=== PATIENT | male | born 1935 | race Caucasian/White ===

== ENCOUNTER 2020-02-22 22:30 | Observation (INO) ==
--- NOTE | 2020-02-22 23:35 | DR.ABDMALE ---
HPI Time seen Time Seen by Provider: 02/22/20 23:34 PCP Primary Care Physician: LEXI HPI comment HPI Comment: PATIENT IS 84YR OLD MALE IN ER WITH ABDOMINAL PAIN WORSE FOR SEVERAL HOURS. PATIENT IS HAVING NAUSEA WITH PAIN. DENIES FEVER, DIARRHEA OR DYSURIA. DENIES SIMILAR PAIN PREVIOULY. PAIN IS 8/10 AND RADIATES TO THE BACK. Complaint Chief Complaint Doctors Comments: ABDOMINAL PAIN TIMES SEVERAL HOURS. Chief Complaint:: Having abdominal pain. Pt states he thought it was just gas pains, but has gotten worse in the last few hours. Last bowel movement was this morning. Patient states he has not took any medications for the pain. The pain started at 11AM this morning. Self Treatment fo Chief Complaint: NONE COVID-19 Coronavirus risk:travel/contact w/high risk person: No Has patient experienced Coronavirus symptoms: No Reviewed Nurses Notes Review: Yes Mode of arrival Mode of Arrival: Ambulatory Timing Onset of Chief Complaint: 02/22/20 Came on: Suddenly Duration Duration: Constant Duration: Hours Location Location: Diffuse Severity Severity: Moderate Quality Quality: Sharp Context Onset: Suddenly History of: None Modifying factors Worsening Factors: Exertion Improving Factors: Lying Still Associated signs and symptoms Associated Signs and Symptoms: Nausea PMH PMH Past Medical History: Yes Past Medical History: Arthritis Past Surgical History: Yes Surgical History: Ortho Surgery Past Surgical History Comment: Left knee replacement, Sublingual hernia repair Family History History of Family Medical Conditions: No Social History Does patient currently use any type of tobacco product: No Have you used tobacco products in the last 12 months: No Type of Tobacco Use: None Does any household member use tobacco: No Alcohol Use: None Do you use any recreational Drugs:: No Lives With: Alone Lives Where: Home Infectious screening In the last 2 months have you had wt loss of >10#?: NO Have you had fever, night sweats or hemotysis?: No Have you traveled outside the country in the last 6 months?: No Isolation: Standard ROS Review of Systems Constitutional: No Symptoms Reported and See HPI; negative Fever, Weakness and Fatigue Eyes: No Symptoms Reported and See HPI ENTM: No Symptoms Reported and See HPI; negative Nose Discharge and Nose Congestion Respiratoy: No Symptoms Reported and See HPI; negative Moist Cough, Short of Breath and Wheezing Cardiovascular: No Symptoms Reported and See HPI Gastrointestinal/Abdominal: No Symptoms Reported, See HPI, Abdominal Pain and Nausea; negative Diarrhea and Vomiting Genitourinary: No Symptoms Reported and See HPI; negative Dysuria Neurological: No Symptoms Reported and See HPI; negative Headache, Weakness and Dizziness Musculoskeletal: No Symptoms Reported, See HPI and Back Pain; negative Muscle Pain Integumentary: No Symptoms Reported and See HPI; negative Change in Color, Rash and Juandice Hematologic/Lymphatic: See HPI and Easy Bruising; negative Swollen Glands Endocrine: See HPI and Decreased Appetite; negative Increased Thirst and Increased Urine Psychiatric: No Symptoms Reported and See HPI All Other Systems: Reviewed and Negative PE Vital Signs Vital Signs: Temp Pulse Resp BP Pulse Ox 02/23/20 04:51 20 02/23/20 04:21 18 02/22/20 22:37 97.8 F 73 22 197/79 100 General Limitations: No Limitations General Appearance: Alert and In No Apparent Distress Head Head Exam: Normal Inspection Eyes Eye exam: Normal Appearance and PERRL; negative Scleral Icterus and Conjunctival Injection ENT ENT Exam: Normal Exam, Normal Oropharynx, Normal External Ear Exam and TM's Normal Bilaterally Neck Neck Exam: Normal Inspection and Trachea Midline; negative Tenderness and Lymphadenopathy Chest Chest Inspection: Normal Inspection and Symmetric Chest Wall Rise; negative Tenderness Respiratory Respiratory Exam: Normal Lung Sounds Bilat; negative Accessory Muscle Use, Chest Wall Tenderness and Respiratory Distress Respiratory Exam: Bilateral: Rhonchi and Lower: Rhonchi Cardiovascular Cardiovascular Exam: Regular Rate, Normal Rhythm and Normal Heart Sounds; negative Systolic Murmur and Diastolic Murmur Abdominal Exam Abdominal Exam: Normal Inspection, Normal Bowel Sounds and Soft; negative T enderness Rectal Rectal Exam: Deferred Back Back Exam: Normal Inspection; negative (R) CVA Tenderness and (L) CVA Tenderness Extremeties Extremities Exam: Normal Inspection and Normal Capillary Refill; negative Tenderness, Edema and Calf Tenderness Exam: Male: Deferred Neurologic Neurological Exam: Alert and Oriented X3 Psychiatric Psychiatric Exam: Normal Affect and Normal Mood Skin Skin Exam: Warm, Dry, Intact and Normal Color MDM Additional Information Obtained From Additional information provided by: Old Records Differential Diagnosis Differential Diagnosis: Bowel Obstruction, Cholcystitis, Cholelethiasis, Constipation, Diverticular disease, Gastritus/PUD, Gastroenteritis, Inflammatory BD, Pancreatitis, Urinary tract infection and Urolithiasis COURSE Treatment Treatment: SEE ORDERS. Consultation Consultation Comments: PATIENT DISCUSSED WITH DR. LAN AND HE WILL ADMIT PATIENT. Education/Counseling Education/Counseling: Patient Educated On: Diagnosis and Needs for Follow Up ROR Labs Reviewed Laboratory Results Reviewed?: Yes Result Diagrams: 02/25/20 05:43 02/25/20 05:43 Laboratory: WBC 9.8 X10^3/uL (3.6-10.0) 02/22/20 23:51 RBC 4.33 X10^6/uL (4.7-6.0) L 02/22/20 23:51 Hgb 13.4 g/dL (13.5-18.0) L 02/22/20 23:51 Hct 40.4 % (42.0-54.0) L 02/22/20 23:51 MCV 93.5 fL (80.0-100.0) 02/22/20 23:51 MCH 31.0 pg (27.0-34.0) 02/22/20 23:51 MCHC 33.1 g/dL (33.0-35.0) 02/22/20 23:51 RDW 14.0 % (11.6-16.5) 02/22/20 23:51 Plt Count 145 X10^3/uL (150.0-450.0) L 02/22/20 23:51 MPV 9.3 fL (7.4-11.0) 02/22/20 23:51 Neut % (Auto) 84.6 % (42.0-75.0) H 02/22/20 23:51 Lymph % (Auto) 7.0 % (21.0-51.0) L 02/22/20 23:51 [place] % (Auto) 8.2 % (0.0-13.0) 02/22/20 23:51 Eos % (Auto) 0.0 % (0.9-2.9) L 02/22/20 23:51 Baso % (Auto) 0.2 % (0.2-1.0) 02/22/20 23:51 Neut # (Auto) 8.3 x10^3/uL (2.2-4.8) H 02/22/20 23:51 Lymph # (Auto) 0.7 X10^3/uL (1.3-2.9) L 02/22/20 23:51 [place] # (Auto) 0.8 x10^3/uL (0.3-0.8) 02/22/20 23:51 Eos # (Auto) 0.0 x10^3/uL (0.0-0.2) 02/22/20 23:51 Baso # (Auto) 0.0 X10^3/uL (0.0-0.1) 02/22/20 23:51 Absolute Nucleated RBC 0.0 /100WBC 02/22/20 23:51 Sodium 141 mmol/L (136-145) 02/22/20 23:51 Corrected Sodium 142 mmol/L (136-145) 02/22/20 23:51 Potassium 3.9 mmol/L (3.5-5.1) 02/22/20 23:51 Chloride 104 mmol/L (98-107) 02/22/20 23:51 Carbon Dioxide 28.7 mmol/L (21-32) 02/22/20 23:51 BUN 17 mg/dL (7-18) 02/22/20 23:51 Creatinine 0.98 mg/dL (0.70-1.30) 02/22/20 23:51 Est GFR (MDRD) Af Amer > 60 (>60) 02/22/20 23:51 Est GFR (MDRD) Non-Af > 60 (>60) 02/22/20 23:51 Glucose 134 mg/dL (65-99) H 02/22/20 23:51 Calcium 9.7 mg/dL (8.5-10.1) 02/22/20 23:51 Corrected Calcium 10.3 mg/dL (8.5-10.1) H 02/22/20 23:51 Total Bilirubin 1.10 mg/dL (0.2-1.0) H 02/22/20 23:51 AST 20 Units/L (15-37) 02/22/20 23:51 ALT 18 Units/L (12-78) 02/22/20 23:51 Alkaline Phosphatase 72 Units/L (46-116) 02/22/20 23:51 Creatine Kinase 30 Units/L (39-308) L 02/22/20 23:51 CK-MB (CK-2) 1.8 ng/mL (0-4.0) 02/22/20 23:51 CK/CKMB % Calc 6.0 % (<4) 02/22/20 23:51 Troponin I < 0.02 ng/mL (0-1.5) 02/22/20 23:51 Total Protein 6.4 g/dL (6.4-8.2) 02/22/20 23:51 Albumin 3.3 g/dL (3.4-5.0) L 02/22/20 23:51 Globulin 3.1 g/dL (2.5-4.5) 02/22/20 23:51 Albumin/Globulin Ratio 1.1 Ratio (1.1-2.1) 02/22/20 23:51 Amylase 101 Units/L (25-115) 02/22/20 23:51 Lipase 126 Units/L (73-393) 02/22/20 23:51 Specimen Type Clean catch urine 02/23/20 00:20 Urine Color Yellow (YELLOW) 02/23/20 00:20 Urine Appearance Clear (CLEAR) 02/23/20 00:20 Urine pH 6.0 (5.0 - 8.0) 02/23/20 00:20 Ur Specific [place] 1.020 (1.000-1.030) 02/23/20 00:20 Urine Protein 1+ (NEGATIVE) 02/23/20 00:20 Urine Glucose (UA) Negative (NEGATIVE) 02/23/20 00:20 Urine Ketones 3+ (NEGATIVE) 02/23/20 00:20 Urine Occult Blood 2+ (NEGATIVE) 02/23/20 00:20 Urine Nitrite Negative (NEGATIVE) 02/23/20 00:20 Urine Bilirubin Negative (NEGATIVE) 02/23/20 00:20 Urine Urobilinogen Normal (NORMAL) 02/23/20 00:20 Ur Leukocyte Esterase Negative (NEGATIVE) 02/23/20 00:20 Urine RBC 3-5 /HPF (0-3) A 02/23/20 00:20 Urine WBC None seen /HPF (0-5) 02/23/20 00:20 Ur Squamous Epith Cells Rare /HPF (NEGATIVE) 02/23/20 00:20 Urine Bacteria Negative /HPF (NEGATIVE) 02/23/20 00:20 Urine Mucus Moderate /HPF (NEGATIVE) 02/23/20 00:20 Ur Culture Indicated? No/not indicated 02/23/20 00:20 SARS CoV-2 RNA Rapid SOWMYA Negative (NEGATIVE) 02/23/20 04:20 XRAY XRAY Interpreted by: Radiologist (REPORT NOTED AND DISSSED WITH PATIENT.) and Self EKG Rate: 69 [place]: LAD Rhythm: NSR Block: IVCD Hypertrophy: None ST: Nonsp Opioid Opioid Risk Tool Age (Jeronimo box if 16-45): No History of Preadolescent Sexual Abuse: No Total: 0 Total Score Risk Category: Low Risk Copyright: Triston OROZCO predicting aberrant behaviors Diagnosis Discharge Problem: Cholelithiasis Qualifiers: Cholelithiasis location: gallbladder Cholecystitis presence: with cholecystitis Cholecystitis acuity: acute Biliary obstruction: with biliary obstruction Qualified Code(s): K80.01 - Calculus of gallbladder with acute cholecystitis with obstruction Abdominal pain Qualifiers: Abdominal location: generalized Qualified Code(s): R10.84 - Generalized abdominal pain Instructions Instructions: Benign Prostatic Hypertrophy Laparoscopic Cholecystectomy, Care After Dumping Syndrome Diet Indwelling Urinary Catheter Care, Adult, [id number] Cholecystitis, [id number] Dumping Syndrome Preventing Constipation After Surgery Forms: Precautions for COVID19 Patient Portal Social Distancing
[2020-02-22] MEDS ORDERED: PEPCID 20 MG IV PREMIX* 20 MG/50 ML BAG IV ONE (23:40)
[2020-02-23 00:01] LABS: BASOPHILS % (AUTO) 0.2 % (0.2-1.0); HEMATOCRIT 40.4 % (42.0-54.0); HEMOGLOBIN 13.4 g/dL (13.5-18.0); LYMPHOCYTES # (AUTO) 0.7 X10^3/uL (1.3-2.9); MEAN CORPUSCULAR HGB CONC 33.1 g/dL (33.0-35.0); MEAN CORPUSCULAR VOLUME 93.5 fL (80.0-100.0); MEAN PLATELET VOLUME 9.3 fL (7.4-11.0); MONOCYTES # (AUTO) 0.8 x10^3/uL (0.3-0.8); MONOCYTES % (AUTO) 8.2 % (0.0-13.0); NEUTROPHILS # (AUTO) 8.3 x10^3/uL (2.2-4.8); NEUTROPHILS % (AUTO) 84.6 % (42.0-75.0); PLATELET COUNT 145 X10^3/uL (150.0-450.0); RED BLOOD COUNT 4.33 X10^6/uL (4.7-6.0); WHITE BLOOD COUNT 9.8 X10^3/uL (3.6-10.0)
[2020-02-23 00:16] LABS: BLOOD UREA NITROGEN 17 mg/dL (7-18); CALCIUM 9.7 mg/dL (8.5-10.1); CARBON DIOXIDE 28.7 mmol/L (21-32); CHLORIDE 104 mmol/L (98-107); COR NA(FOR HYPERGLY) 142 mmol/L (136-145); CREATININE 0.98 mg/dL (0.70-1.30); SODIUM 141 mmol/L (136-145); TROPONIN I < 0.02 ng/mL (0-1.5); eGFR NON BLACK RACES > 60 (>60)
[2020-02-23 00:20] LABS: ALANINE AMINOTRANSFERASE 18 Units/L (12-78); ALBUMIN 3.3 g/dL (3.4-5.0); ALKALINE PHOSPHATASE 72 Units/L (46-116); AMYLASE 101 Units/L (25-115); ASPARTATE AMINO TRANSFERASE 20 Units/L (15-37); COR CA(FOR HYPOALB) 10.3 mg/dL (8.5-10.1); CREATINE KINASE 30 Units/L (39-308); CREATINE KINASE MB 1.8 ng/mL (0-4.0); LIPASE 126 Units/L (73-393); TOTAL PROTEIN 6.4 g/dL (6.4-8.2)
[2020-02-23] MEDS ORDERED: PEPCID 20 MG IV PREMIX* 20 MG/50 ML BAG IV ONE (00:25)
[2020-02-23] MEDS ORDERED: NS 100 ML IV 100 ML IV ONE (00:47)
[2020-02-23 00:59] LABS: BILIRUBIN,URINE NEGATIVE (NEGATIVE); BLOOD/HEMOGLOBIN,URINE 2+ (NEGATIVE); GLUCOSE, URINE NEGATIVE (NEGATIVE); KETONES,URINE 3+ (NEGATIVE); LEUKOCYTE ESTERASE ,URINE NEGATIVE (NEGATIVE); NITRITES,URINE NEGATIVE (NEGATIVE); PROTEIN,URINE 1+ (NEGATIVE); UROBILINOGEN,URINE NORMAL (NORMAL)
[2020-02-23 01:09] LABS: APPEARANCE,URINE CLEAR (CLEAR); BACTERIA,URINE NEGATIVE /HPF (NEGATIVE); COLOR,URINE YELLOW (YELLOW); MUCUS,URINE MODERATE /HPF (NEGATIVE); SQUAMOUS EPITHELIAL CELL,UR RARE /HPF (NEGATIVE)
--- NOTE | 2020-02-23 02:49 | CT ---
HISTORYPT C/O ABDOMINAL PAINSTUDYABDOMEN/PELVIS WITH CONCOMPARISONNoneTECHNIQUEMultiple axial images of the abdomen and pelvis were obtained from the lung bases to the pubic symphysis after the administration of IV contrast. Dose reduction techniques including Automated Exposure Control (AEC) and adjustment of mA and kV were utilized.FINDINGSThe visualized portions of the lung bases are unremarkable . The, spleen, pancreas, kidneys, and adrenal glands are unremarkable in their CT appearance. The liver is normal in size. There is a well-circumscribed 7.8 cm hepatic cyst. No biliary ductal dilatation. The gallbladder is present contains calcified gallstones and is markedly distended. There is evidence of mild gallbladder wall thickening and/or pericholecystic fluid.. No significant mesenteric lymphadenopathy or stranding can be observed. No free fluid or free air is seen within the abdomen. No bowel wall thickening or bowel dilatation is present. The the colon is normal in caliber. There are numerous diverticula arising from the descending and sigmoid colon without evidence of acute diverticulitis.. There is marked prostate gland hypertrophy which indents the floor of the urinary bladder. The bony structures are grossly intact.IMPRESSIONCholelithiasis with gallbladder distention and mild gallbladder wall thickening and/or pericholecystic fluid. Findings raise the possibility of acute cholecystitis. Correlate clinically.Colonic diverticulosis without evidence of diverticulitis.Marked prostate gland hypertrophy.Electronically signed by: Corby Chen (Feb 23, 2020 02:47:47)
[2020-02-23] MEDS ORDERED: DEMEROL INJ IVP ONE (04:12)
[2020-02-23] MEDS ORDERED: ZOFRAN INJ 4 MG VIAL IVP ONE ×2 (04:12→08:00)
[2020-02-23] MEDS ORDERED: DEMEROL INJ ONE ×2 (04:14→07:21)
[2020-02-23] MEDS ORDERED: ZOFRAN INJ 4 MG VIAL ONE ×3 (04:14→14:15)
--- NOTE | 2020-02-23 07:19 | RAD ---
HISTORYSURGICAL CLEARANCESTUDYCHEST, 1 VIEWCOMPARISONNoneTECHNIQUEAP view of the chestFINDINGSCardiac and mediastinal contours are within normal limits. Lungs are hyperexpanded with lucencies and mild scattered interstitial opacities. No definite pleural effusion or pneumothorax.IMPRESSIONSuspect underlying emphysema.Electronically signed by: Delio Christensen (Feb 23, 2020 07:17:52)
[2020-02-23] MEDS ORDERED: NS 1000 ML 1,000 ML ONE (07:22)
[2020-02-23] MEDS ORDERED: DEMEROL INJ IVP PRN (07:39)
[2020-02-23] MEDS ORDERED: NS 1000 ML 1,000 ML IV SCH ×2 (08:00→08:58)
[2020-02-23] MEDS ORDERED: ZOFRAN INJ 4 MG VIAL IVP PRN ×2 (08:58→15:34)
[2020-02-23] MEDS ORDERED: PEPCID 20 MG IV PREMIX* 20 MG/50 ML BAG IV PRN (08:58)
[2020-02-23] MEDS ORDERED: DILAUDID INJ IVP STA (12:19)
--- NOTE | 2020-02-23 12:51 | DR.H&P ---
H&P - History & Physical for Day of: H&P Date: 02/23/20 - Chief Complaint Chief Complaint: abdominal pain, n/v - History of Present Illness History of Present Illness: PT IS 84 WM ER ADMISSION WITH CO ABDOMINAL PAIN, ONSET SUNDAY AROUND NOON AFTER EATING. PT DENIES ANY CHEST PAIN OR SOB, DENIES FEVER OR FLU LIKE SYMPTOMS. PT DENIES ANY PMH OF CAD OR HTN. PT REPORTS TAKING FLOMAX FOR BPH PRN. PT HAD CT ABD/PELVIS WITH ACUTE CHOLECYSTITIS. PT ADMITTED FOR TREATMENT OF ACUTE ILLNESS. - Past Medical History Past Medical History: Arthritis - Past Surgical History Surgical History: Ortho Surgery Additional Surgical History: HERNIA REPAIR - Social History Does patient currently use any type of tobacco product: No Have you used tobacco products in the last 12 months: No Type of Tobacco Use: None Does any household member use tobacco: No Alcohol Use: None Prescription drug monitoring program results: PDMP reviewed and no concerns identified - Medications Home Medications: No Known Drug Allergies Allergy (Verified 02/22/20 22:47) CONTINUE taking the following medications tamsulosin [Flomax] 0.4 mg PO DAILY 02/23/20 [History] - Review of Systems Constitutional: No Symptoms Reported. denies: Fever, Chills Eyes: No Symptoms Reported ENT: No Symptoms Reported Respiratory: No Symptoms Reported Cardiovascular: No Symptoms Reported Gastrointestinal: Nausea, Vomiting, Abdominal Pain Genitourinary: No Symptoms Reported Musculoskeletal: No Symptoms Reported Skin: No Symptoms Reported Neurological: No Symptoms Reported - Physical Exam Vital Signs: Temperature 98.3 F Pulse Rate [Left Brachial] 68 Pulse Rate 73 Respiratory Rate 18 Blood Pressure [Left Arm] 172/80 Blood Pressure 197/79 O2 Sat by Pulse Oximetry 100 Oriented: Normal Eyes: Normal Ear: Normal Nose: Normal Throat: Normal Respiratory: RLL Diminished, LLL Diminished Cardiovascular: Normal : Normal Auscultation: Bowel Sounds: Normal Palpation: Normal Tenderness: Normal Skin: Decreased [place] Musculoskeletal: Normal Psychiatric: Normal Mood Description: Calm Speech Pattern: Clear, Appropriate - Assessment/Plan (1) Acute cholecystitis Status: Acute Plan: ADMIT, NPO. CXR, EKG ON ADMISSION, AMYLASE LIPASE. SURGICAL CONSULT. PAIN AND NAUSEA CONTROL. CT ABD PELVIS DONE IN ER ON ADMISSION. (2) Cholelithiasis Qualifiers: Cholelithiasis location: gallbladder Cholecystitis presence: with cholecystitis Cholecystitis acuity: acute Biliary obstruction: with biliary obstruction Qualified Code(s): K80.01 - Calculus of gallbladder with acute cholecystitis with obstruction Status: Acute (3) Abdominal pain Qualifiers: Abdominal location: generalized Qualified Code(s): R10.84 - Generalized abdominal pain Status: Acute - Allergies Allergies/Adverse Reactions: Allergies Allergy/AdvReac Type Severity Reaction Status Date / Time No Known Drug Allergies Allergy Verified 02/22/20 22:47
[2020-02-23] MEDS ORDERED: NS IRRIGATION* 3,000 ML ONE (13:35)
[2020-02-23] MEDS ORDERED: LR 1000 ML IV 1,000 ML IV ONE (13:52)
[2020-02-23] MEDS ORDERED: ANCEF 1 GRAM IV PREMIX* 1 G/50 ML BAG IV ONE (13:52)
[2020-02-23] MEDS ORDERED: BACTROBAN TOPICAL OINT ONE ×2 (14:11)
[2020-02-23] MEDS ORDERED: FENTANYL INJ 250 mcg ONE (14:14)
[2020-02-23] MEDS ORDERED: NEOSTIGMINE INJ ONE (14:15)
[2020-02-23] MEDS ORDERED: SUPRANE ONE (14:15)
[2020-02-23] MEDS ORDERED: ROBINUL ONE (14:15)
[2020-02-23] MEDS ORDERED: DIPRIVAN VIAL ONE (14:15)
[2020-02-23] MEDS ORDERED: QUELICIN (OR ANECTINE) ONE (14:15)
[2020-02-23] MEDS ORDERED: NORCURON INJ 10 MG VIAL ONE (14:15)
[2020-02-23] MEDS ORDERED: PHENERGAN INJ 25 MG IM PRN (15:34)
[2020-02-23] MEDS ORDERED: REGLAN INJ 10 MG VIAL IVP PRN (15:34)
[2020-02-23] MEDS ORDERED: DILAUDID INJ IVP PRN (15:34)
[2020-02-23] MEDS ORDERED: BENADRYL INJ 50 MG VIAL IVP PRN (15:34)
[2020-02-23] MEDS ORDERED: DILAUDID INJ ONE (15:40)
[2020-02-23] MEDS: ZOSYN VIAL 3.375 GRAMS 3.375 G in NS 100 ML IV + SPIKE MINIBAG* 100 ML IV SCH ×2 (16:18→22:15)
[2020-02-23] MEDS: D5 1/2 NS 1000 ML 1,000 ML IV SCH (16:18)
[2020-02-23 19:14] VITALS: BMI 12.6
[2020-02-23] MEDS: DILAUDID INJ IVP PRN (19:31)
[2020-02-23] MEDS: FLOMAX PO SCH (20:09)
[2020-02-24] MEDS: D5 1/2 NS 1000 ML 1,000 ML IV SCH ×4 (00:33→16:26)
[2020-02-24] MEDS: DILAUDID INJ IVP PRN (02:46)
[2020-02-24] MEDS: ZOSYN VIAL 3.375 GRAMS 3.375 G in NS 100 ML IV + SPIKE MINIBAG* 100 ML IV SCH ×3 (05:10→21:12)
[2020-02-24 06:32] LABS: ALANINE AMINOTRANSFERASE 22 Units/L (12-78); ALBUMIN 2.7 g/dL (3.4-5.0); ALKALINE PHOSPHATASE 64 Units/L (46-116); AMYLASE 65 Units/L (25-115); ASPARTATE AMINO TRANSFERASE 26 Units/L (15-37); BLOOD UREA NITROGEN 16 mg/dL (7-18); CALCIUM 9.3 mg/dL (8.5-10.1); CARBON DIOXIDE 28.6 mmol/L (21-32); CHLORIDE 104 mmol/L (98-107); COR CA(FOR HYPOALB) 10.3 mg/dL (8.5-10.1); CREATININE 1.19 mg/dL (0.70-1.30); LIPASE 59 Units/L (73-393); SODIUM 138 mmol/L (136-145); TOTAL PROTEIN 5.9 g/dL (6.4-8.2); eGFR NON BLACK RACES > 60 (>60)
[2020-02-24 06:35] LABS: BASOPHILS % (AUTO) 0.4 % (0.2-1.0); EOSINOPHILS # (AUTO) 0.1 x10^3/uL (0.0-0.2); EOSINOPHILS % (AUTO) 0.7 % (0.9-2.9); HEMATOCRIT 38.9 % (42.0-54.0); HEMOGLOBIN 13.4 g/dL (13.5-18.0); LYMPHOCYTES # (AUTO) 1.1 X10^3/uL (1.3-2.9); LYMPHOCYTES % (AUTO) 10.2 % (21.0-51.0); MEAN CORPUSCULAR HEMOGLOBIN 31.8 pg (27.0-34.0); MEAN CORPUSCULAR HGB CONC 34.4 g/dL (33.0-35.0); MEAN CORPUSCULAR VOLUME 92.5 fL (80.0-100.0); MEAN PLATELET VOLUME 9.6 fL (7.4-11.0); MONOCYTES # (AUTO) 1.4 x10^3/uL (0.3-0.8); MONOCYTES % (AUTO) 13.3 % (0.0-13.0); NEUTROPHILS # (AUTO) 7.8 x10^3/uL (2.2-4.8); NEUTROPHILS % (AUTO) 75.4 % (42.0-75.0); PLATELET COUNT 142 X10^3/uL (150.0-450.0); RED BLOOD COUNT 4.21 X10^6/uL (4.7-6.0); WHITE BLOOD COUNT 10.3 X10^3/uL (3.6-10.0)
--- NOTE | 2020-02-24 08:12 | DR.PROGNOT ---
Hospital Progress Notes - Progress Note for Day of: Progress Note Date: 02/24/20 - Chief Complaint Chief Complaint: post op lap bobby . having difficulty voiding . normal CBC and CMp . afebrile . ARIANA was removed . - Past Medical Family Social History Past Med/Fam/Surg Hx: No changes since H&P Allergies: Allergies No Known Drug Allergies Allergy (Verified 02/22/20 22:47) - Review Of Systems ROS: No change since H&P - Vital Signs Vital Signs: Temperature 97.6 F Pulse Rate [Left Brachial] 67 Pulse Rate 66 Respiratory Rate 18 Blood Pressure [Left Arm] 153/72 Blood Pressure 168/81 O2 Sat by Pulse Oximetry 100 - Physical Exam Oriented: Normal Eyes: Normal Ear: Normal Nose: Normal Throat: Normal Cardiovascular: Normal : Normal GI:Auscultation: Normal GI:Palpation: Normal GI: Tenderness: Normal, RUQ (soft abdomen . BS+.. mild diffuse tenderness .) Skin: Decreased Turgur Musculoskeletal: Normal Psychiatric: Normal Mood Description: Calm Speech Pattern: Clear, Delayed - Laboratory and Diagnostics Result Diagrams: 02/24/20 05:15 02/24/20 05:15 Labs: Laboratory WBC 10.3 X10^3/uL (3.6-10.0) H 02/24/20 05:15 RBC 4.21 X10^6/uL (4.7-6.0) L 02/24/20 05:15 Hgb 13.4 g/dL (13.5-18.0) L 02/24/20 05:15 Hct 38.9 % (42.0-54.0) L 02/24/20 05:15 MCV 92.5 fL (80.0-100.0) 02/24/20 05:15 MCH 31.8 pg (27.0-34.0) 02/24/20 05:15 MCHC 34.4 g/dL (33.0-35.0) 02/24/20 05:15 RDW 14.0 % (11.6-16.5) 02/24/20 05:15 Plt Count 142 X10^3/uL (150.0-450.0) L 02/24/20 05:15 MPV 9.6 fL (7.4-11.0) 02/24/20 05:15 Neut % (Auto) 75.4 % (42.0-75.0) H 02/24/20 05:15 Lymph % (Auto) 10.2 % (21.0-51.0) L 02/24/20 05:15 [place] % (Auto) 13.3 % (0.0-13.0) H 02/24/20 05:15 Eos % (Auto) 0.7 % (0.9-2.9) L 02/24/20 05:15 Baso % (Auto) 0.4 % (0.2-1.0) 02/24/20 05:15 Neut # (Auto) 7.8 x10^3/uL (2.2-4.8) H 02/24/20 05:15 Lymph # (Auto) 1.1 X10^3/uL (1.3-2.9) L 02/24/20 05:15 [place] # (Auto) 1.4 x10^3/uL (0.3-0.8) H 02/24/20 05:15 Eos # (Auto) 0.1 x10^3/uL (0.0-0.2) 02/24/20 05:15 Baso # (Auto) 0.0 X10^3/uL (0.0-0.1) 02/24/20 05:15 Absolute Nucleated RBC 0.2 /100WBC 02/24/20 05:15 Sodium 138 mmol/L (136-145) 02/24/20 05:15 Corrected Sodium TNP 02/24/20 05:15 Potassium 4.5 mmol/L (3.5-5.1) 02/24/20 05:15 Chloride 104 mmol/L (98-107) 02/24/20 05:15 Carbon Dioxide 28.6 mmol/L (21-32) 02/24/20 05:15 BUN 16 mg/dL (7-18) 02/24/20 05:15 Creatinine 1.19 mg/dL (0.70-1.30) 02/24/20 05:15 Est GFR (MDRD) Af Amer > 60 (>60) 02/24/20 05:15 Est GFR (MDRD) Non-Af > 60 (>60) 02/24/20 05:15 Glucose 110 mg/dL (65-99) H 02/24/20 05:15 Calcium 9.3 mg/dL (8.5-10.1) 02/24/20 05:15 Corrected Calcium 10.3 mg/dL (8.5-10.1) H 02/24/20 05:15 Total Bilirubin 1.30 mg/dL (0.2-1.0) H 02/24/20 05:15 AST 26 Units/L (15-37) 02/24/20 05:15 ALT 22 Units/L (12-78) 02/24/20 05:15 Alkaline Phosphatase 64 Units/L (46-116) 02/24/20 05:15 Creatine Kinase 30 Units/L (39-308) L 02/22/20 23:51 CK-MB (CK-2) 1.8 ng/mL (0-4.0) 02/22/20 23:51 CK/CKMB % Calc 6.0 % (<4) 02/22/20 23:51 Troponin I < 0.02 ng/mL (0-1.5) 02/22/20 23:51 Total Protein 5.9 g/dL (6.4-8.2) L 02/24/20 05:15 Albumin 2.7 g/dL (3.4-5.0) L 02/24/20 05:15 Globulin 3.2 g/dL (2.5-4.5) 02/24/20 05:15 Albumin/Globulin Ratio 0.8 Ratio (1.1-2.1) L 02/24/20 05:15 Amylase 65 Units/L (25-115) 02/24/20 05:15 Lipase 59 Units/L (73-393) L 02/24/20 05:15 Specimen Type Clean catch urine 02/23/20 00:20 Urine Color Yellow (YELLOW) 02/23/20 00:20 Urine Appearance Clear (CLEAR) 02/23/20 00:20 Urine pH 6.0 (5.0 - 8.0) 02/23/20 00:20 Ur Specific [place] 1.020 (1.000-1.030) 02/23/20 00:20 Urine Protein 1+ (NEGATIVE) 02/23/20 00:20 Urine Glucose (UA) Negative (NEGATIVE) 02/23/20 00:20 Urine Ketones 3+ (NEGATIVE) 02/23/20 00:20 Urine Occult Blood 2+ (NEGATIVE) 02/23/20 00:20 Urine Nitrite Negative (NEGATIVE) 02/23/20 00:20 Urine Bilirubin Negative (NEGATIVE) 02/23/20 00:20 Urine Urobilinogen Normal (NORMAL) 02/23/20 00:20 Ur Leukocyte Esterase Negative (NEGATIVE) 02/23/20 00:20 Urine RBC 3-5 /HPF (0-3) A 02/23/20 00:20 Urine WBC None seen /HPF (0-5) 02/23/20 00:20 Ur Squamous Epith Cells Rare /HPF (NEGATIVE) 02/23/20 00:20 Urine Bacteria Negative /HPF (NEGATIVE) 02/23/20 00:20 Urine Mucus Moderate /HPF (NEGATIVE) 02/23/20 00:20 Ur Culture Indicated? No/not indicated 02/23/20 00:20 SARS CoV-2 RNA Rapid SOWMYA Negative (NEGATIVE) 02/23/20 04:20 Tissue Pathology To follow 02/23/20 15:05 - Assessment and Plan 1: acute calculous cholecystitis with gangrenous changes . urinary retention . to ambulate . advance diet and maybe d/c if voiding . to follow in 10 days . - Problem Patient Problems: Patient Problems Cholelithiasis (Acute) K80.20 Abdominal pain (Acute) R10.9 Acute cholecystitis (Acute) K81.0
[2020-02-24] MEDS: PROTONIX INJ 40 MG VIAL IVP SCH (08:43)
[2020-02-24] MEDS: FLOMAX PO SCH (08:44)
[2020-02-24] MEDS: LOVENOX INJ 40 MG SYR SC SCH (08:48)
[2020-02-24] MEDS ORDERED: PATIENT'S HOME MEDICATION IV NR (11:00)
[2020-02-24] MEDS ORDERED: DILAUDID INJ IVP PRN (13:00)
[2020-02-24] MEDS ORDERED: ZOSYN VIAL 3.375 GRAMS IV ONE (20:05)
[2020-02-24] MEDS ORDERED: NS 100 ML IV + SPIKE MINIBAG* 100 ML IV ONE (20:05)
[2020-02-25] MEDS: D5 1/2 NS 1000 ML 1,000 ML IV SCH ×3 (01:36→08:23)
[2020-02-25] MEDS ORDERED: ZOSYN VIAL 3.375 GRAMS IV ONE (03:53)
[2020-02-25] MEDS ORDERED: NS 100 ML IV + SPIKE MINIBAG* 100 ML IV ONE (03:54)
[2020-02-25] MEDS: ZOSYN VIAL 3.375 GRAMS 3.375 G in NS 100 ML IV + SPIKE MINIBAG* 100 ML IV SCH ×2 (05:05→15:14)
[2020-02-25 06:44] LABS: BASOPHILS % (AUTO) 0.3 % (0.2-1.0); EOSINOPHILS # (AUTO) 0.2 x10^3/uL (0.0-0.2); EOSINOPHILS % (AUTO) 2.9 % (0.9-2.9); HEMATOCRIT 34.9 % (42.0-54.0); HEMOGLOBIN 11.9 g/dL (13.5-18.0); LYMPHOCYTES # (AUTO) 1.2 X10^3/uL (1.3-2.9); LYMPHOCYTES % (AUTO) 15.3 % (21.0-51.0); MEAN CORPUSCULAR HEMOGLOBIN 31.9 pg (27.0-34.0); MEAN CORPUSCULAR HGB CONC 34.3 g/dL (33.0-35.0); MEAN CORPUSCULAR VOLUME 93.1 fL (80.0-100.0); MEAN PLATELET VOLUME 9.7 fL (7.4-11.0); MONOCYTES # (AUTO) 1.1 x10^3/uL (0.3-0.8); MONOCYTES % (AUTO) 13.8 % (0.0-13.0); NEUTROPHILS # (AUTO) 5.3 x10^3/uL (2.2-4.8); NEUTROPHILS % (AUTO) 67.7 % (42.0-75.0); PLATELET COUNT 129 X10^3/uL (150.0-450.0); RED BLOOD COUNT 3.74 X10^6/uL (4.7-6.0); WHITE BLOOD COUNT 7.8 X10^3/uL (3.6-10.0)
[2020-02-25 06:57] LABS: ALANINE AMINOTRANSFERASE 15 Units/L (12-78); ALBUMIN 2.2 g/dL (3.4-5.0); ALKALINE PHOSPHATASE 49 Units/L (46-116); ASPARTATE AMINO TRANSFERASE 16 Units/L (15-37); BLOOD UREA NITROGEN 16 mg/dL (7-18); CALCIUM 8.5 mg/dL (8.5-10.1); CARBON DIOXIDE 26.9 mmol/L (21-32); CHLORIDE 106 mmol/L (98-107); COR CA(FOR HYPOALB) 9.9 mg/dL (8.5-10.1); CREATININE 1.04 mg/dL (0.70-1.30); SODIUM 141 mmol/L (136-145); TOTAL PROTEIN 5.1 g/dL (6.4-8.2); eGFR NON BLACK RACES > 60 (>60)
[2020-02-25] MEDS: LOVENOX INJ 40 MG SYR SC SCH (08:23)
[2020-02-25] MEDS: PROTONIX INJ 40 MG VIAL IVP SCH (08:23)
[2020-02-25] MEDS: FLOMAX PO SCH (08:23)
[2020-02-25 12:20] VITALS: BP 147/67
== END 2020-02-25 15:55 | disposition home health service (06) ==
LOC: ER 22:32 → MED/SURG 22:32 → OBS 02-24 16:35
PROVIDERS: ADMIT Internal Medicine; ATTEND Internal Medicine
DX: K80.00 Calculus of gallbladder with acute cholecystitis without obstruction; N40.1 Benign prostatic hyperplasia with lower urinary tract symptoms; R13.12 Dysphagia, oropharyngeal phase; K82.A1 Gangrene of gallbladder in cholecystitis; R94.31 Abnormal electrocardiogram [ECG] [EKG]; Z20.828 Contact with and (suspected) exposure to other viral communicable diseases; R10.84 Generalized abdominal pain; R26.89 Other abnormalities of gait and mobility

== ENCOUNTER 2024-03-27 11:18 | Inpatient (IN) ==
[2024-03-27 12:01] VITALS: BMI 23.3
[2024-03-27] MEDS: ZOFRAN INJ 4 MG VIAL IVP ONE ×2 (12:09→15:00)
[2024-03-27] MEDS: MORPHINE SULFATE INJ 2 MG INJ IVP ONE ×3 (12:10→14:55)
[2024-03-27 12:13] LABS: BASOPHILS % (AUTO) 0.6 % (0.2-1.0); EOSINOPHILS % (AUTO) 0.3 % (0.9-2.9); HEMATOCRIT 43.6 % (42.0-54.0); HEMOGLOBIN 14.8 g/dL (13.5-18.0); LYMPHOCYTES % (AUTO) 11.6 % (21.0-51.0); MEAN CORPUSCULAR HEMOGLOBIN 31.2 pg (27.0-34.0); MEAN CORPUSCULAR HGB CONC 33.9 g/dL (33.0-35.0); MEAN CORPUSCULAR VOLUME 91.9 fL (80.0-100.0); MEAN PLATELET VOLUME 9.5 fL (7.4-11.0); MONOCYTES # (AUTO) 0.5 x10^3/uL (0.3-0.8); MONOCYTES % (AUTO) 6.4 % (0.0-13.0); NEUTROPHILS # (AUTO) 6.8 x10^3/uL (2.2-4.8); NEUTROPHILS % (AUTO) 81.1 % (42.0-75.0); PLATELET COUNT 151 X10^3/uL (150.0-450.0); RED BLOOD COUNT 4.74 X10^6/uL (4.7-6.0); RED CELL DISTRIBUTION WIDTH 15.6 % (11.6-16.5); WHITE BLOOD COUNT 8.4 X10^3/uL (3.6-10.0)
[2024-03-27 12:18] LABS: ALANINE AMINOTRANSFERASE 16 Units/L (12-78); ALBUMIN 3.9 g/dL (3.4-5.0); ALKALINE PHOSPHATASE 86 Units/L (46-116); ASPARTATE AMINO TRANSFERASE 17 Units/L (15-37); BLOOD UREA NITROGEN 17 mg/dL (7-18); CALCIUM 9.3 mg/dL (8.5-10.1); CARBON DIOXIDE 27.1 mmol/L (21-32); CHLORIDE 103 mmol/L (98-107); COR NA(FOR HYPERGLY) 140 mmol/L (136-145); CREATININE 0.92 mg/dL (0.70-1.30); GLUCOSE 131 mg/dL (65-99); POTASSIUM 3.6 mmol/L (3.5-5.1); SODIUM 139 mmol/L (136-145); TOTAL PROTEIN 7.5 g/dL (6.4-8.2); eGFR NON BLACK RACES > 60 (>60)
[2024-03-27 12:32] LABS: BILIRUBIN,URINE NEGATIVE (NEGATIVE); BLOOD/HEMOGLOBIN,URINE 2+ (NEGATIVE); GLUCOSE, URINE NEGATIVE (NEGATIVE); KETONES,URINE 1+ (NEGATIVE); LEUKOCYTE ESTERASE ,URINE 1+ (NEGATIVE); NITRITES,URINE NEGATIVE (NEGATIVE); PROTEIN,URINE 2+ (NEGATIVE); UROBILINOGEN,URINE NORMAL (NORMAL)
[2024-03-27 12:36] LABS: APPEARANCE,URINE SLIGHTLY HAZY (CLEAR); COLOR,URINE YELLOW (YELLOW)
[2024-03-27 12:47] LABS: BACTERIA,URINE TRACE /HPF (NEGATIVE); SQUAMOUS EPITHELIAL CELL,UR RARE /HPF (NEGATIVE)
--- NOTE | 2024-03-27 13:45 | CT ---
EXAM:CT ABDOMEN AND PELVIS WITHOUT CONTRASTHISTORY:ABD PAIN, UMB HERNIA;COMPARISON:None.TECHNIQUE:Axial CT images were obtained through the abdomen and pelvis without contrast. Coronal reformatted images were included.All CT scans at this facility use dose modulation, iterative reconstruction, and/or weight based dosing when appropriate to reduce radiation dose to as low as reasonably achievable.FINDINGS:Please note that without the use of intravenous contrast, evaluation of organ parenchyma is limited.LOWER THORAX: Mild dependent atelectasis. Heart size appears normal.ABDOMEN:LIVER: Low-attenuation hepatic lesion may represent a cyst but is incompletely characterized without intravenous contrast. No biliary ductal dilatation.GALLBLADDER: Cholecystectomy clips.SPLEEN: Calcified granulomatous disease.PANCREAS: NormalKIDNEYS: NormalADRENAL GLANDS: NormalGI TRACT: There is a segment of small bowel which extends into a ventral hernia. Tapering of the mesenteric origin of the herniated bowel loops is noted, suggesting possible incarceration. Adjacent fat stranding suggests a degree of inflammation and possible ischemia involving the herniated bowel loops. No associated obstruction. Colonic diverticulosis without evidence of diverticulitis. Small hiatal hernia.LYMPH NODES: No enlarged nodesVESSELS: Mild atherosclerosis.PERITONEUM / RETROPERITONEUM: Ventral hernia as described above containing herniated small bowel loops with demonstrates features of possible inflammation and/or ischemia. Correlation recommended.PELVIS:BLADDER: NormalGENITALS: Prostate is enlarged.BONES: Degenerative changes noted within the lumbar spine and pelvis. No suspicious lytic or blastic lesions.IMPRESSION:Ventral hernia noted, containing a segment of small bowel which demonstrates features of possible inflammation and/or ischemia. Correlation is recommended. No associated bowel obstruction.THIS IS AN ELECTRONICALLY VERIFIED FINAL REPORT03/27/2024 1:42 PM - Electronically signed by Haile Aguirre MD
--- NOTE | 2024-03-27 13:52 | DR.ABDMALE ---
HPI Time seen Time Seen by Provider: 03/27/24 12:56 PCP Primary Care Physician: marni silvestre HPI comment HPI Comment: Patient states that this morning at 9 AM he felt the hernia popping out that is large about 5 inches diameter. Patient states it is tender. He does not appear in significant distress but on palpation he does report pain. Patient denies any fevers or chills. Patient states he was normal yesterday and his family agrees Complaint Chief Complaint:: hernia has popped out. large 5''x4'' hard palpable mass appreciated at the top of the umbilicus. pt staes that this usually reduces but has not today. increased pain and asking for med for relief. COVID-19 Coronavirus risk:travel/contact w/high risk person: No Has patient experienced Coronavirus symptoms: No Mode of arrival Mode of Arrival: EMS Timing Onset of Chief Complaint: 03/27/24 PMH PMH Past Medical History: Yes Past Medical History: Arthritis Past Surgical History: Yes Surgical History: Appendectomy, Cholecystectomy and Joint Replacement Past Surgical History Comment: hernia Family History History of Family Medical Conditions: No Social History Alcohol Use: None Do you use any recreational Drugs:: No Lives With: Alone Lives Where: Home Travel Risk Coronavirus risk:travel/contact w/high risk person: No Has patient experienced Coronavirus symptoms: No Infectious screening In the last 2 months have you had wt loss of >10#?: NO Have you had fever, night sweats or hemotysis?: No Have you traveled outside the country in the last 6 months?: No Isolation: Standard ROS Review of Systems Constitutional: No Symptoms Reported; negative Fever Eyes: No Symptoms Reported ENTM: No Symptoms Reported Respiratoy: No Symptoms Reported Cardiovascular: No Symptoms Reported Gastrointestinal/Abdominal: See HPI and Abdominal Pain; negative Constipation, Diarrhea, Nausea or Vomiting Genitourinary: No Symptoms Reported Neurological: No Symptoms Reported Musculoskeletal: No Symptoms Reported Integumentary: No Symptoms Reported Hematologic/Lymphatic: No Symptoms Reported Endocrine: No Symptoms Reported Psychiatric: No Symptoms Reported All Other Systems: Reviewed and Negative PE Vital Signs Vital Signs: Temp Pulse Resp BP Pulse Ox O2 Del Method 03/27/24 14:30 65 98 03/27/24 14:15 64 99 03/27/24 14:00 64 97 03/27/24 14:00 210/91 03/27/24 12:40 18 03/27/24 13:23 18 03/27/24 13:49 62 99 03/27/24 13:31 199/91 03/27/24 13:31 65 99 03/27/24 13:30 66 99 03/27/24 13:15 73 99 03/27/24 13:00 03/27/24 13:00 03/27/24 13:00 69 99 03/27/24 12:45 70 97 03/27/24 12:32 184/03/27/24 12:32 72 98 03/27/24 12:30 71 97 03/27/24 12:30 200/94 03/27/24 12:20 67 96 03/27/24 12:01 207/03/27/24 12:01 67 98 03/27/24 12:00 65 98 03/27/24 12:53 18 03/27/24 12:10 20 03/27/24 11:54 98.5 F 66 18 224/105 98 Room Air 03/27/24 11:45 66 100 03/27/24 11:38 65 97 03/27/24 11:38 224/105 03/27/24 11:38 224/105 03/27/24 11:38 224/105 03/27/24 11:34 211/117 03/27/24 11:34 211/117 03/27/24 11:34 211/117 03/27/24 11:32 216/100 03/27/24 11:32 216/100 03/27/24 11:32 216/100 03/27/24 11:32 63 98 General Limitations: No Limitations General Appearance: Alert and In No Apparent Distress Head Head Exam: Normal Inspection Eyes Eye exam: Normal Appearance ENT ENT Exam: Normal Exam Neck Neck Exam: Normal Inspection Chest Chest Inspection: Normal Inspection Respiratory Respiratory Exam: Normal Lung Sounds Bilat Cardiovascular Cardiovascular Exam: Regular Rate and Normal Rhythm Abdominal Exam Abdominal Exam: Normal Bowel Sounds, Soft and Hernia (Tender abdominal hernia of about 5 or 6 inch diameter. Not reducible.); negative Guarding, Rebound or Rigidity Rectal Rectal Exam: Deferred Back Back Exam: Normal Inspection Extremeties Extremities Exam: Normal Inspection Exam: Male: Deferred Neurologic Neurological Exam: Alert and Oriented X3 Psychiatric Psychiatric Exam: Normal Affect and Normal Mood Skin Skin Exam: Warm, Dry, Intact and Normal Color COURSE Consultation Called: 13:58 Consultation Comments: Discussed case with surgeon, Dr. Belle, reviewed labs and imaging and he is agreeable with admission and consultation for surgical care. Discussed case with Dr. Maldonado. He is agreeable with admission and consultation for Dr. Belle. ROR Labs Reviewed 03/27/24 11:48 03/27/24 11:48 Laboratory: WBC 8.4 X10^3/uL (3.6-10.0) 03/27/24 11:48 RBC 4.74 X10^6/uL (4.7-6.0) 03/27/24 11:48 Hgb 14.8 g/dL (13.5-18.0) 03/27/24 11:48 Hct 43.6 % (42.0-54.0) 03/27/24 11:48 MCV 91.9 fL (80.0-100.0) 03/27/24 11:48 MCH 31.2 pg (27.0-34.0) 03/27/24 11:48 MCHC 33.9 g/dL (33.0-35.0) 03/27/24 11:48 RDW 15.6 % (11.6-16.5) 03/27/24 11:48 Plt Count 151 X10^3/uL (150.0-450.0) 03/27/24 11:48 MPV 9.5 fL (7.4-11.0) 03/27/24 11:48 Neut % (Auto) 81.1 % (42.0-75.0) H 03/27/24 11:48 Lymph % (Auto) 11.6 % (21.0-51.0) L 03/27/24 11:48 [place] % (Auto) 6.4 % (0.0-13.0) 03/27/24 11:48 Eos % (Auto) 0.3 % (0.9-2.9) L 03/27/24 11:48 Baso % (Auto) 0.6 % (0.2-1.0) 03/27/24 11:48 Neut # (Auto) 6.8 x10^3/uL (2.2-4.8) H 03/27/24 11:48 Lymph # (Auto) 1.0 X10^3/uL (1.3-2.9) L 03/27/24 11:48 [place] # (Auto) 0.5 x10^3/uL (0.3-0.8) 03/27/24 11:48 Eos # (Auto) 0.0 x10^3/uL (0.0-0.2) 03/27/24 11:48 Baso # (Auto) 0.0 X10^3/uL (0.0-0.1) 03/27/24 11:48 Absolute Nucleated RBC 0.0 /100WBC 03/27/24 11:48 Sodium 139 mmol/L (136-145) 03/27/24 11:48 Corrected Sodium 140 mmol/L (136-145) 03/27/24 11:48 Potassium 3.6 mmol/L (3.5-5.1) 03/27/24 11:48 Chloride 103 mmol/L (98-107) 03/27/24 11:48 Carbon Dioxide 27.1 mmol/L (21-32) 03/27/24 11:48 BUN 17 mg/dL (7-18) 03/27/24 11:48 Creatinine 0.92 mg/dL (0.70-1.30) 03/27/24 11:48 Est GFR (MDRD) Af Amer > 60 (>60) 03/27/24 11:48 Est GFR (MDRD) Non-Af > 60 (>60) 03/27/24 11:48 Glucose 131 mg/dL (65-99) H 03/27/24 11:48 Calcium 9.3 mg/dL (8.5-10.1) 03/27/24 11:48 Corrected Calcium TNP 03/27/24 11:48 Total Bilirubin 1.20 mg/dL (0.2-1.0) H 03/27/24 11:48 AST 17 Units/L (15-37) 03/27/24 11:48 ALT 16 Units/L (12-78) 03/27/24 11:48 Alkaline Phosphatase 86 Units/L (46-116) 03/27/24 11:48 Total Protein 7.5 g/dL (6.4-8.2) 03/27/24 11:48 Albumin 3.9 g/dL (3.4-5.0) 03/27/24 11:48 Globulin 3.6 g/dL (2.5-4.5) 03/27/24 11:48 Albumin/Globulin Ratio 1.1 Ratio (1.1-2.1) 03/27/24 11:48 Specimen Type Clean catch urine 03/27/24 12:08 Urine Color Yellow (YELLOW) 03/27/24 12:08 Urine Appearance Slightly hazy (CLEAR) 03/27/24 12:08 Urine pH 6.0 (5.0 - 8.0) 03/27/24 12:08 Ur Specific [place] 1.020 (1.000-1.030) 03/27/24 12:08 Urine Protein 2+ (NEGATIVE) 03/27/24 12:08 Urine Glucose (UA) Negative (NEGATIVE) 03/27/24 12:08 Urine Ketones 1+ (NEGATIVE) 03/27/24 12:08 Urine Blood 2+ (NEGATIVE) 03/27/24 12:08 Urine Nitrite Negative (NEGATIVE) 03/27/24 12:08 Urine Bilirubin Negative (NEGATIVE) 03/27/24 12:08 Urine Urobilinogen Normal (NORMAL) 03/27/24 12:08 Ur Leukocyte Esterase 1+ (NEGATIVE) 03/27/24 12:08 Urine RBC 5-10 /HPF (0-3) A 03/27/24 12:08 Urine WBC Tntc /HPF (0-5) A 03/27/24 12:08 Ur Squamous Epith Cells Rare /HPF (NEGATIVE) 03/27/24 12:08 Urine Bacteria Trace /HPF (NEGATIVE) 03/27/24 12:08 Ur Culture Indicated? Yes/culture set up 03/27/24 12:08 Opioid Opioid Risk Tool Age (Jeronimo box if 16-45): No History of Preadolescent Sexual Abuse: No Total: 0 Total Score Risk Category: Low Risk Copyright: Triston OROZCO predicting aberrant behaviors Discharge Plan Diagnosis Discharge Problem: Abdominal hernia Discharge Plan Patient Disposition: 09 ADMITTED INPATIENT Condition: Stable Prescriptions: No Action tamsulosin [Flomax] 0.4 mg Capsule 0.4 mg PO DAILY finasteride 5 mg Tablet 5 mg PO DAILY Health Concerns: Post Hospitalization: new medications and changes needed to prevent readmission or further decline. Pt educated and given instructions on all concerns. Plan of Treatment: Continue with present treatment and follow up plan. Pt is to keep follow up appointment as instructed and take medications as ordered. Orders to Discharge Patient Discharge Orders: Transfer (Routine); Ordered 03/27/24 Ordered By: Roberto Gray Follow ups/Referrals Follow ups/Referrals: ,Misc [Primary Care Provider] - 3 days Instructions Stand Alone Forms: Find Help Web Site, Post Hospital Follow Up Care
[2024-03-27] MEDS: ZOSYN VIAL 3.375 GRAMS 3.375 G in NS 100 ML IV 100 ML IV SCH (14:28)
[2024-03-27] MEDS: APRESOLINE INJ 20 MG VIAL IVP ONE (14:55)
--- NOTE | 2024-03-27 14:57 | EKG ---
Test Reason : Hernia with suspected ischemic bowel Blood Pressure : */* mmHG Vent. Rate : 67 BPM Atrial Rate : * BPM P-R Int : * ms QRS Dur : 88 ms QT Int : 442 ms P-R-T Axes : * -50 10 degrees QTc Int : 467 ms Atrial fibrillation Left axis deviation Abnormal ECG No previous ECGs available Confirmed by Luis A Slater MD ([id number]) on 03/28/2024 6:31:58 AM Referred By: Confirmed By: Luis A Slater MD
--- NOTE | 2024-03-27 15:18 | RAD ---
EXAM: Portable chest HISTORY: Preop hernia repair COMPARISON: None FINDINGS: Heart is enlarged. No congestive heart failure is noted. No acute alveolar infiltrates or pleural effusions are identified. Bony thorax is unremarkable with exception of bilateral glenohumeral join t degenerative joint disease. A small rounded density in the right cardiophrenic angle was demonstra rg to be mediastinal fat on recent CT abdomen pelvis IMPRESSION: Mild cardiomegaly without congestive heart failure No acute infiltrates THIS IS AN ELECTRONICALLY VERIFIED FINAL REPORT 03/27/2024 2:57 PM - Electronically signed by Kevin Edouard MD
[2024-03-27] MEDS: MORPHINE SULFATE INJ 2 MG INJ ONE (15:25)
[2024-03-27] MEDS: ZOFRAN INJ 4 MG VIAL ONE ×2 (15:25)
[2024-03-27] MEDS: NS 1,000 ML IV 1,000 ML IV SCH (15:37)
[2024-03-27] MEDS: ZOFRAN INJ 4 MG VIAL IVP PRN ×2 (15:46→17:52)
[2024-03-27] MEDS: MORPHINE SULFATE INJ 2 MG INJ IVP PRN (15:47)
[2024-03-27] MEDS: NS 1,000 ML IV 900 ML IV PRN (17:30)
[2024-03-27] MEDS: NS 1,000 ML IV 1,000 ML ONE (17:40)
[2024-03-27] MEDS ORDERED: ULTANE GAS IN ONE (17:51)
[2024-03-27] MEDS ORDERED: KETAMINE HCL ONE (17:51)
[2024-03-27] MEDS: PEPCID 20 MG VIAL IVP PRN (17:53)
[2024-03-27] MEDS: REGLAN INJ 10 MG VIAL IVP PRN (17:55)
[2024-03-27] MEDS: VERSED IVP PRN (17:56)
[2024-03-27] MEDS: FENTANYL VIAL INJ 100 mcg IVP PRN (18:00)
[2024-03-27] MEDS ORDERED: XYLOCAINE 2 % (PLAIN) PRN (18:01)
[2024-03-27] MEDS: DECADRON INJ IVP PRN (18:04)
[2024-03-27] MEDS: NEO-SYNEPHRINE INJ IVP PRN (18:18)
[2024-03-27] MEDS: ROBINUL IVP PRN (18:21)
[2024-03-27] MEDS: POLYMYXIN B SULFATE ONE (18:28)
[2024-03-27] MEDS: KETAMINE HCL IV PRN (18:36)
[2024-03-27] MEDS: AMIDATE INJ 40 MG VIAL IVP PRN (18:47)
[2024-03-27] MEDS: DIPRIVAN VIAL 200 ML IVP PRN (19:00)
[2024-03-27] MEDS: OFIRMEV IV 1000 MG VIAL 1,000 MG/100 ML VIAL IV PRN (19:20)
[2024-03-27] MEDS: EPHEDRINE SULFATE INJ IVP PRN (19:36)
[2024-03-27] MEDS: ZEMURON 100 MG VIAL IVP PRN (19:49)
[2024-03-27] MEDS ORDERED: ZOFRAN INJ 4 MG VIAL IVP PRN (19:58)
[2024-03-27] MEDS ORDERED: BENADRYL INJ 50 MG VIAL IVP PRN (19:58)
[2024-03-27] MEDS ORDERED: DILAUDID INJ IVP PRN (19:58)
[2024-03-27] MEDS ORDERED: BARHEMSYS INJ IVP PRN (19:58)
[2024-03-27] MEDS ORDERED: NORVASC TAB 10 MG PRN (20:07)
[2024-03-27] MEDS: BRIDION IVP PRN (20:11)
[2024-03-27] MEDS: PRECEDEX INJ VIAL IVP PRN (20:18)
[2024-03-27] MEDS: D5 1/2 NS 1,000 ML 1,000 ML IV SCH (21:21)
[2024-03-27] MEDS: PROTONIX INJ 40 MG VIAL IVP SCH (21:26)
[2024-03-27] MEDS: DILAUDID INJ IVP PRN (21:27)
[2024-03-27] MEDS: NS 250 ML IV 25 ML IV PRN (21:28)
[2024-03-28 05:46] LABS: BASOPHILS # (AUTO) 0.2 X10^3/uL (0.0-0.1); HEMATOCRIT 40.4 % (42.0-54.0); HEMOGLOBIN 13.8 g/dL (13.5-18.0); LYMPHOCYTES # (AUTO) 0.6 X10^3/uL (1.3-2.9); LYMPHOCYTES % (AUTO) 2.9 % (21.0-51.0); MEAN CORPUSCULAR HGB CONC 34.1 g/dL (33.0-35.0); MEAN CORPUSCULAR VOLUME 90.8 fL (80.0-100.0); MEAN PLATELET VOLUME 9.2 fL (7.4-11.0); MONOCYTES # (AUTO) 2.2 x10^3/uL (0.3-0.8); MONOCYTES % (AUTO) 10.4 % (0.0-13.0); NEUTROPHILS # (AUTO) 17.9 x10^3/uL (2.2-4.8); NEUTROPHILS % (AUTO) 85.7 % (42.0-75.0); PLATELET COUNT 166 X10^3/uL (150.0-450.0); RED BLOOD COUNT 4.45 X10^6/uL (4.7-6.0); RED CELL DISTRIBUTION WIDTH 15.4 % (11.6-16.5); WHITE BLOOD COUNT 20.9 X10^3/uL (3.6-10.0)
[2024-03-28 06:05] LABS: ALANINE AMINOTRANSFERASE 17 Units/L (12-78); ALBUMIN 2.5 g/dL (3.4-5.0); ALKALINE PHOSPHATASE 62 Units/L (46-116); ASPARTATE AMINO TRANSFERASE 22 Units/L (15-37); BLOOD UREA NITROGEN 28 mg/dL (7-18); CALCIUM 8.3 mg/dL (8.5-10.1); CARBON DIOXIDE 26.4 mmol/L (21-32); CHLORIDE 104 mmol/L (98-107); COR CA(FOR HYPOALB) 9.5 mg/dL (8.5-10.1); COR NA(FOR HYPERGLY) 138 mmol/L (136-145); CREATININE 1.02 mg/dL (0.70-1.30); GLUCOSE 168 mg/dL (65-99); POTASSIUM 4.4 mmol/L (3.5-5.1); SODIUM 136 mmol/L (136-145); TOTAL PROTEIN 5.4 g/dL (6.4-8.2); eGFR NON BLACK RACES > 60 (>60)
[2024-03-28] MEDS: FENTANYL VIAL INJ 100 mcg ONE (07:28)
[2024-03-28] MEDS: EPHEDRINE SULFATE INJ ONE (07:29)
[2024-03-28] MEDS: BRIDION ONE (07:29)
[2024-03-28] MEDS: VERSED ONE (07:29)
[2024-03-28] MEDS: XYLOCAINE 2 % (PLAIN) ONE (07:29)
[2024-03-28] MEDS: PEPCID 20 MG VIAL ONE (07:29)
[2024-03-28] MEDS: DECADRON INJ ONE (07:29)
[2024-03-28] MEDS: OFIRMEV IV 1000 MG VIAL 1,000 MG/100 ML VIAL IV ONE (07:30)
[2024-03-28] MEDS: AMIDATE INJ 40 MG VIAL ONE (07:30)
[2024-03-28] MEDS: ROBINUL ONE (07:30)
[2024-03-28] MEDS: REGLAN INJ 10 MG VIAL ONE (07:30)
[2024-03-28] MEDS: PRECEDEX INJ VIAL ONE (07:30)
[2024-03-28] MEDS: DIPRIVAN VIAL 20 ML ONE (07:30)
[2024-03-28] MEDS: VASOSTRICT INJ 20 UNITS VIAL ONE (07:31)
[2024-03-28] MEDS: HESPAN IV IN NS 500 ML IV ONE (07:31)
[2024-03-28] MEDS: ZOFRAN INJ 4 MG VIAL ONE (07:31)
[2024-03-28] MEDS: NEO-SYNEPHRINE INJ ONE (07:31)
[2024-03-28] MEDS: MARCAINE 0.5% ONE (07:32)
[2024-03-28] MEDS: ZEMURON 100 MG VIAL ONE (07:32)
[2024-03-28] MEDS: LOVENOX INJ 40 MG SYR SC SCH (08:19)
--- NOTE | 2024-03-28 10:48 | DR.H&P ---
H&P History & Physical for Day of: H&P Date: 03/28/24 Chief Complaint Chief Complaint: hernia History of Present Illness History of Present Illness: Patient presented to the ER yesterday after feeling a pop in his abdomen that continued to hurt. He noticed a protrusion in the abdominal wall. ER workup consistent with incarcerated hernia due to small bowel. Underwent surgical release yesterday. Did have partial small bowel resection. Slept well overnight. Just reports a sore belly this morning. Son stayed with him overnight. White count did jump up overnight to 20,000. Also noted A-fib on EKG but sinus rhythm during surgery. Sinus rhythm on telemetry today. PMH: BPH. ROS: 12 point ROS negative except as noted in HPI. PE: Well-developed, well-nourished, elderly male in no acute distress. Head NCAT. Hearing intact conversation. EOMI. Heart regular rate and rhythm with no murmur appreciated. Lungs are clear today with shallow respirations. Belly is soft with bowel sounds present, clean and dry dressing from midline surgical incision. Mood and affect are appropriate for current situation. He is alert. Past Medical History Past Medical History: Arthritis Past Surgical History Surgical History: Appendectomy, Cholecystectomy and Joint Replacement Additional Surgical History: HERNIA REPAIR Social History Does patient currently use any type of tobacco product: No Type of Tobacco Use: None Does any household member use tobacco: No Alcohol Use: None Drug Use: None Medications Home Medications: Home Medications Medication Instructions Recorded Confirmed Type tamsulosin 0.4 mg capsule (Flomax) 0.4 mg PO DAILY 02/23/20 03/27/24 History finasteride 5 mg tablet 5 mg PO DAILY 03/27/24 03/27/24 History Allergies Allergies Allergy/AdvReac Type Severity Reaction Status Date / Time No Known Drug Allergies Allergy Verified 08/18/20 08:17 Labs 03/28/24 05:29 03/28/24 05:29 Labs: 03/27/24 18:36 Peritoneal Fluid Wound Gram Stain - Final Laboratory WBC 20.9 X10^3/uL (3.6-10.0) H D 03/28/24 05:29 RBC 4.45 X10^6/uL (4.7-6.0) L 03/28/24 05:29 Hgb 13.8 g/dL (13.5-18.0) 03/28/24 05:29 Hct 40.4 % (42.0-54.0) L 03/28/24 05:29 MCV 90.8 fL (80.0-100.0) 03/28/24 05: MCH 31.0 pg (27.0-34.0) 03/28/24 05: MCHC 34.1 g/dL (33.0-35.0) 03/28/24 05: RDW 15.4 % (11.6-16.5) 03/28/24 05:29 Plt Count 166 X10^3/uL (150.0-450.0) 03/28/24 05: MPV 9.2 fL (7.4-11.0) 03/28/24 05: Neut % (Auto) 85.7 % (42.0-75.0) H 03/28/24 05: Lymph % (Auto) 2.9 % (21.0-51.0) L 03/28/24 05:29 [place] % (Auto) 10.4 % (0.0-13.0) 03/28/24 05: Eos % (Auto) 0.0 % (0.9-2.9) L 03/28/24 05: Baso % (Auto) 1.0 % (0.2-1.0) 03/28/24 05: Neut # (Auto) 17.9 x10^3/uL (2.2-4.8) H 03/28/24 05:29 Lymph # (Auto) 0.6 X10^3/uL (1.3-2.9) L 03/28/24 05:29 [place] # (Auto) 2.2 x10^3/uL (0.3-0.8) H 03/28/24 05:29 Eos # (Auto) 0.0 x10^3/uL (0.0-0.2) 03/28/24 05:29 Baso # (Auto) 0.2 X10^3/uL (0.0-0.1) H 03/28/24 05:29 Absolute Nucleated RBC 0.0 /100WBC 03/28/24 05:29 Sodium 136 mmol/L (136-145) 03/28/24 05:29 Corrected Sodium 138 mmol/L (136-145) 03/28/24 05:29 Potassium 4.4 mmol/L (3.5-5.1) 03/28/24 05:29 Chloride 104 mmol/L (98-107) 03/28/24 05:29 Carbon Dioxide 26.4 mmol/L (21-32) 03/28/24 05:29 BUN 28 mg/dL (7-18) H 03/28/24 05:29 Creatinine 1.02 mg/dL (0.70-1.30) 03/28/24 05:29 Est GFR (MDRD) Af Amer > 60 (>60) 03/28/24 05:29 Est GFR (MDRD) Non-Af > 60 (>60) 03/28/24 05:29 Glucose 168 mg/dL (65-99) H 03/28/24 05:29 Calcium 8.3 mg/dL (8.5-10.1) L 03/28/24 05:29 Corrected Calcium 9.5 mg/dL (8.5-10.1) 03/28/24 05:29 Total Bilirubin 1.10 mg/dL (0.2-1.0) H 03/28/24 05:29 AST 22 Units/L (15-37) 03/28/24 05:29 ALT 17 Units/L (12-78) 03/28/24 05:29 Alkaline Phosphatase 62 Units/L (46-116) 03/28/24 05:29 Total Protein 5.4 g/dL (6.4-8.2) L 03/28/24 05:29 Albumin 2.5 g/dL (3.4-5.0) L 03/28/24 05:29 Globulin 2.9 g/dL (2.5-4.5) 03/28/24 05:29 Albumin/Globulin Ratio 0.9 Ratio (1.1-2.1) L 03/28/24 05:29 Specimen Type Clean catch urine 03/27/24 12:08 Urine Color Yellow (YELLOW) 03/27/24 12:08 Urine Appearance Slightly hazy (CLEAR) 03/27/24 12:08 Urine pH 6.0 (5.0 - 8.0) 03/27/24 12:08 Ur Specific [place] 1.020 (1.000-1.030) 03/27/24 12:08 Urine Protein 2+ (NEGATIVE) 03/27/24 12:08 Urine Glucose (UA) Negative (NEGATIVE) 03/27/24 12:08 Urine Ketones 1+ (NEGATIVE) 03/27/24 12:08 Urine Blood 2+ (NEGATIVE) 03/27/24 12:08 Urine Nitrite Negative (NEGATIVE) 03/27/24 12:08 Urine Bilirubin Negative (NEGATIVE) 03/27/24 12:08 Urine Urobilinogen Normal (NORMAL) 03/27/24 12:08 Ur Leukocyte Esterase 1+ (NEGATIVE) 03/27/24 12:08 Urine RBC 5-10 /HPF (0-3) A 03/27/24 12:08 Urine WBC Tntc /HPF (0-5) A 03/27/24 12:08 Ur Squamous Epith Cells Rare /HPF (NEGATIVE) 03/27/24 12:08 Urine Bacteria Trace /HPF (NEGATIVE) 03/27/24 12:08 Ur Culture Indicated? Yes/culture set up 03/27/24 12:08 Physical Exam Vital Signs: Vital Signs Temperature 97.9 F Temperature 98 F Temperature 98.2 F Pulse Rate [Right Brachial] 86 Pulse Rate [Right Brachial] 78 Pulse Rate [Right Brachial] 86 Respiratory Rate 20 Respiratory Rate 18 Respiratory Rate 18 Respiratory Rate 22 Respiratory Rate 19 Blood Pressure [Left Arm] 118/62 Blood Pressure [Left Arm] 99/57 Blood Pressure [Left Arm] 107/63 O2 Sat by Pulse Oximetry 99 O2 Sat by Pulse Oximetry 98 O2 Sat by Pulse Oximetry 99 Assessment/Plan (1) Incarcerated hernia: Narrative Support Text: Per surgery. POD 1 from hernia repair and small bowel resection. Status: Acute (2) Paroxysmal atrial fibrillation: Narrative Support Text: Monitor for now. Will will continue Lovenox for now. Status: Acute (3) BPH (benign prostatic hyperplasia): Qualifiers: Lower urinary tract symptom presence: symptoms present Lower urinary tract symptom detail: post-void dribbling Qualified Code(s): N40.1 - Benign prostatic hyperplasia with lower urinary tract symptoms; N39.43 - Post-void dribbling Narrative Support Text: Hold home meds. Status: Acute
[2024-03-28] MEDS ORDERED: TYLENOL 325 MG TAB PO PRN (13:51)
[2024-03-28] MEDS ORDERED: ULTRAM PO PRN (13:51)
[2024-03-28] MEDS ORDERED: MYLICON TAB 80 MG CHEW PO PRN (13:51)
[2024-03-28] MEDS: TORADOL 30 MG VIAL IVP PRN (15:11)
[2024-03-29 05:28] LABS: BASOPHILS % (AUTO) 0.2 % (0.2-1.0); HEMATOCRIT 39.6 % (42.0-54.0); HEMOGLOBIN 13.4 g/dL (13.5-18.0); LYMPHOCYTES % (AUTO) 3.7 % (21.0-51.0); MEAN CORPUSCULAR HEMOGLOBIN 30.7 pg (27.0-34.0); MEAN CORPUSCULAR HGB CONC 33.7 g/dL (33.0-35.0); MEAN PLATELET VOLUME 9.7 fL (7.4-11.0); MONOCYTES # (AUTO) 3.1 x10^3/uL (0.3-0.8); NEUTROPHILS # (AUTO) 21.8 x10^3/uL (2.2-4.8); NEUTROPHILS % (AUTO) 84.1 % (42.0-75.0); PLATELET COUNT 171 X10^3/uL (150.0-450.0); RED BLOOD COUNT 4.36 X10^6/uL (4.7-6.0); RED CELL DISTRIBUTION WIDTH 15.7 % (11.6-16.5); WHITE BLOOD COUNT 25.9 X10^3/uL (3.6-10.0)
[2024-03-29 05:46] LABS: ALBUMIN 2.1 g/dL (3.4-5.0); CALCIUM 8.6 mg/dL (8.5-10.1); CARBON DIOXIDE 24.7 mmol/L (21-32); COR CA(FOR HYPOALB) 10.1 mg/dL (8.5-10.1); CREATININE 1.96 mg/dL (0.70-1.30); POTASSIUM 4.2 mmol/L (3.5-5.1); TOTAL PROTEIN 5.1 g/dL (6.4-8.2)
[2024-03-29 07:41] LABS: PLATELET MORPHOLOGY COMMENT NORMAL (NORMAL)
[2024-03-29] MEDS: NORCO 5/325 MG TAB PO PRN (09:11)
--- NOTE | 2024-03-29 09:43 | DR.PROGNOT ---
HOSPITAL PROGRESS NOTE Progress Note for Day of: Progress Note Date: 03/29/24 Chief Complaint Chief Complaint: moderate abdominal pain.. no nausea or vomiting . WBC 25,9 .. BUN 49 ,Creat 1.9 urine culture Staph heamolitic sensitive t Cipro . soft abdomen , BS+ Past Medical Family Social History Allergies: Allergies No Known Drug Allergies Allergy (Verified 08/18/20 08:17) Vital Signs Vital Signs: Vital Signs Temperature 98.8 F Temperature 97.5 F Pulse Rate [Right Brachial] 95 Pulse Rate [Right Brachial] 92 Respiratory Rate 18 Respiratory Rate 18 Respiratory Rate 16 Respiratory Rate 17 Respiratory Rate 16 Blood Pressure [Left Arm] 121/70 Blood Pressure [Left Arm] 107/69 O2 Sat by Pulse Oximetry 94 O2 Sat by Pulse Oximetry 94 Physical Exam Oriented: Normal Eyes: Normal Ear: Normal Nose: Normal Throat: Normal Respiratory: Normal Cardiovascular: Normal : Normal GI:Auscultation: Normal GI: Tenderness: Diffuse and Moderate Mood Description: Calm Speech Pattern: Clear and Appropriate Laboratory and Diagnostics 03/29/24 05:03 03/29/24 05:03 Labs: 03/27/24 18:36 Peritoneal Fluid Wound Gram Stain - Final 03/27/24 18:36 Peritoneal Fluid Wound Culture - Preliminary 03/27/24 12:08 Urine,Clean Catch Urine Culture - Final Staphylococcus Haemolyticus Laboratory WBC 25.9 X10^3/uL (3.6-10.0) H 03/29/24 05:03 RBC 4.36 X10^6/uL (4.7-6.0) L 03/29/24 05:03 Hgb 13.4 g/dL (13.5-18.0) L 03/29/24 05:03 Hct 39.6 % (42.0-54.0) L 03/29/24 05:03 MCV 91.0 fL (80.0-100.0) 03/29/24 05:03 MCH 30.7 pg (27.0-34.0) 03/29/24 05:03 MCHC 33.7 g/dL (33.0-35.0) 03/29/24 05:03 RDW 15.7 % (11.6-16.5) 03/29/24 05:03 Plt Count 171 X10^3/uL (150.0-450.0) 03/29/24 05:03 Plt Count Comment Adequate (ADEQUATE) 03/29/24 05:03 MPV 9.7 fL (7.4-11.0) 03/29/24 05:03 Neut % (Auto) 84.1 % (42.0-75.0) H 03/29/24 05:03 Lymph % (Auto) 3.7 % (21.0-51.0) L 03/29/24 05:03 [place] % (Auto) 12.0 % (0.0-13.0) 03/29/24 05:03 Eos % (Auto) 0.0 % (0.9-2.9) L 03/29/24 05:03 Baso % (Auto) 0.2 % (0.2-1.0) 03/29/24 05:03 Neut # (Auto) 21.8 x10^3/uL (2.2-4.8) H 03/29/24 05:03 Lymph # (Auto) 1.0 X10^3/uL (1.3-2.9) L 03/29/24 05:03 [place] # (Auto) 3.1 x10^3/uL (0.3-0.8) H 03/29/24 05:03 Eos # (Auto) 0.0 x10^3/uL (0.0-0.2) 03/29/24 05:03 Baso # (Auto) 0.0 X10^3/uL (0.0-0.1) 03/29/24 05:03 Absolute Nucleated RBC 0.0 /100WBC 03/29/24 05:03 Total Counted 100 03/29/24 05:03 Neutrophils % (Manual) 84 % (39-76) H 03/29/24 05:03 Lymphocytes % (Manual) 4 % (13-43) L 03/29/24 05:03 Monocytes % (Manual) 12 % (4-9) H 03/29/24 05:03 Plt Morphology Comment Normal (NORMAL) 03/29/24 05:03 RBC Morphology Normal (NORMAL) 03/29/24 05:03 Sodium 139 mmol/L (136-145) 03/29/24 05:03 Corrected Sodium 140 mmol/L (136-145) 03/29/24 05:03 Potassium 4.2 mmol/L (3.5-5.1) 03/29/24 05:03 Chloride 107 mmol/L (98-107) 03/29/24 05:03 Carbon Dioxide 24.7 mmol/L (21-32) 03/29/24 05:03 BUN 49 mg/dL (7-18) H 03/29/24 05:03 Creatinine 1.96 mg/dL (0.70-1.30) H 03/29/24 05:03 Est GFR (MDRD) Af Amer 42 (>60) L 03/29/24 05:03 Est GFR (MDRD) Non-Af 35 (>60) L 03/29/24 05:03 Glucose 132 mg/dL (65-99) H 03/29/24 05:03 Lactic Acid 0.7 mmol/L (0.4-2.0) 03/28/24 08:50 Calcium 8.6 mg/dL (8.5-10.1) 03/29/24 05:03 Corrected Calcium 10.1 mg/dL (8.5-10.1) 03/29/24 05:03 Total Bilirubin 1.20 mg/dL (0.2-1.0) H 03/29/24 05:03 AST 18 Units/L (15-37) 03/29/24 05:03 ALT 14 Units/L (12-78) 03/29/24 05:03 Alkaline Phosphatase 55 Units/L (46-116) 03/29/24 05:03 Total Protein 5.1 g/dL (6.4-8.2) L 03/29/24 05:03 Albumin 2.1 g/dL (3.4-5.0) L 03/29/24 05:03 Globulin 3.0 g/dL (2.5-4.5) 03/29/24 05:03 Albumin/Globulin Ratio 0.7 Ratio (1.1-2.1) L 03/29/24 05:03 Specimen Type Clean catch urine 03/27/24 12:08 Urine Color Yellow (YELLOW) 03/27/24 12:08 Urine Appearance Slightly hazy (CLEAR) 03/27/24 12:08 Urine pH 6.0 (5.0 - 8.0) 03/27/24 12:08 Ur Specific [place] 1.020 (1.000-1.030) 03/27/24 12:08 Urine Protein 2+ (NEGATIVE) 03/27/24 12:08 Urine Glucose (UA) Negative (NEGATIVE) 03/27/24 12:08 Urine Ketones 1+ (NEGATIVE) 03/27/24 12:08 Urine Blood 2+ (NEGATIVE) 03/27/24 12:08 Urine Nitrite Negative (NEGATIVE) 03/27/24 12:08 Urine Bilirubin Negative (NEGATIVE) 03/27/24 12:08 Urine Urobilinogen Normal (NORMAL) 03/27/24 12:08 Ur Leukocyte Esterase 1+ (NEGATIVE) 03/27/24 12:08 Urine RBC 5-10 /HPF (0-3) A 03/27/24 12:08 Urine WBC Tntc /HPF (0-5) A 03/27/24 12:08 Ur Squamous Epith Cells Rare /HPF (NEGATIVE) 03/27/24 12:08 Urine Bacteria Trace /HPF (NEGATIVE) 03/27/24 12:08 Ur Culture Indicated? Yes/culture set up 03/27/24 12:08 Assessment and Plan 1: PO small bowel resection . repair incarcerated umbilical hernia day 2 . dehydration . same IV ABT , OOB . clear liquid . bladder training . Problem Patient Problems: Patient Problems Abdominal hernia (Acute) K46.9
[2024-03-29] MEDS: CIPRO IV 400 MG PREMIX* 400 MG/200 ML IV.SOLN. IV SCH (11:06)
[2024-03-29] MEDS: NS 1,000 ML IV 1,000 ML IV ONE (12:35)
[2024-03-29] MEDS: FLAGYL IV PREMIX 500 MG BAG 500 MG/100 ML BAG IV SCH (12:36)
[2024-03-30 05:52] LABS: BASOPHILS % (AUTO) 0.1 % (0.2-1.0); HEMOGLOBIN 11.2 g/dL (13.5-18.0); LYMPHOCYTES # (AUTO) 1.1 X10^3/uL (1.3-2.9); MEAN CORPUSCULAR VOLUME 91.1 fL (80.0-100.0); MEAN PLATELET VOLUME 9.5 fL (7.4-11.0); MONOCYTES # (AUTO) 2.4 x10^3/uL (0.3-0.8); MONOCYTES % (AUTO) 11.3 % (0.0-13.0); NEUTROPHILS # (AUTO) 17.8 x10^3/uL (2.2-4.8); NEUTROPHILS % (AUTO) 83.6 % (42.0-75.0); PLATELET COUNT 134 X10^3/uL (150.0-450.0); RED BLOOD COUNT 3.62 X10^6/uL (4.7-6.0); RED CELL DISTRIBUTION WIDTH 15.6 % (11.6-16.5); WHITE BLOOD COUNT 21.3 X10^3/uL (3.6-10.0)
[2024-03-30 06:04] LABS: ALBUMIN 1.8 g/dL (3.4-5.0); CALCIUM 8.9 mg/dL (8.5-10.1); CARBON DIOXIDE 24.6 mmol/L (21-32); COR CA(FOR HYPOALB) 10.7 mg/dL (8.5-10.1); CREATININE 1.85 mg/dL (0.70-1.30); POTASSIUM 3.7 mmol/L (3.5-5.1); TOTAL PROTEIN 4.7 g/dL (6.4-8.2)
[2024-03-30 06:47] LABS: PLATELET MORPHOLOGY COMMENT NORMAL (NORMAL)
[2024-03-30] MEDS: MAG-OX TAB PO SCH (08:37)
[2024-03-30] MEDS: K-DUR TAB 20 MEQ PO SCH (08:37)
[2024-03-30] MEDS: PROSCAR PO SCH (08:53)
[2024-03-30] MEDS: FLOMAX PO SCH (08:53)
[2024-03-30] MEDS: FLOMAX ONE (09:57)
[2024-03-30] MEDS: PROSCAR ONE (09:58)
[2024-03-30] MEDS: CONSULT PHARMACY - POTASSIUM & MAGNESIUM XX SCH (09:58)
[2024-03-30] MEDS: NS 1,000 ML IV 1,000 ML IV SCH (10:35)
[2024-03-30] MEDS: NS 1,000 ML IV 1,000 ML IV ONE (10:35)
--- NOTE | 2024-03-30 10:44 | DR.PROGNOT ---
HOSPITAL PROGRESS NOTE Progress Note for Day of: Progress Note Date: 03/30/24 Chief Complaint Chief Complaint: moderate abdominal pain.. no nausea or vomiting . WBC 21.3 .. BUN 58,Creat 1.8 urine culture Staph heamolitic sensitive to Cipro . soft abdomen , BS+ Past Medical Family Social History Allergies: Allergies No Known Drug Allergies Allergy (Verified 08/18/20 08:17) Vital Signs Vital Signs: Vital Signs Temperature 98.3 F Temperature 97.6 F Pulse Rate [Right Brachial] 94 Pulse Rate [Right Brachial] 88 Respiratory Rate 18 Respiratory Rate 16 Blood Pressure [Left Arm] 164/72 Blood Pressure [Left Arm] 131/61 O2 Sat by Pulse Oximetry 94 O2 Sat by Pulse Oximetry 96 Physical Exam Oriented: Normal Eyes: Normal Ear: Normal Nose: Normal Throat: Normal Respiratory: Normal Cardiovascular: Normal : Normal GI:Auscultation: Normal GI: Tenderness: Diffuse and Moderate Mood Description: Calm Speech Pattern: Clear and Appropriate Laboratory and Diagnostics 03/30/24 05:08 03/30/24 05:08 Labs: 03/27/24 18:36 Peritoneal Fluid Wound Gram Stain - Final 03/27/24 18:36 Peritoneal Fluid Wound Culture - Preliminary 03/27/24 12:08 Urine,Clean Catch Urine Culture - Final Staphylococcus Haemolyticus Laboratory WBC 21.3 X10^3/uL (3.6-10.0) H 03/30/24 05:08 RBC 3.62 X10^6/uL (4.7-6.0) L 03/30/24 05:08 Hgb 11.2 g/dL (13.5-18.0) L D 03/30/24 05:08 Hct 33.0 % (42.0-54.0) L 03/30/24 05:08 MCV 91.1 fL (80.0-100.0) 03/30/24 05:08 MCH 31.0 pg (27.0-34.0) 03/30/24 05:08 MCHC 34.0 g/dL (33.0-35.0) 03/30/24 05:08 RDW 15.6 % (11.6-16.5) 03/30/24 05:08 Plt Count 134 X10^3/uL (150.0-450.0) L 03/30/24 05:08 Plt Count Comment Decreased (ADEQUATE) 03/30/24 05:08 MPV 9.5 fL (7.4-11.0) 03/30/24 05:08 Neut % (Auto) 83.6 % (42.0-75.0) H 03/30/24 05:08 Lymph % (Auto) 5.0 % (21.0-51.0) L 03/30/24 05:08 [place] % (Auto) 11.3 % (0.0-13.0) 03/30/24 05:08 Eos % (Auto) 0.0 % (0.9-2.9) L 03/30/24 05:08 Baso % (Auto) 0.1 % (0.2-1.0) L 03/30/24 05:08 Neut # (Auto) 17.8 x10^3/uL (2.2-4.8) H 03/30/24 05:08 Lymph # (Auto) 1.1 X10^3/uL (1.3-2.9) L 03/30/24 05:08 [place] # (Auto) 2.4 x10^3/uL (0.3-0.8) H 03/30/24 05:08 Eos # (Auto) 0.0 x10^3/uL (0.0-0.2) 03/30/24 05:08 Baso # (Auto) 0.0 X10^3/uL (0.0-0.1) 03/30/24 05:08 Absolute Nucleated RBC 0.0 /100WBC 03/30/24 05:08 Total Counted 100 03/30/24 05:08 Neutrophils % (Manual) 84 % (39-76) H 03/30/24 05:08 Lymphocytes % (Manual) 6 % (13-43) L 03/30/24 05:08 Monocytes % (Manual) 10 % (4-9) H 03/30/24 05:08 Plt Morphology Comment Normal (NORMAL) 03/30/24 05:08 RBC Morphology Normal (NORMAL) 03/30/24 05:08 Sodium 136 mmol/L (136-145) 03/30/24 05:08 Corrected Sodium 136 mmol/L (136-145) 03/30/24 05:08 Potassium 3.7 mmol/L (3.5-5.1) 03/30/24 05:08 Chloride 105 mmol/L (98-107) 03/30/24 05:08 Carbon Dioxide 24.6 mmol/L (21-32) 03/30/24 05:08 BUN 58 mg/dL (7-18) H 03/30/24 05:08 Creatinine 1.85 mg/dL (0.70-1.30) H 03/30/24 05:08 Est GFR (MDRD) Af Amer 45 (>60) L 03/30/24 05:08 Est GFR (MDRD) Non-Af 37 (>60) L 03/30/24 05:08 Glucose 119 mg/dL (65-99) H 03/30/24 05:08 Lactic Acid 0.7 mmol/L (0.4-2.0) 03/28/24 08:50 Calcium 8.9 mg/dL (8.5-10.1) 03/30/24 05:08 Corrected Calcium 10.7 mg/dL (8.5-10.1) H 03/30/24 05:08 Magnesium 1.8 mg/dL (2.0-2.9) L 03/30/24 05:08 Total Bilirubin 0.90 mg/dL (0.2-1.0) 03/30/24 05:08 AST 12 Units/L (15-37) L 03/30/24 05:08 ALT 11 Units/L (12-78) L 03/30/24 05:08 Alkaline Phosphatase 79 Units/L (46-116) 03/30/24 05:08 Total Protein 4.7 g/dL (6.4-8.2) L 03/30/24 05:08 Albumin 1.8 g/dL (3.4-5.0) L 03/30/24 05:08 Globulin 2.9 g/dL (2.5-4.5) 03/30/24 05:08 Albumin/Globulin Ratio 0.6 Ratio (1.1-2.1) L 03/30/24 05:08 Specimen Type Clean catch urine 03/27/24 12:08 Urine Color Yellow (YELLOW) 03/27/24 12:08 Urine Appearance Slightly hazy (CLEAR) 03/27/24 12:08 Urine pH 6.0 (5.0 - 8.0) 03/27/24 12:08 Ur Specific [place] 1.020 (1.000-1.030) 03/27/24 12:08 Urine Protein 2+ (NEGATIVE) 03/27/24 12:08 Urine Glucose (UA) Negative (NEGATIVE) 03/27/24 12:08 Urine Ketones 1+ (NEGATIVE) 03/27/24 12:08 Urine Blood 2+ (NEGATIVE) 03/27/24 12:08 Urine Nitrite Negative (NEGATIVE) 03/27/24 12:08 Urine Bilirubin Negative (NEGATIVE) 03/27/24 12:08 Urine Urobilinogen Normal (NORMAL) 03/27/24 12:08 Ur Leukocyte Esterase 1+ (NEGATIVE) 03/27/24 12:08 Urine RBC 5-10 /HPF (0-3) A 03/27/24 12:08 Urine WBC Tntc /HPF (0-5) A 03/27/24 12:08 Ur Squamous Epith Cells Rare /HPF (NEGATIVE) 03/27/24 12:08 Urine Bacteria Trace /HPF (NEGATIVE) 03/27/24 12:08 Ur Culture Indicated? Yes/culture set up 03/27/24 12:08 Assessment and Plan 1: PO small bowel resection . repair incarcerated umbilical hernia day 3 . dehydration . same IV ABT , OOB . soft diet .. Problem Patient Problems: Patient Problems Abdominal hernia (Acute) K46.9
[2024-03-30] MEDS ORDERED: LOPRESSOR INJ 5 MG AMP ONE (16:25)
[2024-03-30] MEDS: LOPRESSOR INJ 5 MG AMP IVP ONE ×3 (16:34→17:42)
--- NOTE | 2024-03-30 16:40 | EKG ---
Test Reason : > hr Blood Pressure : */* mmHG Vent. Rate : 112 BPM Atrial Rate : * BPM P-R Int : * ms QRS Dur : 98 ms QT Int : 322 ms P-R-T Axes : * -39 48 degrees QTc Int : 439 ms Atrial fibrillation with rapid ventricular response Left axis deviation Minimal voltage criteria for LVH, may be normal variant ( R in aVL ) Abnormal ECG When compared with ECG of 27-MAR-2024 14:38, Vent. rate has increased BY 45 BPM Non-specific change in ST segment in Lateral leads Confirmed by Luis A Slater MD ([id number]) on 03/31/2024 7:43:24 AM Referred By: Confirmed By: Luis A Slater MD
[2024-03-30] MEDS: TOPROL XL PO SCH (18:01)
[2024-03-30] MEDS: TOPROL XL PO ONE (18:09)
[2024-03-30] MEDS: COLACE CAP 100 MG PO SCH (20:15)
[2024-03-30] MEDS: MIRALAX POWDER (1 DOSE 17 G) PO SCH (20:16)
[2024-03-30] MEDS: LOVENOX INJ 40 MG SYR SC SCH (20:16)
[2024-03-31] MEDS ORDERED: TOPROL XL PO ONE ×2 (05:13→21:06)
[2024-03-31 05:17] LABS: BASOPHILS % (AUTO) 0.1 % (0.2-1.0); EOSINOPHILS % (AUTO) 0.3 % (0.9-2.9); HEMATOCRIT 36.6 % (42.0-54.0); HEMOGLOBIN 12.4 g/dL (13.5-18.0); LYMPHOCYTES # (AUTO) 1.4 X10^3/uL (1.3-2.9); LYMPHOCYTES % (AUTO) 9.8 % (21.0-51.0); MEAN CORPUSCULAR HEMOGLOBIN 30.9 pg (27.0-34.0); MEAN CORPUSCULAR HGB CONC 33.8 g/dL (33.0-35.0); MEAN CORPUSCULAR VOLUME 91.4 fL (80.0-100.0); MEAN PLATELET VOLUME 9.9 fL (7.4-11.0); MONOCYTES # (AUTO) 1.7 x10^3/uL (0.3-0.8); MONOCYTES % (AUTO) 11.7 % (0.0-13.0); NEUTROPHILS # (AUTO) 11.5 x10^3/uL (2.2-4.8); NEUTROPHILS % (AUTO) 78.1 % (42.0-75.0); PLATELET COUNT 201 X10^3/uL (150.0-450.0); RED CELL DISTRIBUTION WIDTH 16.1 % (11.6-16.5); WHITE BLOOD COUNT 14.7 X10^3/uL (3.6-10.0)
[2024-03-31 05:25] LABS: ALANINE AMINOTRANSFERASE 12 Units/L (12-78); ALBUMIN 1.9 g/dL (3.4-5.0); ALKALINE PHOSPHATASE 61 Units/L (46-116); ASPARTATE AMINO TRANSFERASE 9 Units/L (15-37); BLOOD UREA NITROGEN 37 mg/dL (7-18); CALCIUM 8.7 mg/dL (8.5-10.1); CARBON DIOXIDE 25.8 mmol/L (21-32); CHLORIDE 107 mmol/L (98-107); COR CA(FOR HYPOALB) 10.4 mg/dL (8.5-10.1); COR NA(FOR HYPERGLY) 139 mmol/L (136-145); CREATININE 1.19 mg/dL (0.70-1.30); GLUCOSE 115 mg/dL (65-99); MAGNESIUM 1.9 mg/dL (2.0-2.9); POTASSIUM 3.3 mmol/L (3.5-5.1); SODIUM 139 mmol/L (136-145); TOTAL PROTEIN 5.3 g/dL (6.4-8.2); eGFR NON BLACK RACES > 60 (>60)
--- NOTE | 2024-03-31 05:27 | EKG ---
Test Reason : tachycardia Blood Pressure : */* mmHG Vent. Rate : 130 BPM Atrial Rate : 130 BPM P-R Int : 224 ms QRS Dur : 96 ms QT Int : 312 ms P-R-T Axes : * -48 80 degrees QTc Int : 459 ms Atrial fibrillation Left anterior fascicular block Nonspecific ST abnormality Abnormal ECG When compared with ECG of 30-MAR-2024 16:18, (Unconfirmed) High HR Confirmed by Luis A Slater MD ([id number]) on 03/31/2024 7:41:05 AM Referred By: Confirmed By: Luis A Slater MD
[2024-03-31] MEDS ORDERED: CONSULT PHARMACY - POTASSIUM & MAGNESIUM XX SCH (07:00)
--- NOTE | 2024-03-31 07:48 | DR.PROGNOT ---
HOSPITAL PROGRESS NOTE Progress Note for Day of: Progress Note Date: 03/31/24 Chief Complaint Chief Complaint: mild abdominal pain.. no nausea or vomiting . had normal . had episodes of tachycardia and A Fib WBC 14.7 .. BUN 37,Creat 1.1 urine culture Staph heamolitic sensitive to Cipro . soft abdomen , BS+ no wound infection . Past Medical Family Social History Allergies: Allergies No Known Drug Allergies Allergy (Verified 08/18/20 08:17) Vital Signs Vital Signs: Vital Signs Temperature 97.6 F Temperature 97.6 F Pulse Rate [Right Brachial] 111 Pulse Rate [Right Brachial] 111 Respiratory Rate 18 Respiratory Rate 18 Blood Pressure [Left Arm] 154/80 Blood Pressure [Left Arm] 129/70 O2 Sat by Pulse Oximetry 97 O2 Sat by Pulse Oximetry 98 Physical Exam Oriented: Normal Eyes: Normal Ear: Normal Nose: Normal Throat: Normal Respiratory: Normal Cardiovascular: Normal : Normal GI:Auscultation: Normal GI: Tenderness: Diffuse and Moderate Mood Description: Calm Speech Pattern: Clear and Appropriate Laboratory and Diagnostics 03/31/24 04:30 03/31/24 04:30 Labs: 03/28/24 08:50 Blood Blood Culture - Preliminary 03/27/24 18:36 Peritoneal Fluid Wound Gram Stain - Final 03/27/24 18:36 Peritoneal Fluid Wound Culture - Preliminary 03/27/24 12:08 Urine,Clean Catch Urine Culture - Final Staphylococcus Haemolyticus Laboratory WBC 14.7 X10^3/uL (3.6-10.0) H 03/31/24 04:30 RBC 4.00 X10^6/uL (4.7-6.0) L 03/31/24 04:30 Hgb 12.4 g/dL (13.5-18.0) L 03/31/24 04:30 Hct 36.6 % (42.0-54.0) L 03/31/24 04:30 MCV 91.4 fL (80.0-100.0) 03/31/24 04:30 MCH 30.9 pg (27.0-34.0) 03/31/24 04:30 MCHC 33.8 g/dL (33.0-35.0) 03/31/24 04:30 RDW 16.1 % (11.6-16.5) 03/31/24 04:30 Plt Count 201 X10^3/uL (150.0-450.0) 03/31/24 04:30 Plt Count Comment Decreased (ADEQUATE) 03/30/24 05:08 MPV 9.9 fL (7.4-11.0) 03/31/24 04:30 Neut % (Auto) 78.1 % (42.0-75.0) H 03/31/24 04:30 Lymph % (Auto) 9.8 % (21.0-51.0) L 03/31/24 04:30 [place] % (Auto) 11.7 % (0.0-13.0) 03/31/24 04:30 Eos % (Auto) 0.3 % (0.9-2.9) L 03/31/24 04:30 Baso % (Auto) 0.1 % (0.2-1.0) L 03/31/24 04:30 Neut # (Auto) 11.5 x10^3/uL (2.2-4.8) H 03/31/24 04:30 Lymph # (Auto) 1.4 X10^3/uL (1.3-2.9) 03/31/24 04:30 [place] # (Auto) 1.7 x10^3/uL (0.3-0.8) H 03/31/24 04:30 Eos # (Auto) 0.0 x10^3/uL (0.0-0.2) 03/31/24 04:30 Baso # (Auto) 0.0 X10^3/uL (0.0-0.1) 03/31/24 04:30 Absolute Nucleated RBC 0.1 /100WBC 03/31/24 04:30 Total Counted 100 03/30/24 05:08 Neutrophils % (Manual) 84 % (39-76) H 03/30/24 05:08 Lymphocytes % (Manual) 6 % (13-43) L 03/30/24 05:08 Monocytes % (Manual) 10 % (4-9) H 03/30/24 05:08 Plt Morphology Comment Normal (NORMAL) 03/30/24 05:08 RBC Morphology Normal (NORMAL) 03/30/24 05:08 Sodium 139 mmol/L (136-145) 03/31/24 04:30 Corrected Sodium 139 mmol/L (136-145) 03/31/24 04:30 Potassium 3.3 mmol/L (3.5-5.1) L 03/31/24 04:30 Chloride 107 mmol/L (98-107) 03/31/24 04:30 Carbon Dioxide 25.8 mmol/L (21-32) 03/31/24 04:30 BUN 37 mg/dL (7-18) H 03/31/24 04:30 Creatinine 1.19 mg/dL (0.70-1.30) 03/31/24 04:30 Est GFR (MDRD) Af Amer > 60 (>60) 03/31/24 04:30 Est GFR (MDRD) Non-Af > 60 (>60) 03/31/24 04:30 Glucose 115 mg/dL (65-99) H 03/31/24 04:30 Lactic Acid 0.7 mmol/L (0.4-2.0) 03/28/24 08:50 Calcium 8.7 mg/dL (8.5-10.1) 03/31/24 04:30 Corrected Calcium 10.4 mg/dL (8.5-10.1) H 03/31/24 04:30 Magnesium 1.9 mg/dL (2.0-2.9) L 03/31/24 04:30 Total Bilirubin 0.80 mg/dL (0.2-1.0) 03/31/24 04:30 AST 9 Units/L (15-37) L 03/31/24 04:30 ALT 12 Units/L (12-78) 03/31/24 04:30 Alkaline Phosphatase 61 Units/L (46-116) 03/31/24 04:30 Total Protein 5.3 g/dL (6.4-8.2) L 03/31/24 04:30 Albumin 1.9 g/dL (3.4-5.0) L 03/31/24 04:30 Globulin 3.4 g/dL (2.5-4.5) 03/31/24 04:30 Albumin/Globulin Ratio 0.6 Ratio (1.1-2.1) L 03/31/24 04:30 Specimen Type Clean catch urine 03/27/24 12:08 Urine Color Yellow (YELLOW) 03/27/24 12:08 Urine Appearance Slightly hazy (CLEAR) 03/27/24 12:08 Urine pH 6.0 (5.0 - 8.0) 03/27/24 12:08 Ur Specific [place] 1.020 (1.000-1.030) 03/27/24 12:08 Urine Protein 2+ (NEGATIVE) 03/27/24 12:08 Urine Glucose (UA) Negative (NEGATIVE) 03/27/24 12:08 Urine Ketones 1+ (NEGATIVE) 03/27/24 12:08 Urine Blood 2+ (NEGATIVE) 03/27/24 12:08 Urine Nitrite Negative (NEGATIVE) 03/27/24 12:08 Urine Bilirubin Negative (NEGATIVE) 03/27/24 12:08 Urine Urobilinogen Normal (NORMAL) 03/27/24 12:08 Ur Leukocyte Esterase 1+ (NEGATIVE) 03/27/24 12:08 Urine RBC 5-10 /HPF (0-3) A 03/27/24 12:08 Urine WBC Tntc /HPF (0-5) A 03/27/24 12:08 Ur Squamous Epith Cells Rare /HPF (NEGATIVE) 03/27/24 12:08 Urine Bacteria Trace /HPF (NEGATIVE) 03/27/24 12:08 Ur Culture Indicated? Yes/culture set up 03/27/24 12:08 Assessment and Plan 1: PO small bowel resection . repair incarcerated umbilical hernia day 4 . tachycardia and A Fib dehydration is corrected same IV ABT , OOB . soft diet .. to obtain EKG ,chest X Ray, U/A from surgical point of view Pt is cleared .. Problem Patient Problems: Patient Problems Abdominal hernia (Acute) K46.9
[2024-03-31] MEDS: MAG-OX TAB PO SCH (08:22)
[2024-03-31] MEDS: K-DUR TAB 20 MEQ PO SCH (08:23)
[2024-03-31 08:37] LABS: BILIRUBIN,URINE NEGATIVE (NEGATIVE); BLOOD/HEMOGLOBIN,URINE 4+ (NEGATIVE); GLUCOSE, URINE NEGATIVE (NEGATIVE); KETONES,URINE NEGATIVE (NEGATIVE); LEUKOCYTE ESTERASE ,URINE 2+ (NEGATIVE); NITRITES,URINE NEGATIVE (NEGATIVE); PROTEIN,URINE 2+ (NEGATIVE); UROBILINOGEN,URINE NORMAL (NORMAL)
[2024-03-31 08:43] LABS: APPEARANCE,URINE FLOCCULENT (CLEAR); COLOR,URINE DARK YELLOW (YELLOW)
[2024-03-31 08:59] LABS: BACTERIA,URINE NEGATIVE /HPF (NEGATIVE); GRANULAR CASTS,URINE RARE /LPF (NEGATIVE); SQUAMOUS EPITHELIAL CELL,UR FEW /HPF (NEGATIVE)
--- NOTE | 2024-03-31 09:12 | EKG ---
Test Reason : arrythmia Blood Pressure : */* mmHG Vent. Rate : 116 BPM Atrial Rate : * BPM P-R Int : * ms QRS Dur : 106 ms QT Int : 332 ms P-R-T Axes : * -42 62 degrees QTc Int : 461 ms Atrial fibrillation with rapid ventricular response Left axis deviation Abnormal ECG When compared with ECG of 31-MAR-2024 05:04, No significant change was found Confirmed by Luis A Slater MD ([id number]) on 03/31/2024 10:37:31 AM Referred By: Confirmed By: Luis A Slater MD
--- NOTE | 2024-03-31 10:08 | RAD ---
EXAM:Portable chestHISTORY:Shortness of breathCOMPARISON:03/27/2024FINDINGS:Hear t is this examination minimally enlarged. No congestive heart failure is noted. Aorta is calcified. Right lung and left upper lung ayers remain clear. New on this examination is marked increased density in the retrocardiac area of the left lower lobe obscuring the left hemidiaphragm. This could be on the basis of atelectasis, infiltrate, effusion or combination. Upright PA and lateral chest examination may be of further diagnostic value. No pneumothorax identified. Bony thorax is unremarkable.IMPRESSION:New marked increased attenuation retrocardiac area of the left lower lobe obscuring the left hemidiaphragm. Differential diagnosis and recommendations as aboveTHIS IS AN ELECTRONICALLY VERIFIED FINAL REPORT03/31/2024 10:05 AM - Electronically signed by Kevin Edouard MD
[2024-03-31] MEDS: ALBUMIN HUMAN 25%- 100 ML 100 ML IV SCH (11:29)
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
--- NOTE | 2024-03-31 17:35 | NOTE.SOAP ---
Soap Note Note for Day of Date of Exam: 03/31/24 Subjective Data Subjective Data: Up and about with four-legged walker. Eating a regular breakfast this morning. Belly pain improving. Released by surgery. Objective Data Objective Data: Well-developed, well-nourished, elderly male in no acute distress. Bowel sounds are present and belly is minimally tender and soft. Heart regular rate and rhythm. Lungs are clear. Speech is clear. Mood and affect appropriate. Assessment Assessment: 1. Postop day 4 from small bowel resection due to incarcerated ventral hernia. Doing well. 2. Paroxysmal atrial fibrillation. [id number] score is 2 only from age. Would need to be discharged on anticoagulation. Also had a bout of A-fib with RVR yesterday evening, would need to go home on diltiazem or metoprolol. Given overall appropriate blood pressures, would recommend diltiazem. 3. BPH with lower urinary tract symptoms. Well-controlled on home meds.
[2024-03-31] MEDS: TOPROL XL PO SCH (21:29)
[2024-03-31] MEDS: ELIQUIS PO SCH (21:37)
[2024-04-01 05:55] LABS: BASOPHILS % (AUTO) 0.3 % (0.2-1.0); EOSINOPHILS # (AUTO) 0.1 x10^3/uL (0.0-0.2); LYMPHOCYTES # (AUTO) 1.3 X10^3/uL (1.3-2.9); LYMPHOCYTES % (AUTO) 12.1 % (21.0-51.0); MEAN CORPUSCULAR HEMOGLOBIN 31.5 pg (27.0-34.0); MEAN CORPUSCULAR HGB CONC 34.4 g/dL (33.0-35.0); MEAN CORPUSCULAR VOLUME 91.4 fL (80.0-100.0); MEAN PLATELET VOLUME 9.1 fL (7.4-11.0); MONOCYTES # (AUTO) 1.9 x10^3/uL (0.3-0.8); MONOCYTES % (AUTO) 18.1 % (0.0-13.0); NEUTROPHILS # (AUTO) 7.4 x10^3/uL (2.2-4.8); NEUTROPHILS % (AUTO) 68.5 % (42.0-75.0); PLATELET COUNT 194 X10^3/uL (150.0-450.0); RED CELL DISTRIBUTION WIDTH 15.4 % (11.6-16.5); WHITE BLOOD COUNT 10.8 X10^3/uL (3.6-10.0)
[2024-04-01 06:13] LABS: ALANINE AMINOTRANSFERASE 9 Units/L (12-78); ALKALINE PHOSPHATASE 54 Units/L (46-116); ASPARTATE AMINO TRANSFERASE 9 Units/L (15-37); BLOOD UREA NITROGEN 30 mg/dL (7-18); CALCIUM 8.6 mg/dL (8.5-10.1); CHLORIDE 110 mmol/L (98-107); COR CA(FOR HYPOALB) 10.2 mg/dL (8.5-10.1); CREATININE 0.78 mg/dL (0.70-1.30); GLUCOSE 106 mg/dL (65-99); POTASSIUM 4.1 mmol/L (3.5-5.1); SODIUM 138 mmol/L (136-145); TOTAL PROTEIN 4.7 g/dL (6.4-8.2); eGFR NON BLACK RACES > 60 (>60)
[2024-04-01] MEDS ORDERED: TOPROL XL PO ONE (07:55)
--- NOTE | 2024-04-01 08:32 | NOTE.SOAP ---
Soap Note Note for Day of Date of Exam: 04/01/24 Subjective Data Subjective Data: no palp/sob- staying 4-5 more days Objective Data Objective Data: echo: good lv tsh : ok clear lungs tele: afib Assessment Assessment: afib/so so rate control Plan Plan: add ccb. follow- cont doac- went low dose due to recent surg/age/some instablity
[2024-04-01] MEDS: CARDIZEM TAB 30 MG PLAIN PO SCH (09:09)
[2024-04-01 10:56] VITALS: BP 112/65; PULSE 103; RESP 24; TEMP 97.8; O2SAT 94
--- NOTE | 2024-04-02 09:41 | PCM.DCPLAN ---
DISCHARGE SUMMARY Admission Date Date of Admission: 03/27/24 Discharge Date Discharge Date: 04/01/24 Admission Diagnoses (1) Incarcerated hernia: Status: Acute (2) Atrial fibrillation: Status: Acute Discharge Medications Discharge Medications: Home Medication List finasteride 5 mg tablet 5 mg PO DAILY 03/27/24 [History] apixaban 5 mg tablet (Eliquis) 5 mg PO BID 30 days #60 tabs 03/31/24 [Rx] diltiazem HCl 30 mg tablet 30 mg PO TID #90 tabs 03/31/24 [Rx] Prescriptions: apixaban [Eliquis] Andres Maldonado diltiazem HCl Andres Maldonado Hospital Course Vital Signs: Vital Signs Temperature 98.2 F Pulse Rate [Left Brachial] 93 Respiratory Rate 18 Blood Pressure [Left Arm] 103/60 O2 Sat by Pulse Oximetry 95 Latest Lab Results: Laboratory Last Values WBC 10.8 X10^3/uL (3.6-10.0) H 04/01/24 05:34 RBC 3.50 X10^6/uL (4.7-6.0) L 04/01/24 05:34 Hgb 11.0 g/dL (13.5-18.0) L 04/01/24 05:34 Hct 32.0 % (42.0-54.0) L 04/01/24 05:34 MCV 91.4 fL (80.0-100.0) 04/01/24 05:34 MCH 31.5 pg (27.0-34.0) 04/01/24 05:34 MCHC 34.4 g/dL (33.0-35.0) 04/01/24 05:34 RDW 15.4 % (11.6-16.5) 04/01/24 05:34 Plt Count 194 X10^3/uL (150.0-450.0) 04/01/24 05:34 Plt Count Comment Decreased (ADEQUATE) 03/30/24 05:08 MPV 9.1 fL (7.4-11.0) 04/01/24 05:34 Neut % (Auto) 68.5 % (42.0-75.0) 04/01/24 05:34 Lymph % (Auto) 12.1 % (21.0-51.0) L 04/01/24 05:34 [place] % (Auto) 18.1 % (0.0-13.0) H 04/01/24 05:34 Eos % (Auto) 1.0 % (0.9-2.9) 04/01/24 05:34 Baso % (Auto) 0.3 % (0.2-1.0) 04/01/24 05:34 Neut # (Auto) 7.4 x10^3/uL (2.2-4.8) H 04/01/24 05:34 Lymph # (Auto) 1.3 X10^3/uL (1.3-2.9) 04/01/24 05:34 [place] # (Auto) 1.9 x10^3/uL (0.3-0.8) H 04/01/24 05:34 Eos # (Auto) 0.1 x10^3/uL (0.0-0.2) 04/01/24 05:34 Baso # (Auto) 0.0 X10^3/uL (0.0-0.1) 04/01/24 05:34 Absolute Nucleated RBC 0.0 /100WBC 04/01/24 05:34 Total Counted 100 03/30/24 05:08 Neutrophils % (Manual) 84 % (39-76) H 03/30/24 05:08 Lymphocytes % (Manual) 6 % (13-43) L 03/30/24 05:08 Monocytes % (Manual) 10 % (4-9) H 03/30/24 05:08 Plt Morphology Comment Normal (NORMAL) 03/30/24 05:08 RBC Morphology Normal (NORMAL) 03/30/24 05:08 Sodium 138 mmol/L (136-145) 04/01/24 05:34 Corrected Sodium TNP 04/01/24 05:34 Potassium 4.1 mmol/L (3.5-5.1) 04/01/24 05:34 Chloride 110 mmol/L (98-107) H 04/01/24 05:34 Carbon Dioxide 24.0 mmol/L (21-32) 04/01/24 05:34 BUN 30 mg/dL (7-18) H 04/01/24 05:34 Creatinine 0.78 mg/dL (0.70-1.30) 04/01/24 05:34 Est GFR (MDRD) Af Amer > 60 (>60) 04/01/24 05:34 Est GFR (MDRD) Non-Af > 60 (>60) 04/01/24 05:34 Glucose 106 mg/dL (65-99) H 04/01/24 05:34 Lactic Acid 0.7 mmol/L (0.4-2.0) 03/28/24 08:50 Calcium 8.6 mg/dL (8.5-10.1) 04/01/24 05:34 Corrected Calcium 10.2 mg/dL (8.5-10.1) H 04/01/24 05:34 Magnesium 2.0 mg/dL (2.0-2.9) 04/01/24 05:34 Total Bilirubin 0.70 mg/dL (0.2-1.0) 04/01/24 05:34 AST 9 Units/L (15-37) L 04/01/24 05:34 ALT 9 Units/L (12-78) L 04/01/24 05:34 Alkaline Phosphatase 54 Units/L (46-116) 04/01/24 05:34 Total Protein 4.7 g/dL (6.4-8.2) L 04/01/24 05:34 Albumin 2.0 g/dL (3.4-5.0) L 04/01/24 05:34 Globulin 2.7 g/dL (2.5-4.5) 04/01/24 05:34 Albumin/Globulin Ratio 0.7 Ratio (1.1-2.1) L 04/01/24 05:34 TSH 3rd Generation 1.319 uIU/mL (0.358-3.74) 03/31/24 04:30 Specimen Type Clean catch urine 03/31/24 08:27 Urine Color Dark yellow (YELLOW) 03/31/24 08:27 Urine Appearance Flocculent (CLEAR) 03/31/24 08:27 Urine pH 6.0 (5.0 - 8.0) 03/31/24 08:27 Ur Specific [place] 1.025 (1.000-1.030) 03/31/24 08:27 Urine Protein 2+ (NEGATIVE) 03/31/24 08:27 Urine Glucose (UA) Negative (NEGATIVE) 03/31/24 08:27 Urine Ketones Negative (NEGATIVE) 03/31/24 08:27 Urine Blood 4+ (NEGATIVE) 03/31/24 08:27 Urine Nitrite Negative (NEGATIVE) 03/31/24 08: Urine Bilirubin Negative (NEGATIVE) 03/31/24 08: Urine Urobilinogen Normal (NORMAL) 03/31/24 08:27 Ur Leukocyte Esterase 2+ (NEGATIVE) 03/31/24 08: Urine RBC 5-10 /HPF (0-3) A 03/31/24 08: Urine WBC 3-5 /HPF (0-5) 03/31/24 08:27 Ur Squamous Epith Cells Few /HPF (NEGATIVE) 03/31/24 08: Amorphous Sediment 1+ /HPF (NEGATIVE) 03/31/24 08: Urine Bacteria Negative /HPF (NEGATIVE) 03/31/24 08: Granular Casts Rare /LPF (NEGATIVE) 03/31/24 08:27 Urine Mucus Few /HPF (NEGATIVE) 03/31/24 08:27 Ur Culture Indicated? No/not indicated 03/31/24 08:27 Hospital Course: Patient admitted and went to the OR that night. Underwent small bowel resection and hernia repair. Was Over the weekend for close monitoring. He pulled his G- tube the night of the surgery. Was slowly able to advance diet, surgery continue to follow, and patient steadily improved. It was decided at discharge that he would move to a swing bed capacity and get 1 week of further rehab. Preop EKG showed atrial fibrillation and multiple EKGs throughout admission continued this. Cardiology was consulted by surgery and advised beta-susy over diltiazem with use of a DOAC. He was started on Eliquis and metoprolol. Diltiazem was go to be the next add on based on blood pressure response. Patient discharged to swing bed status and improving condition.
== END 2024-04-01 10:59 | disposition swing bed (61) | DRG 394 ==
LOC: ER 11:18 → MED/SURG 14:38
PROVIDERS: ADMIT Family Medicine; ATTEND Family Medicine
DX: R10.84 Generalized abdominal pain; N39.43 Post-void dribbling; Z16.19 Resistance to other specified beta lactam antibiotics; B95.7 Other staphylococcus as the cause of diseases classified elsewhere; R26.89 Other abnormalities of gait and mobility; R73.09 Other abnormal glucose; Z16.12 Extended spectrum beta lactamase (ESBL) resistance; K42.0 Umbilical hernia with obstruction, without gangrene; I48.0 Paroxysmal atrial fibrillation; I49.8 Other specified cardiac arrhythmias; Z16.29 Resistance to other single specified antibiotic; N40.1 Benign prostatic hyperplasia with lower urinary tract symptoms; R00.0 Tachycardia, unspecified; Z16.11 Resistance to penicillins

== ENCOUNTER 2024-04-01 11:00 | Inpatient (IN) ==
[2024-04-01] MEDS ORDERED: DILAUDID INJ IVP PRN (11:39)
[2024-04-01] MEDS ORDERED: TYLENOL 325 MG TAB PO PRN (11:39)
[2024-04-01] MEDS ORDERED: NS 250 ML IV 25 ML IV PRN (11:39)
[2024-04-01] MEDS ORDERED: TORADOL 30 MG VIAL IVP PRN (11:39)
[2024-04-01] MEDS ORDERED: ULTRAM PO PRN (11:39)
[2024-04-01] MEDS ORDERED: ZOFRAN INJ 4 MG VIAL IVP PRN (11:39)
[2024-04-01] MEDS ORDERED: MYLICON TAB 80 MG CHEW PO PRN (11:39)
[2024-04-01] MEDS: FLAGYL IV PREMIX 500 MG BAG 500 MG/100 ML BAG IV SCH (14:47)
--- NOTE | 2024-04-01 16:09 | PT/OTEVAL ---
PT/OT OBJECTIVES - HISTORY Prescription: OT Consult Diagnosis: ABD hernia surgery, weakness Precautions: ABD binder, fall risk PMH: Arthritis, Hernia, Appendectomy, Cholecystectomy, Joint Replacement Prior Level of Function: Independent Other: Per patient report (and confirmed by family present in room)- Pt resides alone in single story home with 1 step to enter from outside but has 3 steps in his house to get to his bedroom. PLOF: Independent within home and community without a device but will use SPC as needed if feeling unsteady. DME: SPC. History of Present Illness: Patient presented to the ER after feeling a pop in his abdomen that continued to hurt. He noticed a protrusion in the abdominal wall. ER workup consistent with incarcerated hernia due to small bowel. Underwent surgical release 03/27. Pt did have partial small bowel resection. Also noted A-fib on EKG but sinus rhythm during surgery. - COGNITION Mental Status: Alert, Oriented, Name, Place Communication Status: Verbal Ability to Follow Directions: 2 Step Affect: Calm - PAIN Abdomen Pain Scale: Moderate Comments: "It's sore, but I am okay" - TRANSFERS Supine to Sit: Minimal Sit to Stand: Minimal Toileting: Minimal Safety (requires cues for:): Hand Placement Precaution - ADL'S Upper Body ADL: Minimum Lower Body ADL: Moderate Lower Body ADL: Needs a bleach range operator due to ABD incision Toileting: Minimum Bathing: Minimum Hygeine: Supervision - BALANCE Static Sitting: Good Standing: Fair Dynamic Sitting: Good Standing: Fair - NEUROMOTOR/SENSATION Tj. Lower Ext Sensation: WFL Coordination: WFL Tj. Upper Ext Sensation: WFL Coordination: WFL - HAND DOMINANCE Extremity Function: Hand Dominance: Right - ROM Bilateral UE ROM: WFL - STRENGTH Bilateral LE Strength Number: 4 Other comment: 3- Bilateral UE Strength Number: 3 - GAIT Type of Assistive Device: Rolling Walker - TREATMENT Date: 04/01/24 Time: 14:15 Treatment Type: Evaluation Treatment Provided: Other - TOTAL TREATMENT TIME Total Time: 90 - POST ASSESSMENT Post Assessment Comment: Pt was seen for skilled OT to assess CLOF. Pt alert and able to provide PLOF and hx and agreeable to participate with skilled OT. Pt completed bathing and dressing this date. Pt completed UB bathing with touch A, LB bathing with min A. UB/LB dressing with min A. Pt given time for task. Pt has a binder on. Pt stood and completed hand hygiene with touch A for balance. Pt functionally AMB with RW and touch A for safety. Given standing RBs. Pt fatigued after bathing. Pt agreeable to sit up in recliner with all needs met and call light within reach. Pt demonstrate deficits with ADLs and ADL functional mobility. Pt would benefit from skilled OT services to address ADL deficits to facilitate highest level of ADL function needed for safe d/c planning. - EXIT DISPOSITION Exit Position: CHAIR Call light in reach: Yes PT/OT ASSESSMENT - OT Problem List: Decreased Mobility ADL's, Decreased Safety Aware, Decreased Dressing, Decreased Bathing, Decreased Grooming, Decreased UE Strength - OT GOALS Die Maker Trim Goals Days: 20 Mobility for ADL's: Pt to functionally transfer with LRAD and set up A Safety Awareness: Pt to improve safety awareness to G+ Dressing: Pt to improve LB dressing with AE PRN to set up A Bathing: Pt to improve overall bathing with AE PRN with set up A Grooming: Pt to improve grooming and oral care to (I) Upper Ext. Strength/Use: Pt to improve MMT in BUE by 2 grades Other: Pt to improve FAT to G Short Term Goals Days: 10 Mobility for ADL's: Pt to functionally transfer with LRAD and supv A Safety Awareness: Pt to improve safety awareness to G Dressing: Pt to improve LB dressing with AE PRN to supv A Bathing: Pt to improve overall bathing with AE PRN with supv A Grooming: Pt to improve grooming and oral care to set up A Upper Ext. Strength/Use: Pt to improve MMT in BUE by 1 grade Other: Pt to improve FAT to F+ - PATIENT GOALS Patient/Family Goals: To feel better and go home Rehabilitation Potential: Good to meet stated goals Justification for Potential: To facilitate highest level of ADL function needed for safe d/c planning. - PLAN Suggested Treatment Plan: Therapeutic Activity, Self Care Training, Neuro Re- education, Therapeutic Ex with HEP, Patient Education, Family Education - FREQUENCY AND DURATION OT: 5x a week x 20 days Expected Continuation of Care at Discharge: Home, Home Health
--- NOTE | 2024-04-01 16:44 | PT/OTEVAL ---
PT/OT OBJECTIVES - HISTORY Prescription: PT Consult Diagnosis: Abdominal Hernia Surgery, Weakness Precautions: Fall Risk, Abdominal Bunder when OOB PMH: Arthritis, Hernia, Appendectomy, Cholecystectomy, Joint Replacement Prior Level of Function: Independent Other: Per patient report- Pt resides alone in single story home with 1 step to enter from outside but has 3 steps in his house to get to his bedroom. PLOF: Independent within home and community without a device but will use SPC as needed if feeling unsteady. DME: SPC. History of Present Illness: Pt is an 88 year old male who presented to [facility] ER on 03/27/2024 with abdominal pain and following further assessment was deemed surgical canditate and underwent ex-lap with small bowel resection and repair of strangulated umbilical hernia on 03/28/2024. Pt was noted with increased weakness and unable to safely return home alone and was transitioned for swing bed rehab program on 04/01/2024. - COGNITION Mental Status: Alert, Oriented, Name, Date, Place, Purpose Communication Status: Verbal, Hard of Hearing Ability to Follow Directions: 2 Step - PAIN Abdomen Pain Scale: Moderate Comments: "It's sore, but I am okay and it's getting better" - BED MOBILITY Rolling: Minimal - TRANSFERS Supine to Sit: Minimal Sit to Stand: Minimal Sit or Stand Pivot: Minimal - BALANCE Static Sitting: Good Standing: Fair Balance Comment: Fair- Dynamic Sitting: Good Standing: Poor - NEUROMOTOR/SENSATION Tj. Lower Ext Sensation: WFL Coordination: WFL Proprioception: WFL - HAND DOMINANCE Extremity Function: Hand Dominance: Right - ROM Bilateral LE ROM: WFL Muscle Tone: WFL - STRENGTH Bilateral LE Strength Number: 3 Other comment: 3+/5 - GAIT Pt. ambulates how many feet?: 100 Amount of Assistance Required: Minimal Type of Assistive Device: Rolling Walker - TREATMENT Date: 04/01/24 Time: 15:30 Treatment Type: Evaluation Treatment Provided: Gait, Therapeutic Activities - TOTAL TREATMENT TIME Total Time: 60 - POST ASSESSMENT Post Assessment Comment: Pt was found supine in bed in room and agreeable to participation in PT services. Pt reports abdominal pain/discomfort but reports gradual improvements since surgery. Pt assisted to don abdominal binder. Pt required min assist for bed mobility tasks and for functional transfers requiring cues for proper hand placement and facilitation of COM over STEVE. Pt performed gait training with FWW with min assist- 100ft bouts before requiring seated therapeutic rest breaks. Pt cued for proper foot placement and upright posture throughout. Pt with excellent motivation for participation to address deficits and facilitate highest level of function and safe dsicharge planning. - EXIT DISPOSITION Exit Position: CHAIR Call light in reach: Yes Comments: All needs met. PT/OT ASSESSMENT - PT Problem List: Decreased Bed Mobility, Decreased Transfers, Decreased Gait, Decreased Balance, Decreased LE Strength - PT GOALS Short Term Goals Days: 10 Mobility: Pt will perform bed mobility tasks with supervision Transfers: Pt will perform functional transfers with supervision Gait: Pt will ambulate 250ft with FWW with supervision Balance: Pt will increase static standing balance to good Cardiology Nurse Goals Days: 20 Mobility: Pt will perform bed mobility tasks with mod I Transfers: Pt will perform functional transfers with mod I Gait: Pt will ambulate 300ft with SPC and mod I Balance: Pt will increase dynamic standing balance to good ROM/Strength: Pt will increase BLE strength to 5/5 Others: Pt will ascend/descend 3 steps with mod I - OT GOALS Cardiology Nurse Goals Days: 20 Mobility for ADL's: Pt to functionally transfer with LRAD and set up A Safety Awareness: Pt to improve safety awareness to G+ Dressing: Pt to improve LB dressing with AE PRN to set up A Bathing: Pt to improve overall bathing with AE PRN with set up A Grooming: Pt to improve grooming and oral care to (I) Upper Ext. Strength/Use: Pt to improve MMT in BUE by 2 grades Other: Pt to improve FAT to G Short Term Goals Days: 10 Mobility for ADL's: Pt to functionally transfer with LRAD and supv A Safety Awareness: Pt to improve safety awareness to G Dressing: Pt to improve LB dressing with AE PRN to supv A Bathing: Pt to improve overall bathing with AE PRN with supv A Grooming: Pt to improve grooming and oral care to set up A Upper Ext. Strength/Use: Pt to improve MMT in BUE by 1 grade Other: Pt to improve FAT to F+ - PATIENT GOALS Patient/Family Goals: "I want to get my strength back so I can go back home" Goals Discussed with Patient/Family: Yes Rehabilitation Potential: Good to meet stated goals Justification for Potential: Facilitate highest level of function and safe discharge planning. - PLAN Suggested Treatment Plan: Bed Mobility Training, Therapeutic Activity, Gait Training, Neuro Re-education, Therapeutic Ex with HEP, Patient Education, Family Education, Other Other comment: Manual Therapy - FREQUENCY AND DURATION PT: 5-6x per week x 20 days Expected Continuation of Care at Discharge: Home Health Anticipated Equipment Needs: TBD pending progress with therapy services.
[2024-04-01] MEDS: CARDIZEM TAB 30 MG PLAIN PO SCH (17:35)
[2024-04-01 19:35] VITALS: BMI 23.7
[2024-04-01] MEDS: NS 1,000 ML IV 1,000 ML IV SCH (19:42)
[2024-04-01] MEDS: PROTONIX INJ 40 MG VIAL IVP SCH (20:59)
[2024-04-01] MEDS: ELIQUIS PO SCH (20:59)
[2024-04-01] MEDS: CIPRO IV 400 MG PREMIX* 400 MG/200 ML IV.SOLN. IV SCH (20:59)
[2024-04-01] MEDS: TOPROL XL PO SCH (21:00)
[2024-04-01] MEDS: TOPROL XL PO ONE (21:13)
[2024-04-01] MEDS: COLACE CAP 100 MG PO SCH (21:13)
[2024-04-01] MEDS: MIRALAX POWDER (1 DOSE 17 G) PO SCH (21:13)
[2024-04-02] MEDS ORDERED: TOPROL XL PO ONE (08:16)
[2024-04-02] MEDS: PROSCAR PO SCH (08:49)
[2024-04-02] MEDS: FLOMAX PO SCH (08:49)
[2024-04-02] MEDS: ALBUMIN HUMAN 25%- 100 ML 100 ML IV SCH (08:51)
--- NOTE | 2024-04-02 10:00 | DR.PROGNOT ---
HOSPITAL PROGRESS NOTE Progress Note for Day of: Progress Note Date: 04/02/24 Chief Complaint Chief Complaint: doing very well , tolerating diet well and having normal BM . pathology showed ischemic necrosis of the resected SB . c/o being weak and tired .Pt has A Fib and on medications , anticoagulants. WBC 10.8 . BUN 30 . normal. abdomen is soft, flat , BS+ clean incision , no infection . Past Medical Family Social History Allergies: Allergies No Known Drug Allergies Allergy (Verified 08/18/20 08:17) Physical Exam Oriented: Normal Eyes: Normal Ear: Normal Nose: Normal Throat: Normal Respiratory: Normal Cardiovascular: Tachycardia and Other (A Fib) GI:Auscultation: Normal GI: Tenderness: Normal and Other (soft, flat , good BS) Speech Pattern: Clear and Appropriate Assessment and Plan 1: s/p abdominal surgery . SB resection for ischemic bowel within umbilical hernia . to D/C all ABT . 2: A Fib . same plan as per Dr Palacios.
[2024-04-02] MEDS: NORCO 5/325 MG TAB PO PRN (15:16)
--- NOTE | 2024-04-02 15:46 | DR.H&P ---
H&P History & Physical for Day of: H&P Date: 04/02/24 Chief Complaint Chief Complaint: rehab after hernia repair History of Present Illness History of Present Illness: Patient mated to swing bed for rehab for the next 7 days due to recent incarcerated ventral hernia with ex lap repair and partial small bowel resection. Cardiology was consulted during his recent admission due to A-fib on multiple EKGs and telemetry. It was decided to start him on metoprolol and Eliquis. He is continued on those. He has never been told he had A-fib in the past. He is ambulating well with therapy. Back to eating a regular diet. Plans are to go home after discharge. PMH: Atrial fibrillation, BPH, mixed urinary incontinence following prostate surgery. PSH: Prostate resection, small bowel resection due to incarcerated hernia, he rnia repair. Social: Retired dentist, local resident, no tobacco use or illicit drug use. ROS: 12 point ROS negative except for abdominal pain and lower extremity weakness. Vitals, imaging, labs reviewed. PE: Well-developed, well-nourished, elderly male in no acute distress. Head NCAT. Neck full range of motion with trachea midline. Heart rate is irregularly, irregular. Lungs are clear bilaterally. Bowel sounds are present with belly tender around incision. Mood and affect are appropriate. Able to move all extremities equally well with appropriate strength for age. Past Medical History Past Medical History: Arthritis Past Surgical History Surgical History: Abdominal Surgery, Appendectomy, Cholecystectomy, Joint Replacement and Other Additional Surgical History: HERNIA REPAIR Medications Home Medications: Home Medications Medication Instructions Recorded Confirmed Type tamsulosin 0.4 mg capsule (Flomax) 0.4 mg PO DAILY 02/23/20 04/01/24 History finasteride 5 mg tablet 5 mg PO DAILY 03/27/24 04/01/24 History Allergies Allergies Allergy/AdvReac Type Severity Reaction Status Date / Time No Known Drug Allergies Allergy Verified 08/18/20 08:17 Oriented: Normal Assessment/Plan (1) Bilateral leg weakness: Narrative Support Text: Due to surgery and deconditioning. Continue PT and OT. Status: Acute (2) History of hernia repair: Narrative Support Text: Follow-up with surgery. Status: Acute (3) Atrial fibrillation: Qualifiers: Atrial fibrillation type: unspecified chronic Qualified Code(s): I48.20 - Chronic atrial fibrillation, unspecified Narrative Support Text: Follow-up with cardiology while continuing beta-susy, diltiazem, and Eliquis Status: Acute (4) BPH (benign prostatic hyperplasia): Qualifiers: Lower urinary tract symptom detail: post-void dribbling Lower urinary tract symptom presence: symptoms present Qualified Code(s): N40.1 - Benign prostatic hyperplasia with lower urinary tract symptoms; N39.43 - Post-void dribbling Narrative Support Text: Continue home meds. Status: Acute
[2024-04-02] MEDS: TOPROL XL PO ONE (21:26)
[2024-04-03 06:24] LABS: BASOPHILS % (AUTO) 0.4 % (0.2-1.0); EOSINOPHILS # (AUTO) 0.1 x10^3/uL (0.0-0.2); EOSINOPHILS % (AUTO) 0.7 % (0.9-2.9); HEMATOCRIT 29.5 % (42.0-54.0); HEMOGLOBIN 10.2 g/dL (13.5-18.0); LYMPHOCYTES # (AUTO) 1.5 X10^3/uL (1.3-2.9); LYMPHOCYTES % (AUTO) 12.5 % (21.0-51.0); MEAN CORPUSCULAR HEMOGLOBIN 31.4 pg (27.0-34.0); MEAN CORPUSCULAR HGB CONC 34.6 g/dL (33.0-35.0); MEAN CORPUSCULAR VOLUME 90.9 fL (80.0-100.0); MEAN PLATELET VOLUME 9.1 fL (7.4-11.0); MONOCYTES # (AUTO) 2.9 x10^3/uL (0.3-0.8); MONOCYTES % (AUTO) 23.8 % (0.0-13.0); NEUTROPHILS # (AUTO) 7.7 x10^3/uL (2.2-4.8); NEUTROPHILS % (AUTO) 62.6 % (42.0-75.0); PLATELET COUNT 203 X10^3/uL (150.0-450.0); RED BLOOD COUNT 3.25 X10^6/uL (4.7-6.0); RED CELL DISTRIBUTION WIDTH 15.8 % (11.6-16.5); WHITE BLOOD COUNT 12.4 X10^3/uL (3.6-10.0)
[2024-04-03 06:48] LABS: ALANINE AMINOTRANSFERASE 16 Units/L (12-78); ALBUMIN 2.1 g/dL (3.4-5.0); ALKALINE PHOSPHATASE 45 Units/L (46-116); ASPARTATE AMINO TRANSFERASE 12 Units/L (15-37); BLOOD UREA NITROGEN 25 mg/dL (7-18); CALCIUM 8.5 mg/dL (8.5-10.1); CARBON DIOXIDE 26.1 mmol/L (21-32); CHLORIDE 112 mmol/L (98-107); COR NA(FOR HYPERGLY) 144 mmol/L (136-145); CREATININE 0.72 mg/dL (0.70-1.30); GLUCOSE 116 mg/dL (65-99); POTASSIUM 3.7 mmol/L (3.5-5.1); SODIUM 144 mmol/L (136-145); TOTAL PROTEIN 4.5 g/dL (6.4-8.2); eGFR NON BLACK RACES > 60 (>60)
[2024-04-03 07:02] LABS: BAND NEUTROPHILS % 11 % (0-10); PLATELET MORPHOLOGY COMMENT NORMAL (NORMAL)
[2024-04-03] MEDS ORDERED: CONSULT PHARMACY - POTASSIUM & MAGNESIUM XX SCH (08:00)
[2024-04-03] MEDS ORDERED: TOPROL XL PO ONE (08:15)
[2024-04-03] MEDS: MAG-OX TAB PO SCH (09:10)
[2024-04-03] MEDS: K-DUR TAB 20 MEQ PO SCH (09:11)
[2024-04-03] MEDS: TOPROL XL PO ONE (22:11)
[2024-04-04] MEDS ORDERED: TOPROL XL PO ONE (08:26)
[2024-04-04] MEDS: CARDIZEM TAB 30 MG PLAIN PO SCH (09:07)
--- NOTE | 2024-04-04 10:37 | NOTE.SOAP ---
Soap Note Note for Day of Date of Exam: 04/04/24 Subjective Data Subjective Data: Patient overall doing well. Currently eaten breakfast. No overnight events. Heart rate still little elevated. Blood pressure on lower side. He is on diltiazem 3 times daily and metoprolol. He has taken Eliquis. Objective Data Objective Data: Well-developed, well-nourished, elderly male in no acute distress. Reclined in bed eating breakfast. Heart irregularly, irregular with no murmur. Lungs are clear with strong speech. Bowel sounds are present with minimal tenderness other than that incision. Mood and affect are appropriate. Assessment Assessment: 1. Persistent atrial fibrillation. Increase diltiazem to 30 4 times daily. 2. S/p small bowel resection due to incarcerated ventral hernia. Continue PT and OT for generalized weakness. Plan on discharge home next week.
[2024-04-04] MEDS: TOPROL XL PO ONE (20:55)
[2024-04-05] MEDS ORDERED: TOPROL XL PO ONE (09:02)
[2024-04-06] MEDS: TOPROL XL PO ONE ×2 (07:32→08:37)
--- NOTE | 2024-04-06 11:22 | PCM.PROG ---
Progress Note Progress Note for Day of Date of Exam: 04/06/24 Subjective Subjective: Patient is a 88-year-old male status post small bowel resection due to incarcerated ventral hernia. He is currently swing bed receiving physical therapy for generalized weakness. He had a concern this morning that he has a lot of scrotal swelling. He would like surgery to evaluate. On exam he does have scrotal edema, denies any pain. Will consult general surgeryDr. Payton for further evaluation. Will also discontinue his IV fluids. Patient is tolerating p.o. intake well. Otherwise continue closely monitor. Past Medical Family Social History Allergies: Allergies No Known Drug Allergies Allergy (Verified 08/18/20 08:17) Review of Systems ROS changes noted: see HPI Vital Signs and I&O's Vital Signs: Vital Signs Temperature 98.5 F Pulse Rate [Brachial] 95 Respiratory Rate 23 Blood Pressure [Left Arm] 126/70 O2 Sat by Pulse Oximetry 93 Intake and Output: Intake & Output 04/03/24 04/04/24 04/05/24 04/06/24 23:59 23:59 23:59 23:59 Intake Total 3880 / 3880 2734 / 2734 2655 / 2655 1046 / 1046 Output Total 1150 / 1150 430 / 430 600 / 600 50 / 50 Balance 2730 / 2730 2304 / 2304 2055 / 205 996 / 996 Physical Exam Oriented: Normal Eyes: Normal Ear: Normal Nose: Normal Throat: Normal Respiratory: Normal Cardiovascular: Other (A Fib) : Other (scrotal edema) Auscultation: Bowel Sounds: Normal Tenderness: Normal and Other (soft, flat , good BS) Speech Pattern: Clear and Appropriate Laboratory and Diagnostics 04/03/24 05:29 04/03/24 05:29 Labs: Laboratory WBC 12.4 X10^3/uL (3.6-10.0) H 04/03/24 05: RBC 3.25 X10^6/uL (4.7-6.0) L 04/03/24 05: Hgb 10.2 g/dL (13.5-18.0) L 04/03/24 05: Hct 29.5 % (42.0-54.0) L 04/03/24 05: MCV 90.9 fL (80.0-100.0) 04/03/24 05:29 MCH 31.4 pg (27.0-34.0) 04/03/24 05: MCHC 34.6 g/dL (33.0-35.0) 04/03/24 05: RDW 15.8 % (11.6-16.5) 04/03/24 05:29 Plt Count 203 X10^3/uL (150.0-450.0) 04/03/24 05:29 Plt Count Comment Adequate (ADEQUATE) 04/03/24 05:29 MPV 9.1 fL (7.4-11.0) 04/03/24 05:29 Neut % (Auto) 62.6 % (42.0-75.0) 04/03/24 05:29 Lymph % (Auto) 12.5 % (21.0-51.0) L 04/03/24 05:29 [place] % (Auto) 23.8 % (0.0-13.0) H 04/03/24 05:29 Eos % (Auto) 0.7 % (0.9-2.9) L 04/03/24 05:29 Baso % (Auto) 0.4 % (0.2-1.0) 04/03/24 05:29 Neut # (Auto) 7.7 x10^3/uL (2.2-4.8) H 04/03/24 05:29 Lymph # (Auto) 1.5 X10^3/uL (1.3-2.9) 04/03/24 05:29 [place] # (Auto) 2.9 x10^3/uL (0.3-0.8) H 04/03/24 05:29 Eos # (Auto) 0.1 x10^3/uL (0.0-0.2) 04/03/24 05:29 Baso # (Auto) 0.0 X10^3/uL (0.0-0.1) 04/03/24 05:29 Absolute Nucleated RBC 0.1 /100WBC 04/03/24 05:29 Total Counted 100 04/03/24 05:29 Neutrophils % (Manual) 55 % (39-76) 04/03/24 05:29 Band Neutrophils % 11 % (0-10) H 04/03/24 05:29 Lymphocytes % (Manual) 19 % (13-43) 04/03/24 05:29 Monocytes % (Manual) 15 % (4-9) H 04/03/24 05:29 Atypical Lymphocytes Few 04/03/24 05:29 Plt Morphology Comment Normal (NORMAL) 04/03/24 05:29 RBC Morphology Normal (NORMAL) 04/03/24 05:29 Sodium 144 mmol/L (136-145) 04/03/24 05:29 Corrected Sodium 144 mmol/L (136-145) 04/03/24 05:29 Potassium 3.7 mmol/L (3.5-5.1) 04/03/24 05:29 Chloride 112 mmol/L (98-107) H 04/03/24 05:29 Carbon Dioxide 26.1 mmol/L (21-32) 04/03/24 05:29 BUN 25 mg/dL (7-18) H 04/03/24 05:29 Creatinine 0.72 mg/dL (0.70-1.30) 04/03/24 05:29 Est GFR (MDRD) Af Amer > 60 (>60) 04/03/24 05:29 Est GFR (MDRD) Non-Af > 60 (>60) 04/03/24 05:29 Glucose 116 mg/dL (65-99) H 04/03/24 05:29 Calcium 8.5 mg/dL (8.5-10.1) 04/03/24 05:29 Corrected Calcium 10.0 mg/dL (8.5-10.1) 04/03/24 05:29 Magnesium 1.8 mg/dL (2.0-2.9) L 04/03/24 05:29 Total Bilirubin 0.50 mg/dL (0.2-1.0) 04/03/24 05:29 AST 12 Units/L (15-37) L 04/03/24 05:29 ALT 16 Units/L (12-78) 04/03/24 05:29 Alkaline Phosphatase 45 Units/L (46-116) L 04/03/24 05:29 Total Protein 4.5 g/dL (6.4-8.2) L 04/03/24 05:29 Albumin 2.1 g/dL (3.4-5.0) L 04/03/24 05:29 Globulin 2.4 g/dL (2.5-4.5) L 04/03/24 05:29 Albumin/Globulin Ratio 0.9 Ratio (1.1-2.1) L 04/03/24 05:29 Plan (1) Bilateral leg weakness: Status: Acute (2) History of hernia repair: Status: Acute (3) Atrial fibrillation: Status: Acute Qualifiers: Atrial fibrillation type: unspecified chronic Qualified Code(s): I48.20 - Chronic atrial fibrillation, unspecified (4) BPH (benign prostatic hyperplasia): Status: Acute Qualifiers: Lower urinary tract symptom presence: symptoms present Lower urinary tract symptom detail: post-void dribbling Qualified Code(s): N40.1 - Benign prostatic hyperplasia with lower urinary tract symptoms; N39.43 - Post-void dribbling
[2024-04-06] MEDS: PROTONIX TAB 40 MG PO SCH (12:12)
[2024-04-06] MEDS ORDERED: TOPROL XL PO ONE (20:50)
[2024-04-07] MEDS ORDERED: CONSULT PHARMACY - POTASSIUM & MAGNESIUM XX SCH (08:00)
[2024-04-07 08:08] LABS: BASOPHILS # (AUTO) 0.1 X10^3/uL (0.0-0.1); BASOPHILS % (AUTO) 0.5 % (0.2-1.0); EOSINOPHILS % (AUTO) 0.1 % (0.9-2.9); HEMATOCRIT 28.5 % (42.0-54.0); HEMOGLOBIN 9.4 g/dL (13.5-18.0); LYMPHOCYTES # (AUTO) 1.5 X10^3/uL (1.3-2.9); MEAN CORPUSCULAR HEMOGLOBIN 30.7 pg (27.0-34.0); MEAN CORPUSCULAR HGB CONC 33.1 g/dL (33.0-35.0); MEAN CORPUSCULAR VOLUME 92.7 fL (80.0-100.0); MONOCYTES # (AUTO) 2.6 x10^3/uL (0.3-0.8); MONOCYTES % (AUTO) 10.7 % (0.0-13.0); NEUTROPHILS # (AUTO) 20.4 x10^3/uL (2.2-4.8); NEUTROPHILS % (AUTO) 82.7 % (42.0-75.0); PLATELET COUNT 230 X10^3/uL (150.0-450.0); RED BLOOD COUNT 3.07 X10^6/uL (4.7-6.0); RED CELL DISTRIBUTION WIDTH 16.4 % (11.6-16.5); WHITE BLOOD COUNT 24.6 X10^3/uL (3.6-10.0)
[2024-04-07 08:19] LABS: ALANINE AMINOTRANSFERASE 10 Units/L (12-78); ALBUMIN 2.6 g/dL (3.4-5.0); ALKALINE PHOSPHATASE 65 Units/L (46-116); ASPARTATE AMINO TRANSFERASE 6 Units/L (15-37); BLOOD UREA NITROGEN 23 mg/dL (7-18); CALCIUM 8.8 mg/dL (8.5-10.1); CARBON DIOXIDE 29.2 mmol/L (21-32); COR CA(FOR HYPOALB) 9.9 mg/dL (8.5-10.1); COR NA(FOR HYPERGLY) 149 mmol/L (136-145); GLUCOSE 123 mg/dL (65-99); MAGNESIUM 2.1 mg/dL (2.0-2.9); POTASSIUM 3.9 mmol/L (3.5-5.1); SODIUM 148 mmol/L (136-145); TOTAL PROTEIN 5.1 g/dL (6.4-8.2); eGFR NON BLACK RACES > 60 (>60)
[2024-04-07 08:24] LABS: CHLORIDE 116 mmol/L (98-107)
[2024-04-07 08:47] LABS: BAND NEUTROPHILS % 18 % (0-10); PLATELET MORPHOLOGY COMMENT NORMAL (NORMAL)
[2024-04-07] MEDS: MAG-OX TAB PO SCH (09:05)
--- NOTE | 2024-04-07 09:14 | NOTE.SOAP ---
Soap Note Note for Day of Date of Exam: 04/07/24 Subjective Data Subjective Data: Patient seen for morning rounds with son at bedside. They are still waiting for a bed to be delivered to the son's house for father's discharge to his home. He has been doing well with therapy. Appetite and oral intake has been excellent. Heart rate still 90-110 over the weekend. Blood pressure still on the lower end of normal. Did have some scrotal edema yesterday with a general surgery consult placed. Objective Data Objective Data: Well-developed, well-nourished, thin, elderly male in no acute distress. Eating breakfast. Hearing intact conversation. He is wearing dentures. Heart rate is irregularly, irregular. Lungs are clear. Bowel sounds are present. Belly soft. Mood and affect are appropriate. 2+, nonpitting edema to BLE. Assessment Assessment: 1. Persistent Afib- increase diltiazem to 180 (60 TID). Continue Eliquis and metoprolol. 2. s/p small bowel resection due to incarcerated ventral hernia- PT/OT due to deconditioning. Continue swing bed status. 3. BPH- continue home meds. 4. BLE edema- IVFs are off. Monitor. May add Lasix this week x1-2 doses. Plan Plan: Plan for discharge to son's home on MAX or FRI (04/10-08/29)
[2024-04-07] MEDS: K-DUR TAB 20 MEQ PO SCH (09:59)
[2024-04-07] MEDS: TOPROL XL PO ONE (10:49)
[2024-04-07] MEDS: CARDIZEM TAB 30 MG PLAIN PO SCH (15:30)
[2024-04-07] MEDS ORDERED: TOPROL XL PO ONE (20:27)
[2024-04-07] MEDS: TOPROL XL PO SCH (21:55)
[2024-04-08 07:59] LABS: BASOPHILS % (AUTO) 0.3 % (0.2-1.0); EOSINOPHILS % (AUTO) 0.1 % (0.9-2.9); HEMATOCRIT 28.7 % (42.0-54.0); HEMOGLOBIN 9.3 g/dL (13.5-18.0); LYMPHOCYTES # (AUTO) 1.1 X10^3/uL (1.3-2.9); LYMPHOCYTES % (AUTO) 6.4 % (21.0-51.0); MEAN CORPUSCULAR HEMOGLOBIN 30.4 pg (27.0-34.0); MEAN CORPUSCULAR HGB CONC 32.5 g/dL (33.0-35.0); MEAN CORPUSCULAR VOLUME 93.6 fL (80.0-100.0); MEAN PLATELET VOLUME 8.8 fL (7.4-11.0); MONOCYTES # (AUTO) 1.8 x10^3/uL (0.3-0.8); MONOCYTES % (AUTO) 10.5 % (0.0-13.0); NEUTROPHILS # (AUTO) 14.3 x10^3/uL (2.2-4.8); NEUTROPHILS % (AUTO) 82.7 % (42.0-75.0); PLATELET COUNT 244 X10^3/uL (150.0-450.0); RED BLOOD COUNT 3.07 X10^6/uL (4.7-6.0); RED CELL DISTRIBUTION WIDTH 16.6 % (11.6-16.5); WHITE BLOOD COUNT 17.3 X10^3/uL (3.6-10.0)
[2024-04-08] MEDS: TOPROL XL PO ONE (08:26)
[2024-04-08] MEDS: NS 1,000 ML IV 1,000 ML IV SCH (08:28)
[2024-04-08] MEDS: LASIX IVP ONE ×2 (08:52→18:05)
--- NOTE | 2024-04-08 10:55 | CT ---
EXAMINATION: CHEST W/O CON HISTORY: SOB; COMPARISON: None. TECHNIQUE: Contiguous noncontrast axial CT images of the thorax. Images reviewed in the axial imaging plane wit h reformatted sagittal and coronal images.The above CT scan was done with automated exposure control and the mA and kV was adjusted to obtain quality images according to patient size. FINDINGS: Large bilateral pleural effusions in the dependent posterior pleural spaces and along the major fissu res. Patchy interstitial alveolar infiltrates in both lungs. Focal subpleural pulmonary infiltrate measuring 2.6 x 1.6 cm anterior right pulmonary apex. The central airways are patent. Details of the mediastinum/vascular structures are limited since intravenous contrast was not used. Moderate multichamber cardiac enlargement. Coronary artery calcifications. Enlarged main pulmonary outflow trunk measuring 3.5 cm diameter suspicious for pulmonary arterial hypertension. Mild fusifor m shaped ectasia ascending thoracic aorta 3.9 cm diameter, midthoracic aortic arch 3 cm, proximal fernando cending thoracic aorta 2.9 cm, distal descending thoracic aorta 3 cm. No pericardial effusion. No pathologically enlarged lymph nodes. Images through the upper abdomen demonstrate a 10 cm oval-shaped cyst central measurement 8 Hounsfiel d units right hepatic lobe. 1.7 cm low-density mass right adrenal gland central measurement 3 Hounsf ield units most consistent with a benign adrenal gland adenoma. Moderate spondylosis/dorsal kyphosis . IMPRESSION: Large bilateral pleural effusions. Subtle patchy interstitial alveolar infiltrates in both lungs. F ocal subpleural pulmonary opacity posterior right pulmonary apex. Cardiomegaly, coronary artery calcifications. Enlarged pulmonary artery suspicious for pulmonary arterial hypertension. Mild fusiform shaped ectasia thoracic aorta. THIS IS AN ELECTRONICALLY VERIFIED FINAL REPORT 04/08/2024 10:52 AM - Electronically signed by Niurka Salgado MD
--- NOTE | 2024-04-08 11:05 | RAD ---
EXAM:CHEST, PA/LAT ADULTHISTORY:COUGH, FEVER;COMPARISON:03/31/2024FINDINGS:The trachea is midline. The cardiac silhouette is unremarkable. Focal consolidation of the right and left hilar and infrahilar regions is observed the maybe on the basis of developing multifocal pneumonia and/or superimposed pulmonary edema and underlying CHF. The bony thorax is unremarkable.IMPRESSION:Bibasilar and hilar infiltrates consistent with developing pulmonary edema as well as developing multifocal pneumonia.THIS IS AN ELECTRONICALLY VERIFIED FINAL REPORT04/08/2024 11:02 AM - Electronically signed by Rob Gomez MD
[2024-04-08] MEDS: XOPENEX 1.25 MG/3 ML NEBULE NEB SCH (13:14)
--- NOTE | 2024-04-08 15:53 | CT ---
EXAM: CT ABDOMEN AND PELVIS WITHOUT CONTRAST HISTORY: ABD PAIN, S/P BOWEL SURGERY; COMPARISON: CT dated 03/27/2024. TECHNIQUE: Axial CT images were obtained through the abdomen and pelvis without contrast. Coronal reformatted im ages were included. All CT scans at this facility use dose modulation, iterative reconstruction, and/or weight based dosi ng when appropriate to reduce radiation dose to as low as reasonably achievable. FINDINGS: Please note that without the use of intravenous contrast, evaluation of organ parenchyma is limited. Moderate pleural effusions with bibasilar atelectasis. There has been interval ventral hernia repair with overlying skin solo in place. Multiple edemato us, air/fluid-filled, and mildly thickened small bowel loops in the mid abdomen. Suture material see n involving a bowel loop in the anterior mid abdomen. Mild surrounding mesenteric edema with trace l ow-density ascites. No free peritoneal air. Nondistended upstream small bowel loops and stomach. N ormal right lower quadrant appendix. Extensive colonic diverticula without surrounding inflammation. Stable simple fluid density liver cysts. Prior cholecystectomy. No biliary dilatation. Stable smal l amount of fluid along the lateral spleen. Adrenals are normal. No hydronephrosis or perinephric s tranding. 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 Severely enlarged prostate. Chronic trabeculated urinary bladder. Diffuse anasarca. No acute osseous findings. Moderate lumbar spondylosis. IMPRESSION: 1. Multiple mildly air/fluid-filled, dilated, and thickened small bowel loops in the anterior mid abd omen. No pneumatosis intestinalis or portal venous gas, however findings are concerning for bowel is chemia. No evidence of perforation. 2. Findings compatible with fluid load overload or hypoproteinemia. Diffuse anasarca with moderate l ayering pleural effusions. THIS IS AN ELECTRONICALLY VERIFIED FINAL REPORT 04/08/2024 3:46 PM - Electronically signed by Haile Mortensen MD
[2024-04-08] MEDS: VIBRAMYCIN PO SCH (20:35)
[2024-04-08] MEDS: PULMICORT NEB TX 0.5 MG NEB SCH (21:02)
[2024-04-09 06:17] LABS: EOSINOPHILS # (AUTO) 0.1 x10^3/uL (0.0-0.2); HEMATOCRIT 28.2 % (42.0-54.0); HEMOGLOBIN 9.3 g/dL (13.5-18.0); LYMPHOCYTES # (AUTO) 0.9 X10^3/uL (1.3-2.9); NEUTROPHILS # (AUTO) 13.6 x10^3/uL (2.2-4.8); RED BLOOD COUNT 3.01 X10^6/uL (4.7-6.0); WHITE BLOOD COUNT 17.3 X10^3/uL (3.6-10.0)
[2024-04-09 06:20] LABS: BASOPHILS % (AUTO) 0.1 % (0.2-1.0); EOSINOPHILS % (AUTO) 0.3 % (0.9-2.9); MEAN CORPUSCULAR VOLUME 93.8 fL (80.0-100.0); MEAN PLATELET VOLUME 9.4 fL (7.4-11.0); MONOCYTES # (AUTO) 2.8 x10^3/uL (0.3-0.8); MONOCYTES % (AUTO) 15.9 % (0.0-13.0); NEUTROPHILS % (AUTO) 78.7 % (42.0-75.0); PLATELET COUNT 241 X10^3/uL (150.0-450.0); RED CELL DISTRIBUTION WIDTH 16.8 % (11.6-16.5)
[2024-04-09 06:31] LABS: ALANINE AMINOTRANSFERASE 11 Units/L (12-78); ALBUMIN 2.6 g/dL (3.4-5.0); ALKALINE PHOSPHATASE 63 Units/L (46-116); ASPARTATE AMINO TRANSFERASE 8 Units/L (15-37); BLOOD UREA NITROGEN 32 mg/dL (7-18); CALCIUM 9.4 mg/dL (8.5-10.1); CARBON DIOXIDE 33.2 mmol/L (21-32); COR CA(FOR HYPOALB) 10.5 mg/dL (8.5-10.1); CREATININE 0.95 mg/dL (0.70-1.30); GLUCOSE 125 mg/dL (65-99); TOTAL PROTEIN 5.1 g/dL (6.4-8.2); eGFR NON BLACK RACES > 60 (>60)
[2024-04-09 06:36] LABS: CHLORIDE 114 mmol/L (98-107); COR NA(FOR HYPERGLY) 150 mmol/L (136-145); POTASSIUM 3.9 mmol/L (3.5-5.1); SODIUM 149 mmol/L (136-145)
[2024-04-09] MEDS ORDERED: TOPROL XL PO ONE (08:19)
[2024-04-09 09:37] LABS: BILIRUBIN,URINE NEGATIVE (NEGATIVE); BLOOD/HEMOGLOBIN,URINE 1+ (NEGATIVE); GLUCOSE, URINE NEGATIVE (NEGATIVE); KETONES,URINE NEGATIVE (NEGATIVE); LEUKOCYTE ESTERASE ,URINE NEGATIVE (NEGATIVE); NITRITES,URINE NEGATIVE (NEGATIVE); PROTEIN,URINE 2+ (NEGATIVE); UROBILINOGEN,URINE NORMAL (NORMAL)
[2024-04-09] MEDS: LASIX IVP SCH (09:39)
[2024-04-09 10:00] LABS: APPEARANCE,URINE CLEAR (CLEAR); BACTERIA,URINE TRACE /HPF (NEGATIVE); COLOR,URINE YELLOW (YELLOW); RENAL EPITHELIAL CELLS,URINE FEW /HPF (NEGATIVE); SQUAMOUS EPITHELIAL CELL,UR NEGATIVE /HPF (NEGATIVE)
[2024-04-09 10:01] LABS: HYALINE CASTS, URINE FEW /LPF (NEGATIVE)
[2024-04-09] MEDS: VIBRAMYCIN 100 MG in D5W 250 ML IV 250 ML IV SCH (10:45)
[2024-04-09] MEDS: NS 1,000 ML IV 1,000 ML IV SCH (10:46)
[2024-04-09 11:46] LABS: BLOOD UREA NITROGEN 33 mg/dL (7-18); CALCIUM 9.1 mg/dL (8.5-10.1); CARBON DIOXIDE 31.5 mmol/L (21-32); CHLORIDE 112 mmol/L (98-107); COR NA(FOR HYPERGLY) 150 mmol/L (136-145); CREATININE 0.82 mg/dL (0.70-1.30); GLUCOSE 167 mg/dL (65-99); POTASSIUM 3.8 mmol/L (3.5-5.1); SODIUM 148 mmol/L (136-145); eGFR NON BLACK RACES > 60 (>60)
--- NOTE | 2024-04-09 12:51 | DR.PROGNOT ---
HOSPITAL PROGRESS NOTE Progress Note for Day of: Progress Note Date: 04/09/24 Chief Complaint Chief Complaint: Patient is short of breath and congested, denies any significant abdominal pain, no nausea or vomiting. No bowel movement for 2 days, appetite is poor. White count is 17.3, hemoglobin 9.3, sodium 148, BUN 33, creatinine 0.8, lactic acid 0.4. Abdominal CT showed some changes in the bowel which is consistent with the recent bowel resection and inflammatory changes from the incarcerated hernia. Past Medical Family Social History Allergies: Allergies No Known Drug Allergies Allergy (Verified 08/18/20 08:17) Review Of Systems Changes in ROS: see HPI Vital Signs Vital Signs: Vital Signs Temperature 97.4 F Pulse Rate [Brachial] 88 Pulse Rate 82 Pulse Rate 101 Respiratory Rate 19 Blood Pressure [Left Arm] 101/58 O2 Sat by Pulse Oximetry 94 O2 Sat by Pulse Oximetry 94 O2 Sat by Pulse Oximetry 95 Physical Exam Oriented: Normal Eyes: Normal Ear: Normal Nose: Normal Throat: Normal Respiratory: Rhonchi and OTHER (Bilateral rhonchi.) Cardiovascular: Other (A Fib) : Other (scrotal edema) GI:Auscultation: Decreased GI: Tenderness: Other (Full abdomen with mild to moderate mid abdominal tenderness, hypoactive bowel sounds.) Speech Pattern: Appropriate and Unclear Laboratory and Diagnostics 04/09/24 05:25 04/09/24 11:28 Labs: 04/08/24 09:28 Sputum - Expectorated Sputum Sputum Culture - Preliminary 04/08/24 09:28 Sputum - Expectorated Sputum - Final Laboratory WBC 17.3 X10^3/uL (3.6-10.0) H 04/09/24 05:25 RBC 3.01 X10^6/uL (4.7-6.0) L 04/09/24 05:25 Hgb 9.3 g/dL (13.5-18.0) L 04/09/24 05:25 Hct 28.2 % (42.0-54.0) L 04/09/24 05:25 MCV 93.8 fL (80.0-100.0) 04/09/24 05:25 MCH 31.0 pg (27.0-34.0) 04/09/24 05:25 MCHC 33.0 g/dL (33.0-35.0) 04/09/24 05:25 RDW 16.8 % (11.6-16.5) H 04/09/24 05:25 Plt Count 241 X10^3/uL (150.0-450.0) 04/09/24 05:25 Plt Count Comment Adequate (ADEQUATE) 04/07/24 07:57 MPV 9.4 fL (7.4-11.0) 04/09/24 05:25 Neut % (Auto) 78.7 % (42.0-75.0) H 04/09/24 05:25 Lymph % (Auto) 5.0 % (21.0-51.0) L 04/09/24 05:25 [place] % (Auto) 15.9 % (0.0-13.0) H 04/09/24 05:25 Eos % (Auto) 0.3 % (0.9-2.9) L 04/09/24 05:25 Baso % (Auto) 0.1 % (0.2-1.0) L 04/09/24 05:25 Neut # (Auto) 13.6 x10^3/uL (2.2-4.8) H 04/09/24 05:25 Lymph # (Auto) 0.9 X10^3/uL (1.3-2.9) L 04/09/24 05:25 [place] # (Auto) 2.8 x10^3/uL (0.3-0.8) H 04/09/24 05:25 Eos # (Auto) 0.1 x10^3/uL (0.0-0.2) 04/09/24 05:25 Baso # (Auto) 0.0 X10^3/uL (0.0-0.1) 04/09/24 05:25 Absolute Nucleated RBC 0.1 /100WBC 04/09/24 05:25 Total Counted 100 04/07/24 07:57 Neutrophils % (Manual) 69 % (39-76) 04/07/24 07:57 Band Neutrophils % 18 % (0-10) H 04/07/24 07:57 Lymphocytes % (Manual) 7 % (13-43) L 04/07/24 07:57 Monocytes % (Manual) 6 % (4-9) 04/07/24 07:57 Atypical Lymphocytes Few 04/03/24 05:29 Plt Morphology Comment Normal (NORMAL) 04/07/24 07:57 RBC Morphology Normal (NORMAL) 04/07/24 07:57 Sodium 148 mmol/L (136-145) H 04/09/24 11:28 Corrected Sodium 150 mmol/L (136-145) H 04/09/24 11:28 Potassium 3.8 mmol/L (3.5-5.1) 04/09/24 11:28 Chloride 112 mmol/L (98-107) H 04/09/24 11:28 Carbon Dioxide 31.5 mmol/L (21-32) 04/09/24 11:28 BUN 33 mg/dL (7-18) H 04/09/24 11:28 Creatinine 0.82 mg/dL (0.70-1.30) 04/09/24 11:28 Est GFR (MDRD) Af Amer > 60 (>60) 04/09/24 11:28 Est GFR (MDRD) Non-Af > 60 (>60) 04/09/24 11:28 Glucose 167 mg/dL (65-99) H 04/09/24 11:28 Lactic Acid 0.4 mmol/L (0.4-2.0) 04/08/24 09:30 Calcium 9.1 mg/dL (8.5-10.1) 04/09/24 11:28 Corrected Calcium 10.5 mg/dL (8.5-10.1) H 04/09/24 05:25 Magnesium 2.1 mg/dL (2.0-2.9) 04/07/24 07:57 Total Bilirubin 0.30 mg/dL (0.2-1.0) 04/09/24 05:25 AST 8 Units/L (15-37) L 04/09/24 05:25 ALT 11 Units/L (12-78) L 04/09/24 05:25 Alkaline Phosphatase 63 Units/L (46-116) 04/09/24 05:25 Total Protein 5.1 g/dL (6.4-8.2) L 04/09/24 05:25 Albumin 2.6 g/dL (3.4-5.0) L 04/09/24 05:25 Globulin 2.5 g/dL (2.5-4.5) 04/09/24 05:25 Albumin/Globulin Ratio 1.0 Ratio (1.1-2.1) L 04/09/24 05:25 Specimen Type Catherized urine 04/09/24 09:15 Urine Color Yellow (YELLOW) 04/09/24 09:15 Urine Appearance Clear (CLEAR) 04/09/24 09:15 Urine pH 6.0 (5.0 - 8.0) 04/09/24 09:15 Ur Specific [place] 1.025 (1.000-1.030) 04/09/24 09:15 Urine Protein 2+ (NEGATIVE) 04/09/24 09:15 Urine Glucose (UA) Negative (NEGATIVE) 04/09/24 09:15 Urine Ketones Negative (NEGATIVE) 04/09/24 09:15 Urine Blood 1+ (NEGATIVE) 04/09/24 09:15 Urine Nitrite Negative (NEGATIVE) 04/09/24 09:15 Urine Bilirubin Negative (NEGATIVE) 04/09/24 09:15 Urine Urobilinogen Normal (NORMAL) 04/09/24 09:15 Ur Leukocyte Esterase Negative (NEGATIVE) 04/09/24 09:15 Urine RBC 3-5 /HPF (0-3) A 04/09/24 09:15 Urine WBC None seen /HPF (0-5) 04/09/24 09:15 Ur Squamous Epith Cells Negative /HPF (NEGATIVE) 04/09/24 09:15 Ur Renal Epithelial Cell Few /HPF (NEGATIVE) 04/09/24 09:15 Urine Bacteria Trace /HPF (NEGATIVE) 04/09/24 09:15 Hyaline Casts Few /LPF (NEGATIVE) 04/09/24 09:15 Urine Mucus Rare /HPF (NEGATIVE) 04/09/24 09:15 Ur Culture Indicated? No/not indicated 04/09/24 09:15 Resp Viral Panel (PCR) See scanned report 04/08/24 09:18 Assessment and Plan 1: s/p abdominal surgery . SB resection for ischemic bowel within umbilical hernia . No acute abdominal changes right now. Will follow with you. 2: Possible pneumonia, patient is on IV antibiotics and pulmonary care 3: A-fib managed by Dr. Maldonado.
[2024-04-09 18:42] LABS: BLOOD UREA NITROGEN 35 mg/dL (7-18); CALCIUM 9.2 mg/dL (8.5-10.1); CARBON DIOXIDE 20.1 mmol/L (21-32); CHLORIDE 114 mmol/L (98-107); COR NA(FOR HYPERGLY) 147 mmol/L (136-145); CREATININE 0.86 mg/dL (0.70-1.30); GLUCOSE 124 mg/dL (65-99); SODIUM 146 mmol/L (136-145); eGFR NON BLACK RACES > 60 (>60)
[2024-04-09 18:46] LABS: POTASSIUM 4.9 mmol/L (3.5-5.1)
[2024-04-09 19:58] VITALS: RESP 20; TEMP 98.7
[2024-04-09] MEDS: TOPROL XL PO ONE (21:41)
[2024-04-09 23:18] LABS: BLOOD UREA NITROGEN 34 mg/dL (7-18); CALCIUM 9.2 mg/dL (8.5-10.1); CARBON DIOXIDE 34.8 mmol/L (21-32); CHLORIDE 114 mmol/L (98-107); COR NA(FOR HYPERGLY) 151 mmol/L (136-145); CREATININE 0.86 mg/dL (0.70-1.30); GLUCOSE 142 mg/dL (65-99); POTASSIUM 3.6 mmol/L (3.5-5.1); eGFR NON BLACK RACES > 60 (>60)
[2024-04-09 23:21] LABS: SODIUM 150 mmol/L (136-145)
[2024-04-10] MEDS: D5 1/2 NS 1,000 ML 1,000 ML IV SCH (01:05)
[2024-04-10] MEDS: ADRENALINE CHL INJ (ABBOJECT) IVP ONE (04:00)
[2024-04-10 04:05] LABS: ABG BASE EXCESS 7.8 mmol/L (-2.0-2.0)
[2024-04-10 04:06] LABS: ABG HCO3 33.7 mmol/L (22-26)
[2024-04-10] MEDS: DOPAMINE IV PREMIX 400 MG/250 ML 400 MG/250 ML BAG IV PRN (04:06)
[2024-04-10 04:09] LABS: BLOOD UREA NITROGEN 35 mg/dL (7-18); CHLORIDE 113 mmol/L (98-107); COR NA(FOR HYPERGLY) 150 mmol/L (136-145); CREATININE 1.06 mg/dL (0.70-1.30); GLUCOSE 244 mg/dL (65-99); POTASSIUM 4.3 mmol/L (3.5-5.1); SODIUM 147 mmol/L (136-145); eGFR NON BLACK RACES > 60 (>60)
--- NOTE | 2024-04-10 04:15 | EKG ---
Test Reason : bradycardia Blood Pressure : */* mmHG Vent. Rate : 102 BPM Atrial Rate : * BPM P-R Int : * ms QRS Dur : 76 ms QT Int : 316 ms P-R-T Axes : * -31 59 degrees QTc Int : 411 ms Atrial fibrillation with rapid ventricular response Left axis deviation Nonspecific ST abnormality Abnormal ECG When compared with ECG of 31-MAR-2024 08:50, Questionable change in QRS duration Confirmed by Luis A Slater MD ([id number]) on 04/10/2024 6:40:35 AM Referred By: Confirmed By: Luis A Slater MD
[2024-04-10 04:16] LABS: CALCIUM 9.2 mg/dL (8.5-10.1)
[2024-04-10] MEDS ORDERED: PRECEDEX 400 MCG/100 ML *PREMIX 400 MCG/100 ML INFUS..BTL IV ONE (04:30)
--- NOTE | 2024-04-10 04:30 | RAD ---
PROCEDURE: Chest X-ray 1 View.HISTORY: INTUBATION-ET TUBE PLACEMENT ; .TECHNIQUE: AP view.COMPARISON: 04/08/2024.TECHNICAL QUALITY: Satisfactory.FINDINGS:Endotracheal tube tip 3.5 cm above the caro in good position.Normal-sized heart.Mediastinum and hilar regions show no masses or lymphadenopathy.Normal central vascularity.Some increasing consolidation right base and improvement at the left base. No definite pleural fluid.No acute bony abnormality.IMPRESSION:1. Good endotracheal tube placement.2. Changing pneumonia as described above.THIS IS AN ELECTRONICALLY VERIFIED FINAL REPORT04/10/2024 4:26 AM - Electronically signed by Obinna Cuba MD
[2024-04-10] MEDS: PRECEDEX 400 MCG/100 ML *PREMIX 400 MCG/100 ML INFUS..BTL IV PRN (04:39)
[2024-04-10] MEDS: TOPROL XL PO ONE (05:38)
[2024-04-10] MEDS: LASIX IVP ONE ×2 (05:38)
[2024-04-10 06:13] LABS: ABG BASE EXCESS 10.1 mmol/L (-2.0-2.0)
[2024-04-10 06:57] VITALS: BP 114/56; PULSE 111; O2SAT 99
[2024-04-10] MEDS ORDERED: DOPAMINE IV PREMIX 400 MG/250 ML 400 MG/250 ML BAG IV ONE (08:15)
--- NOTE | 2024-04-10 08:25 | RAD ---
EXAM:KUBHISTORY:Small-bowel obstructionCOMPARISON:CT abdomen pelvis 04/08/2024FINDINGS:Surgical solo are present in the midabdomen. Surgical clips are present in the right upper quadrant from prior cholecystectomy. Abdominal gas pattern is nonspecific and nonobstructive. No abnormal masses or abnormal calcifications are identified. Regional skeleton is intact.IMPRESSION:Nonspecific nonobstructive bowel gas patternTHIS IS AN ELECTRONICALLY VERIFIED FINAL REPORT04/10/2024 8:22 AM - Electronically signed by Kevin Edouard MD
--- NOTE | 2024-04-14 16:25 | PCM.DCPLAN ---
DISCHARGE SUMMARY Admission Date Date of Admission: 04/01/24 Discharge Date Discharge Date: 04/10/24 Admission Diagnoses (1) Bilateral leg weakness: Status: Acute (2) History of hernia repair: Status: Acute (3) Atrial fibrillation: Status: Acute (4) BPH (benign prostatic hyperplasia): Status: Acute (5) Septic shock: Status: Acute (6) Acute hypercapnic respiratory failure: Status: Acute (7) Hospital-acquired pneumonia: Status: Acute Discharge Medications Discharge Medications: Prescriptions: Hospital Course Latest Lab Results: Laboratory Last Values WBC 17.3 X10^3/uL (3.6-10.0) H 04/09/24 05:25 RBC 3.01 X10^6/uL (4.7-6.0) L 04/09/24 05:25 Hgb 9.3 g/dL (13.5-18.0) L 04/09/24 05:25 Hct 28.2 % (42.0-54.0) L 04/09/24 05:25 MCV 93.8 fL (80.0-100.0) 04/09/24 05:25 MCH 31.0 pg (27.0-34.0) 04/09/24 05:25 MCHC 33.0 g/dL (33.0-35.0) 04/09/24 05:25 RDW 16.8 % (11.6-16.5) H 04/09/24 05:25 Plt Count 241 X10^3/uL (150.0-450.0) 04/09/24 05:25 Plt Count Comment Adequate (ADEQUATE) 04/07/24 07:57 MPV 9.4 fL (7.4-11.0) 04/09/24 05:25 Neut % (Auto) 78.7 % (42.0-75.0) H 04/09/24 05:25 Lymph % (Auto) 5.0 % (21.0-51.0) L 04/09/24 05:25 [place] % (Auto) 15.9 % (0.0-13.0) H 04/09/24 05:25 Eos % (Auto) 0.3 % (0.9-2.9) L 04/09/24 05:25 Baso % (Auto) 0.1 % (0.2-1.0) L 04/09/24 05:25 Neut # (Auto) 13.6 x10^3/uL (2.2-4.8) H 04/09/24 05:25 Lymph # (Auto) 0.9 X10^3/uL (1.3-2.9) L 04/09/24 05:25 [place] # (Auto) 2.8 x10^3/uL (0.3-0.8) H 04/09/24 05:25 Eos # (Auto) 0.1 x10^3/uL (0.0-0.2) 04/09/24 05:25 Baso # (Auto) 0.0 X10^3/uL (0.0-0.1) 04/09/24 05:25 Absolute Nucleated RBC 0.1 /100WBC 04/09/24 05:25 Total Counted 100 04/07/24 07:57 Neutrophils % (Manual) 69 % (39-76) 04/07/24 07:57 Band Neutrophils % 18 % (0-10) H 04/07/24 07:57 Lymphocytes % (Manual) 7 % (13-43) L 04/07/24 07:57 Monocytes % (Manual) 6 % (4-9) 04/07/24 07:57 Atypical Lymphocytes Few 04/03/24 05:29 Plt Morphology Comment Normal (NORMAL) 04/07/24 07:57 RBC Morphology Normal (NORMAL) 04/07/24 07:57 Sample Site Lb 04/10/24 06:15 ABG pH 7.440 (7.35-7.45) 04/10/24 06:15 ABG pCO2 53.0 mmHg (35.0-45.0) H* 04/10/24 06:15 ABG pO2 60.0 mmHg (80.0-100.0) L 04/10/24 06:15 ABG HCO3 36.0 mmol/L (22-26) H* 04/10/24 06:15 ABG O2 Saturation 92.0 % (90-100) 04/10/24 06:15 ABG Base Excess 10.1 mmol/L (-2.0-2.0) H 04/10/24 06:15 Hao Test Na 04/10/24 06:15 A-a Gradient 230.0 mmHg 04/10/24 06:15 FiO2 50.0 04/10/24 06:15 Blood Gas Comments Milli well sw 04/10/24 06:15 Sodium 147 mmol/L (136-145) H 04/10/24 03:45 Corrected Sodium 150 mmol/L (136-145) H 04/10/24 03:45 Potassium 4.3 mmol/L (3.5-5.1) 04/10/24 03:45 Chloride 113 mmol/L (98-107) H 04/10/24 03:45 Carbon Dioxide 32.0 mmol/L (21-32) 04/10/24 03:45 BUN 35 mg/dL (7-18) H 04/10/24 03:45 Creatinine 1.06 mg/dL (0.70-1.30) 04/10/24 03:45 Est GFR (MDRD) Af Amer > 60 (>60) 04/10/24 03:45 Est GFR (MDRD) Non-Af > 60 (>60) 04/10/24 03:45 Glucose 244 mg/dL (65-99) H 04/10/24 03:45 POC Glucose (mg/dL) 212 mg/dL (65-99) H 04/10/24 03:30 Lactic Acid 0.4 mmol/L (0.4-2.0) 04/08/24 09:30 Calcium 9.2 mg/dL (8.5-10.1) 04/10/24 03:45 Corrected Calcium 10.5 mg/dL (8.5-10.1) H 04/09/24 05:25 Magnesium 2.1 mg/dL (2.0-2.9) 04/07/24 07:57 Total Bilirubin 0.30 mg/dL (0.2-1.0) 04/09/24 05:25 AST 8 Units/L (15-37) L 04/09/24 05:25 ALT 11 Units/L (12-78) L 04/09/24 05:25 Alkaline Phosphatase 63 Units/L (46-116) 04/09/24 05:25 Troponin I High Sens 6.2 ng/L (4.0-60.0) 04/10/24 03:45 Total Protein 5.1 g/dL (6.4-8.2) L 04/09/24 05:25 Albumin 2.6 g/dL (3.4-5.0) L 04/09/24 05:25 Globulin 2.5 g/dL (2.5-4.5) 04/09/24 05:25 Albumin/Globulin Ratio 1.0 Ratio (1.1-2.1) L 04/09/24 05:25 Specimen Type Catherized urine 04/09/24 09:15 Urine Color Yellow (YELLOW) 04/09/24 09:15 Urine Appearance Clear (CLEAR) 04/09/24 09:15 Urine pH 6.0 (5.0 - 8.0) 04/09/24 09:15 Ur Specific [place] 1.025 (1.000-1.030) 04/09/24 09:15 Urine Protein 2+ (NEGATIVE) 04/09/24 09:15 Urine Glucose (UA) Negative (NEGATIVE) 04/09/24 09:15 Urine Ketones Negative (NEGATIVE) 04/09/24 09:15 Urine Blood 1+ (NEGATIVE) 04/09/24 09:15 Urine Nitrite Negative (NEGATIVE) 04/09/24 09:15 Urine Bilirubin Negative (NEGATIVE) 04/09/24 09:15 Urine Urobilinogen Normal (NORMAL) 04/09/24 09:15 Ur Leukocyte Esterase Negative (NEGATIVE) 04/09/24 09:15 Urine RBC 3-5 /HPF (0-3) A 04/09/24 09:15 Urine WBC None seen /HPF (0-5) 04/09/24 09:15 Ur Squamous Epith Cells Negative /HPF (NEGATIVE) 04/09/24 09:15 Ur Renal Epithelial Cell Few /HPF (NEGATIVE) 04/09/24 09:15 Urine Bacteria Trace /HPF (NEGATIVE) 04/09/24 09:15 Hyaline Casts Few /LPF (NEGATIVE) 04/09/24 09:15 Urine Mucus Rare /HPF (NEGATIVE) 04/09/24 09:15 Ur Culture Indicated? No/not indicated 04/09/24 09:15 Resp Viral Panel (PCR) See scanned report 04/08/24 09:18 Hospital Course: Patient originally admitted to the hospital due to incarcerated umbilical hernia with partial small bowel resection and hernia repair. He was doing well and it was decided that he would switch to swing bed status for rehab. Was steadily progressing until approximately 3 days ago. Became very edematous and short of breath. Was not able to ambulate as well and mentation seem to decline. Became unresponsive overnight and code was called. He was intubated and placed in the ICU on mechanical ventilation. He will be discharged from swing bed status and placed in an inpatient critical care status. This is due to acute hypercapnic respiratory failure with bilateral hospital-acquired pneumonia.
== END 2024-04-10 06:59 | disposition critical access hospital (66) | DRG 308 ==
LOC: MED/SURG 11:00 → ICU 04-10 04:57
PROVIDERS: ADMIT Family Medicine; ATTEND Family Medicine
DX: Z16.11 Resistance to penicillins; Z98.890 Other specified postprocedural states; J15.0 Pneumonia due to Klebsiella pneumoniae; E83.42 Hypomagnesemia; R00.1 Bradycardia, unspecified; Y95 Nosocomial condition; B95.62 Methicillin resistant Staphylococcus aureus infection as the cause of diseases classified elsewhere; R60.0 Localized edema; N40.1 Benign prostatic hyperplasia with lower urinary tract symptoms; R94.31 Abnormal electrocardiogram [ECG] [EKG]; Z51.89 Encounter for other specified aftercare; I48.19 Other persistent atrial fibrillation; Z78.1 Physical restraint status; M62.81 Muscle weakness (generalized); Z29.89 Encounter for other specified prophylactic measures; E87.0 Hyperosmolality and hypernatremia; Z16.19 Resistance to other specified beta lactam antibiotics; N39.43 Post-void dribbling; R06.02 Shortness of breath; N50.89 Other specified disorders of the male genital organs; R26.81 Unsteadiness on feet; R10.84 Generalized abdominal pain

== ENCOUNTER 2024-04-10 07:00 | Inpatient (IN) ==
[2024-04-10] MEDS ORDERED: DUKE'S Magic Mouthwash (nyst/dex/ben/doxyc) MT PRN (08:27)
[2024-04-10] MEDS: DOPAMINE IV PREMIX 400 MG/250 ML 400 MG/250 ML BAG IV PRN (08:30)
[2024-04-10] MEDS: PRECEDEX 400 MCG/100 ML *PREMIX 400 MCG/100 ML INFUS..BTL IV PRN (08:41)
[2024-04-10] MEDS: ZOFRAN INJ 4 MG VIAL IVP PRN (08:51)
[2024-04-10] MEDS: DILAUDID INJ IVP PRN (08:51)
[2024-04-10] MEDS: LASIX IVP SCH (08:54)
[2024-04-10] MEDS ORDERED: PHARMACY CONSULT - TPN XX SCH (09:00)
[2024-04-10] MEDS ORDERED: PHARMACY CONSULT - LOVENOX XX SCH (09:00)
[2024-04-10] MEDS: XOPENEX 1.25 MG/3 ML NEBULE NEB SCH (09:07)
[2024-04-10] MEDS: PULMICORT NEB TX 0.5 MG NEB SCH (09:07)
--- NOTE | 2024-04-10 09:11 | RAD ---
EXAM:Portable chestHISTORY:Central line placementCOMPARISON:04/10/2024 4:03 a.m. chest x-ray, CT chest 05/09/2024FINDINGS:There is new right subclavian line with its tip in the expected position of the superior vena cava near the cavoatrial junction. No pneumothorax. There is an endotracheal tube just above the caro. Heart size is normal. Radha are normal. Haziness in both lung ayers related to bilateral pleural effusions [id number]. No definite acute alveolar infiltrates or areas of consolidation identified. Bony thorax is unremarkable.IMPRESSION:Right subclavian line tip in the expected position of the superior vena cava near the cavoatrial junction. No pneumothoraxBilateral large pleural effusions [id number] definite acute alveolar infiltratesTHIS IS AN ELECTRONICALLY VERIFIED FINAL REPORT04/10/2024 9:08 AM - Electronically signed by Kevin Edouard MD
[2024-04-10] MEDS: LUBIFRESH PM EYE OINTMENT AFFEYE SCH (09:12)
[2024-04-10] MEDS: TYGACIL 50 MG VIAL 100 MG in NS 100 ML IV 100 ML IV ONE (09:14)
[2024-04-10] MEDS: LOVENOX INJ 40 MG SYR SC SCH (09:15)
[2024-04-10] MEDS: PROTONIX INJ 40 MG VIAL IVP SCH (09:15)
[2024-04-10] MEDS: CARDIZEM INJ 125 MG VIAL 125 MG in NS 100 ML IV 100 ML IV PRN (09:44)
[2024-04-10] MEDS ORDERED: DEXTROSE 10% 1,000 ML IV PRN (10:14)
[2024-04-10] MEDS: DRUG FILTER EXTENSION SET ONE ×2 (11:00→23:21)
--- NOTE | 2024-04-10 12:46 | DR.H&P ---
H&P History & Physical for Day of: H&P Date: 04/10/24 Chief Complaint Chief Complaint: Respiratory failure History of Present Illness History of Present Illness: Patient originally in the hospital on swing bed status following partial bowel resection due to incarcerated ventral hernia. Over the last couple days his white count elevated, he showed signs of fluid overload, and was becoming weaker. Last night he became bradycardic and unresponsive. Code was called and patient underwent 1 round of chest compressions, dose of epinephrine, started on a dopamine drip, and intubated by ER provider. Chest x-ray this morning showed resolving left basilar pneumonia with worsening right side. Sputum culture in our facility shows resistance to tetracyclines while the rapid AIT swab showed variable activity. Doxycycline was converted from p.o. to IV yesterday. He is currently in A-fib with tachycardia, much improved from overnight. Blood pressure stable on dopamine drip. Surgery is planning on putting in a central line. PMH: BPH, persistent A-fib. PSH: Hernia repair, partial small bowel resection. ROS: Unobtainable due to intubation PE: Thin, elderly male intubated. Heart irregularly irregular, tachycardic. Lungs diminished with vent sounds. Belly is soft with bowel sounds present. Currently sedated. Still very edematous throughout but improved. Past Medical History Past Medical History: Arthritis Past Surgical History Surgical History: Abdominal Surgery, Appendectomy, Cholecystectomy, Joint Rep lacement and Other Additional Surgical History: HERNIA REPAIR Medications Home Medications: Home Medications Medication Instructions Recorded Confirmed Type tamsulosin 0.4 mg capsule (Flomax) 0.4 mg PO DAILY 02/23/20 04/01/24 History finasteride 5 mg tablet 5 mg PO DAILY 03/27/24 04/01/24 History Allergies Allergies Allergy/AdvReac Type Severity Reaction Status Date / Time No Known Drug Allergies Allergy Verified 08/18/20 08:17 Labs Labs: Laboratory POC Glucose (mg/dL) 160 mg/dL (65-99) H 04/10/24 11:25 Magnesium 2.2 mg/dL (2.0-2.9) 04/10/24 10:09 Troponin I High Sens 11.1 ng/L (4.0-60.0) 04/10/24 10:09 Physical Exam Vital Signs: Vital Signs Temperature 98.9 F Temperature 98.9 F Pulse Rate [Radial] 105 Pulse Rate [Radial] 106 Pulse Rate [Radial] 110 Pulse Rate [Radial] 113 Pulse Rate 106 Pulse Rate 103 Pulse Rate 108 Pulse Rate 105 Pulse Rate 105 Pulse Rate 109 Pulse Rate 107 Pulse Rate 117 Pulse Rate 106 Pulse Rate 100 Pulse Rate 102 Pulse Rate 102 Pulse Rate 101 Pulse Rate 106 Pulse Rate 107 Pulse Rate 116 Pulse Rate 102 Pulse Rate 108 Pulse Rate 104 Pulse Rate 107 Pulse Rate 115 Pulse Rate 110 Respiratory Rate 16 Respiratory Rate 16 Respiratory Rate 16 Respiratory Rate 16 Respiratory Rate 16 Respiratory Rate 16 Respiratory Rate 16 Respiratory Rate 16 Respiratory Rate 16 Respiratory Rate 16 Respiratory Rate 16 Respiratory Rate 16 Respiratory Rate 16 Respiratory Rate 16 Respiratory Rate 16 Respiratory Rate 16 Respiratory Rate 16 Respiratory Rate 16 Respiratory Rate 20 Respiratory Rate 17 Respiratory Rate 17 Respiratory Rate 16 Respiratory Rate 16 Blood Pressure [Left Arm] 115/57 Blood Pressure [Left Arm] 109/58 Blood Pressure [Left Arm] 107/59 Blood Pressure [Left Arm] 128/60 Blood Pressure 120/60 Blood Pressure 115/63 Blood Pressure 115/61 Blood Pressure 115/57 Blood Pressure 122/63 Blood Pressure 112/58 Blood Pressure 103/55 Blood Pressure 113/56 Blood Pressure 109/59 Blood Pressure 109/59 Blood Pressure 109/58 Blood Pressure 117/57 Blood Pressure 110/61 Blood Pressure 108/57 Blood Pressure 101/57 Blood Pressure 110/51 Blood Pressure 107/59 Blood Pressure 107/59 Blood Pressure 114/56 O2 Sat by Pulse Oximetry 99 O2 Sat by Pulse Oximetry 99 O2 Sat by Pulse Oximetry 98 O2 Sat by Pulse Oximetry 98 O2 Sat by Pulse Oximetry 98 O2 Sat by Pulse Oximetry 98 O2 Sat by Pulse Oximetry 99 O2 Sat by Pulse Oximetry 99 O2 Sat by Pulse Oximetry 99 O2 Sat by Pulse Oximetry 99 O2 Sat by Pulse Oximetry 100 O2 Sat by Pulse Oximetry 100 O2 Sat by Pulse Oximetry 99 O2 Sat by Pulse Oximetry 99 O2 Sat by Pulse Oximetry 98 O2 Sat by Pulse Oximetry 98 O2 Sat by Pulse Oximetry 98 O2 Sat by Pulse Oximetry 96 O2 Sat by Pulse Oximetry 97 O2 Sat by Pulse Oximetry 92 O2 Sat by Pulse Oximetry 98 O2 Sat by Pulse Oximetry 98 O2 Sat by Pulse Oximetry 96 O2 Sat by Pulse Oximetry 100 O2 Sat by Pulse Oximetry 100 O2 Sat by Pulse Oximetry 98 Assessment/Plan (1) Acute hypercapnic respiratory failure: Narrative Support Text: Vent protocol. Status: Acute (2) Septic shock: Narrative Support Text: Due to Klebsiella and MRSA pneumonia has. With acute respiratory failure and hypotension. Status: Acute (3) Hospital-acquired pneumonia: Narrative Support Text: Switch from doxycycline to Tygacil Status: Acute (4) Klebsiella pneumoniae pneumonia: Qualifiers: Laterality: bilateral Lung location: lower lobe of lung Qualified Code(s): J15.0 - Pneumonia due to Klebsiella pneumoniae Narrative Support Text: See above Status: Acute (5) MRSA pneumonia: Qualifiers: Laterality: bilateral Lung location: lower lobe of lung Qualified Code(s): J15.212 - Pneumonia due to Methicillin resistant Staphylococcus aureus Narrative Support Text: See above Status: Acute (6) Atrial fibrillation: Qualifiers: Atrial fibrillation type: unspecified chronic Qualified Code(s): I48.20 - Chronic atrial fibrillation, unspecified Narrative Support Text: Stop metoprolol and use diltiazem drip. Switch from Eliquis to Lovenox. Gentle IV hydration Status: Acute
[2024-04-10 17:56] LABS: BLOOD UREA NITROGEN 40 mg/dL (7-18); CALCIUM 8.9 mg/dL (8.5-10.1); CARBON DIOXIDE 35.7 mmol/L (21-32); CHLORIDE 111 mmol/L (98-107); COR NA(FOR HYPERGLY) 150 mmol/L (136-145); CREATININE 0.92 mg/dL (0.70-1.30); GLUCOSE 180 mg/dL (65-99); POTASSIUM 3.2 mmol/L (3.5-5.1); SODIUM 148 mmol/L (136-145); eGFR NON BLACK RACES > 60 (>60)
[2024-04-10 18:20] VITALS: BMI 25.3
[2024-04-10] MEDS: TYGACIL 50 MG VIAL 50 MG in NS 100 ML IV 100 ML IV SCH (19:56)
[2024-04-10 23:12] LABS: BLOOD UREA NITROGEN 42 mg/dL (7-18); CALCIUM 8.6 mg/dL (8.5-10.1); CARBON DIOXIDE 38.2 mmol/L (21-32); CHLORIDE 110 mmol/L (98-107); COR NA(FOR HYPERGLY) 150 mmol/L (136-145); CREATININE 1.04 mg/dL (0.70-1.30); GLUCOSE 166 mg/dL (65-99); SODIUM 148 mmol/L (136-145); eGFR NON BLACK RACES > 60 (>60)
[2024-04-10 23:13] LABS: POTASSIUM 2.9 mmol/L (3.5-5.1)
[2024-04-10] MEDS ORDERED: CONSULT PHARMACY - POTASSIUM & MAGNESIUM XX SCH (23:45)
[2024-04-11] MEDS: VERSED 100 MG in NS 100 ML IV 80 ML IV PRN (03:14)
[2024-04-11 05:36] LABS: ABG HCO3 39.3 mmol/L (22-26)
[2024-04-11] MEDS: K-RIDER 10 MEQ/100 ML WATER 10 MEQ/100 ML BAG IV SCH (05:44)
[2024-04-11 06:01] LABS: BASOPHILS % (AUTO) 0.3 % (0.2-1.0); EOSINOPHILS % (AUTO) 0.1 % (0.9-2.9); HEMATOCRIT 30.8 % (42.0-54.0); HEMOGLOBIN 10.5 g/dL (13.5-18.0); LYMPHOCYTES # (AUTO) 1.8 X10^3/uL (1.3-2.9); LYMPHOCYTES % (AUTO) 10.9 % (21.0-51.0); MEAN CORPUSCULAR HEMOGLOBIN 30.7 pg (27.0-34.0); MEAN CORPUSCULAR HGB CONC 33.9 g/dL (33.0-35.0); MEAN CORPUSCULAR VOLUME 90.6 fL (80.0-100.0); MONOCYTES # (AUTO) 3.1 x10^3/uL (0.3-0.8); MONOCYTES % (AUTO) 18.7 % (0.0-13.0); NEUTROPHILS # (AUTO) 11.5 x10^3/uL (2.2-4.8); PLATELET COUNT 225 X10^3/uL (150.0-450.0); WHITE BLOOD COUNT 16.4 X10^3/uL (3.6-10.0)
[2024-04-11 06:15] LABS: BLOOD UREA NITROGEN 41 mg/dL (7-18); CALCIUM 8.8 mg/dL (8.5-10.1); CARBON DIOXIDE 35.8 mmol/L (21-32); CHLORIDE 108 mmol/L (98-107); COR NA(FOR HYPERGLY) 149 mmol/L (136-145); CREATININE 0.96 mg/dL (0.70-1.30); GLUCOSE 170 mg/dL (65-99); SODIUM 147 mmol/L (136-145); eGFR NON BLACK RACES > 60 (>60)
[2024-04-11 06:18] LABS: POTASSIUM 2.7 mmol/L (3.5-5.1)
[2024-04-11 06:21] LABS: PREALBUMIN 9.1 mg/dL (18-35.7)
--- NOTE | 2024-04-11 07:02 | RAD ---
EXAMINATION:CHEST, 1 VIEWHISTORY:VENTILATOR PROTOCOL ; .COMPARISON STUDY:Chest x-ray 04/11/2019TECHNIQUE:Single portable AP view chestFINDINGS:Dense alveolar infiltrates scattered throughout the right lung, left perihilar region, left pulmonary base. Mild cardiac silhouette enlargement. Tip of the endotracheal tube is 2.2 cm above the level of the caro. Right-sided central venous access catheter with distal tip along the SVC/right atrium. [place] bones appear intactIMPRESSION:Bilateral pulmonary infiltrates. Dense opacity obscures the left hemidiaphragm and CP angle.Cardiac silhouette enlargement.THIS IS AN ELECTRONICALLY VERIFIED FINAL REPORT04/11/2024 6:59 AM - Electronically signed by Niurka Salgado MD
[2024-04-11] MEDS: OFIRMEV IV 1000 MG VIAL 1,000 MG/100 ML VIAL IV PRN (08:52)
[2024-04-11] MEDS: LASIX IVP ONE (10:00)
[2024-04-11 11:45] LABS: BLOOD UREA NITROGEN 40 mg/dL (7-18); CALCIUM 8.6 mg/dL (8.5-10.1); CARBON DIOXIDE 36.5 mmol/L (21-32); CHLORIDE 108 mmol/L (98-107); COR NA(FOR HYPERGLY) 148 mmol/L (136-145); CREATININE 0.91 mg/dL (0.70-1.30); GLUCOSE 175 mg/dL (65-99); SODIUM 146 mmol/L (136-145); eGFR NON BLACK RACES > 60 (>60)
[2024-04-11] MEDS: CLINIMIX 5 %/20 % 1,000 ML with MVI INJ (ADULT) 10 ML, MAGNESIUM SULFATE 50% INJ VIAL 2... IV SCH (14:31)
[2024-04-11] MEDS ORDERED: VASOSTRICT INJ 20 UNITS VIAL 40 UNITS in NS 100 ML IV 100 ML IV PRN (15:34)
[2024-04-11] MEDS: NEO-SYNEPHRINE INJ 30 MG in NS 500 ML IV 500 ML IV PRN (16:01)
[2024-04-11 17:31] LABS: BLOOD UREA NITROGEN 41 mg/dL (7-18); CALCIUM 8.1 mg/dL (8.5-10.1); CARBON DIOXIDE 34.4 mmol/L (21-32); CHLORIDE 107 mmol/L (98-107); COR NA(FOR HYPERGLY) 145 mmol/L (136-145); CREATININE 0.84 mg/dL (0.70-1.30); GLUCOSE 165 mg/dL (65-99); SODIUM 143 mmol/L (136-145); eGFR NON BLACK RACES > 60 (>60)
[2024-04-12 05:51] LABS: ABG BASE EXCESS 16.6 mmol/L (-2.0-2.0)
[2024-04-12 05:51] LABS: BASOPHILS # (AUTO) 0.1 X10^3/uL (0.0-0.1); BASOPHILS % (AUTO) 0.5 % (0.2-1.0); EOSINOPHILS # (AUTO) 0.1 x10^3/uL (0.0-0.2); EOSINOPHILS % (AUTO) 0.3 % (0.9-2.9); HEMATOCRIT 30.9 % (42.0-54.0); HEMOGLOBIN 10.5 g/dL (13.5-18.0); LYMPHOCYTES # (AUTO) 3.3 X10^3/uL (1.3-2.9); LYMPHOCYTES % (AUTO) 16.2 % (21.0-51.0); MEAN CORPUSCULAR HEMOGLOBIN 30.6 pg (27.0-34.0); MEAN CORPUSCULAR VOLUME 89.9 fL (80.0-100.0); MEAN PLATELET VOLUME 9.2 fL (7.4-11.0); MONOCYTES % (AUTO) 19.6 % (0.0-13.0); NEUTROPHILS % (AUTO) 63.4 % (42.0-75.0); PLATELET COUNT 199 X10^3/uL (150.0-450.0); RED BLOOD COUNT 3.44 X10^6/uL (4.7-6.0); RED CELL DISTRIBUTION WIDTH 15.9 % (11.6-16.5); WHITE BLOOD COUNT 20.5 X10^3/uL (3.6-10.0)
[2024-04-12 05:52] LABS: ABG ALLEN TEST POS; ABG HCO3 40.3 mmol/L (22-26)
[2024-04-12 06:09] LABS: ALANINE AMINOTRANSFERASE 7 Units/L (12-78); ALBUMIN 1.7 g/dL (3.4-5.0); ALKALINE PHOSPHATASE 71 Units/L (46-116); ASPARTATE AMINO TRANSFERASE 11 Units/L (15-37); BLOOD UREA NITROGEN 36 mg/dL (7-18); CALCIUM 7.9 mg/dL (8.5-10.1); CARBON DIOXIDE 38.6 mmol/L (21-32); CHLORIDE 108 mmol/L (98-107); COR CA(FOR HYPOALB) 9.7 mg/dL (8.5-10.1); COR NA(FOR HYPERGLY) 148 mmol/L (136-145); CREATININE 0.76 mg/dL (0.70-1.30); GLUCOSE 165 mg/dL (65-99); SODIUM 146 mmol/L (136-145); TOTAL PROTEIN 4.2 g/dL (6.4-8.2); eGFR NON BLACK RACES > 60 (>60)
[2024-04-12 06:11] LABS: POTASSIUM 2.9 mmol/L (3.5-5.1)
[2024-04-12] MEDS ORDERED: K-RIDER 10 MEQ/100 ML WATER 10 MEQ/100 ML BAG IV SCH (09:00)
[2024-04-12] MEDS: CONSULT PHARMACY - POTASSIUM & MAGNESIUM XX SCH (09:13)
--- NOTE | 2024-04-12 12:39 | PCM.PROG ---
Progress Note Progress Note for Day of Date of Exam: 04/12/24 Subjective Subjective: Patient seen at bedside, no acute events overnight. He is currently admitted for acute respiratory failure due to pneumonia, CHF exacerbation and atrial fibrillation. Earlier this morning, patient's blood pressure was noted to be low, dopamine was titrated up. He remains on mechanical ventilation along with diltiazem drip, dopamine drip, phenylephrine, Versed and Precedex. He is currently on tigecycline. Chest x-ray shows bilateral infiltrates. Labs/imaging reviewed: -WBC 20.5 hemoglobin 10.5 potassium 2.9 creatinine 0.76 glucose 165 -ABG 7.5 8/43/66/40.3 FiO2 40% PEEP 5 -Sputum culture 04/10/2024 Klebsiella and staph intermedius -Sputum culture 04/08/2024 Klebsiella plus MRSA Plan: Continue ICU care and mechanical ventilation. Wean vent settings as per RT. Keep MAP above 65, titrate pressors as needed. Will stop tigecycline, start cefepime and vancomycin. Add hydrocortisone. Continue sedation as per protocol. Replace electrolytes as per protocol. Follow-up pending cultures. Continue IV Lasix. Monitor urine output. Discussed treatment plan with family, answered all questions. Patient remains in critical condition with guarded prognosis. Time spent for clinical assessment, reviewing labs/imaging, physical exam, decision making and documentation greater than 45 mins. Past Medical Family Social History Allergies: Allergies No Known Drug Allergies Allergy (Verified 04/11/24 00:01) Vital Signs and I&O's Vital Signs: Vital Signs Temperature 98.6 F Pulse Rate 101 Pulse Rate 99 Pulse Rate 101 Pulse Rate 103 Pulse Rate 97 Pulse Rate 102 Pulse Rate 105 Pulse Rate 104 Pulse Rate 104 Pulse Rate 105 Pulse Rate 104 Pulse Rate 99 Pulse Rate 106 Pulse Rate 109 Pulse Rate 103 Pulse Rate 104 Pulse Rate 106 Pulse Rate 105 Pulse Rate 109 Pulse Rate 105 Pulse Rate 104 Pulse Rate 105 Pulse Rate 104 Pulse Rate 104 Pulse Rate 99 Pulse Rate 91 Pulse Rate 93 Pulse Rate 90 Pulse Rate 88 Pulse Rate 89 Pulse Rate 91 Pulse Rate 89 Pulse Rate 91 Pulse Rate 92 Pulse Rate 89 Pulse Rate 91 Pulse Rate 90 Pulse Rate 90 Pulse Rate 89 Pulse Rate 91 Pulse Rate 90 Pulse Rate 91 Pulse Rate 90 Pulse Rate 90 Pulse Rate 92 Pulse Rate 88 Pulse Rate 92 Pulse Rate 93 Pulse Rate 90 Pulse Rate 90 Pulse Rate 88 Pulse Rate 90 Pulse Rate 89 Pulse Rate 89 Pulse Rate 91 Pulse Rate 89 Pulse Rate 87 Pulse Rate 89 Pulse Rate 89 Pulse Rate 94 Pulse Rate 91 Pulse Rate 89 Pulse Rate 91 Pulse Rate 94 Pulse Rate 93 Pulse Rate 92 Pulse Rate 92 Pulse Rate 94 Pulse Rate 91 Pulse Rate 95 Pulse Rate 91 Pulse Rate 98 Pulse Rate 90 Pulse Rate 91 Pulse Rate 90 Pulse Rate 87 Pulse Rate 86 Pulse Rate 88 Pulse Rate 88 Pulse Rate 89 Pulse Rate 89 Pulse Rate 87 Pulse Rate 89 Pulse Rate 90 Pulse Rate 92 Pulse Rate 92 Pulse Rate 88 Pulse Rate 90 Pulse Rate 88 Pulse Rate 89 Pulse Rate 88 Pulse Rate 88 Pulse Rate 88 Pulse Rate 89 Pulse Rate 91 Pulse Rate 88 Pulse Rate 89 Respiratory Rate 17 Respiratory Rate 18 Respiratory Rate 18 Respiratory Rate 16 Respiratory Rate 18 Respiratory Rate 18 Respiratory Rate 19 Respiratory Rate 18 Respiratory Rate 20 Respiratory Rate 20 Respiratory Rate 18 Respiratory Rate 17 Respiratory Rate 16 Respiratory Rate 17 Respiratory Rate 17 Respiratory Rate 17 Respiratory Rate 19 Respiratory Rate 19 Respiratory Rate 19 Respiratory Rate 20 Respiratory Rate 18 Respiratory Rate 20 Respiratory Rate 18 Respiratory Rate 20 Respiratory Rate 20 Respiratory Rate 20 Respiratory Rate 19 Respiratory Rate 18 Respiratory Rate 16 Respiratory Rate 17 Respiratory Rate 18 Respiratory Rate 17 Respiratory Rate 19 Respiratory Rate 17 Respiratory Rate 17 Respiratory Rate 17 Respiratory Rate 17 Respiratory Rate 19 Respiratory Rate 18 Respiratory Rate 19 Respiratory Rate 19 Respiratory Rate 19 Respiratory Rate 17 Respiratory Rate 20 Respiratory Rate 18 Respiratory Rate 19 Respiratory Rate 19 Respiratory Rate 22 Respiratory Rate 22 Respiratory Rate 20 Respiratory Rate 19 Respiratory Rate 17 Respiratory Rate 17 Respiratory Rate 16 Respiratory Rate 18 Respiratory Rate 23 Respiratory Rate 23 Respiratory Rate 22 Respiratory Rate 22 Respiratory Rate 23 Respiratory Rate 21 Respiratory Rate 21 Respiratory Rate 23 Respiratory Rate 21 Respiratory Rate 22 Respiratory Rate 23 Respiratory Rate 22 Respiratory Rate 22 Respiratory Rate 22 Respiratory Rate 23 Respiratory Rate 20 Respiratory Rate 18 Respiratory Rate 19 Respiratory Rate 19 Respiratory Rate 24 Respiratory Rate 23 Respiratory Rate 23 Respiratory Rate 24 Respiratory Rate 22 Respiratory Rate 18 Respiratory Rate 21 Respiratory Rate 16 Respiratory Rate 16 Respiratory Rate 16 Respiratory Rate 17 Respiratory Rate 16 Respiratory Rate 17 Respiratory Rate 18 Respiratory Rate 16 Respiratory Rate 17 Respiratory Rate 17 Respiratory Rate 16 Respiratory Rate 17 Respiratory Rate 17 Respiratory Rate 16 Respiratory Rate 17 Respiratory Rate 18 Respiratory Rate 16 Respiratory Rate 16 Blood Pressure 100/55 Blood Pressure 99/51 Blood Pressure 93/50 Blood Pressure 102/56 Blood Pressure 102/57 Blood Pressure 96/50 Blood Pressure 96/55 Blood Pressure 95/51 Blood Pressure 101/55 Blood Pressure 93/59 Blood Pressure 99/57 Blood Pressure 98/56 Blood Pressure 99/51 Blood Pressure 92/54 Blood Pressure 82/49 Blood Pressure 85/51 Blood Pressure 81/51 Blood Pressure 86/51 Blood Pressure 82/50 Blood Pressure 83/50 Blood Pressure 88/54 Blood Pressure 84/47 Blood Pressure 93/55 Blood Pressure 95/52 Blood Pressure 100/54 Blood Pressure 90/55 Blood Pressure 98/52 Blood Pressure 98/52 Blood Pressure 91/54 Blood Pressure 97/54 Blood Pressure 94/51 Blood Pressure 91/54 Blood Pressure 92/50 Blood Pressure 91/53 Blood Pressure 91/53 Blood Pressure 89/53 Blood Pressure 86/51 Blood Pressure 101/57 Blood Pressure 97/52 Blood Pressure 102/56 Blood Pressure 94/50 Blood Pressure 94/50 Blood Pressure 97/52 Blood Pressure 97/55 Blood Pressure 101/57 Blood Pressure 94/55 Blood Pressure 100/55 Blood Pressure 97/55 Blood Pressure 91/50 O2 Sat by Pulse Oximetry 100 O2 Sat by Pulse Oximetry 96 O2 Sat by Pulse Oximetry 96 O2 Sat by Pulse Oximetry 97 O2 Sat by Pulse Oximetry 97 O2 Sat by Pulse Oximetry 96 O2 Sat by Pulse Oximetry 97 O2 Sat by Pulse Oximetry 96 O2 Sat by Pulse Oximetry 97 O2 Sat by Pulse Oximetry 97 O2 Sat by Pulse Oximetry 97 O2 Sat by Pulse Oximetry 98 O2 Sat by Pulse Oximetry 97 O2 Sat by Pulse Oximetry 97 O2 Sat by Pulse Oximetry 97 O2 Sat by Pulse Oximetry 98 O2 Sat by Pulse Oximetry 98 O2 Sat by Pulse Oximetry 98 O2 Sat by Pulse Oximetry 98 O2 Sat by Pulse Oximetry 98 O2 Sat by Pulse Oximetry 99 O2 Sat by Pulse Oximetry 99 O2 Sat by Pulse Oximetry 99 O2 Sat by Pulse Oximetry 99 O2 Sat by Pulse Oximetry 99 O2 Sat by Pulse Oximetry 99 O2 Sat by Pulse Oximetry 90 O2 Sat by Pulse Oximetry 100 O2 Sat by Pulse Oximetry 97 O2 Sat by Pulse Oximetry 96 O2 Sat by Pulse Oximetry 94 O2 Sat by Pulse Oximetry 95 O2 Sat by Pulse Oximetry 93 O2 Sat by Pulse Oximetry 94 O2 Sat by Pulse Oximetry 94 O2 Sat by Pulse Oximetry 95 O2 Sat by Pulse Oximetry 95 O2 Sat by Pulse Oximetry 94 O2 Sat by Pulse Oximetry 95 O2 Sat by Pulse Oximetry 93 O2 Sat by Pulse Oximetry 95 O2 Sat by Pulse Oximetry 95 O2 Sat by Pulse Oximetry 95 O2 Sat by Pulse Oximetry 96 O2 Sat by Pulse Oximetry 100 O2 Sat by Pulse Oximetry 100 O2 Sat by Pulse Oximetry 100 O2 Sat by Pulse Oximetry 100 O2 Sat by Pulse Oximetry 100 O2 Sat by Pulse Oximetry 100 O2 Sat by Pulse Oximetry 98 O2 Sat by Pulse Oximetry 98 O2 Sat by Pulse Oximetry 96 O2 Sat by Pulse Oximetry 100 O2 Sat by Pulse Oximetry 100 O2 Sat by Pulse Oximetry 100 O2 Sat by Pulse Oximetry 100 O2 Sat by Pulse Oximetry 100 O2 Sat by Pulse Oximetry 100 O2 Sat by Pulse Oximetry 100 O2 Sat by Pulse Oximetry 100 O2 Sat by Pulse Oximetry 100 O2 Sat by Pulse Oximetry 100 O2 Sat by Pulse Oximetry 100 O2 Sat by Pulse Oximetry 100 O2 Sat by Pulse Oximetry 100 O2 Sat by Pulse Oximetry 100 O2 Sat by Pulse Oximetry 100 O2 Sat by Pulse Oximetry 100 O2 Sat by Pulse Oximetry 100 O2 Sat by Pulse Oximetry 100 O2 Sat by Pulse Oximetry 100 O2 Sat by Pulse Oximetry 100 O2 Sat by Pulse Oximetry 100 O2 Sat by Pulse Oximetry 100 O2 Sat by Pulse Oximetry 100 O2 Sat by Pulse Oximetry 100 O2 Sat by Pulse Oximetry 100 O2 Sat by Pulse Oximetry 100 O2 Sat by Pulse Oximetry 100 O2 Sat by Pulse Oximetry 100 O2 Sat by Pulse Oximetry 100 O2 Sat by Pulse Oximetry 100 O2 Sat by Pulse Oximetry 100 O2 Sat by Pulse Oximetry 100 O2 Sat by Pulse Oximetry 100 O2 Sat by Pulse Oximetry 100 O2 Sat by Pulse Oximetry 100 O2 Sat by Pulse Oximetry 99 O2 Sat by Pulse Oximetry 99 O2 Sat by Pulse Oximetry 99 O2 Sat by Pulse Oximetry 99 O2 Sat by Pulse Oximetry 99 O2 Sat by Pulse Oximetry 100 O2 Sat by Pulse Oximetry 100 O2 Sat by Pulse Oximetry 100 O2 Sat by Pulse Oximetry 100 Intake and Output: Intake & Output 04/09/24 04/10/24 04/11/24 04/12/24 23:59 23:59 23:59 23:59 Intake Total 3064.2 / 3064.2 6482.5 / 6482.5 3674 / 3674 Output Total 4850 / 4850 8300 / 8300 3300 / 3300 Balance -1785.8 / -1785.8 -1817.5 / -1817.5 374 / 374 Physical Exam Oriented: Unable to test Throat: Dry and Other (ETT present ) Respiratory: Generalized and Diminished Cardiovascular: Tachycardia and Irregular Auscultation: Bowel Sounds: Normal Palpation: Normal Tenderness: Normal Skin: Decreased Turgur Musculoskeletal: Motor Deficit Psychiatric: Normal Speech Pattern: Artificially Ventilated Laboratory and Diagnostics 04/12/24 05:15 04/12/24 05:15 Labs: Laboratory WBC 20.5 X10^3/uL (3.6-10.0) H 04/12/24 05:15 RBC 3.44 X10^6/uL (4.7-6.0) L 04/12/24 05:15 Hgb 10.5 g/dL (13.5-18.0) L 04/12/24 05:15 Hct 30.9 % (42.0-54.0) L 04/12/24 05:15 MCV 89.9 fL (80.0-100.0) 04/12/24 05:15 MCH 30.6 pg (27.0-34.0) 04/12/24 05:15 MCHC 34.0 g/dL (33.0-35.0) 04/12/24 05:15 RDW 15.9 % (11.6-16.5) 04/12/24 05:15 Plt Count 199 X10^3/uL (150.0-450.0) 04/12/24 05:15 MPV 9.2 fL (7.4-11.0) 04/12/24 05:15 Neut % (Auto) 63.4 % (42.0-75.0) 04/12/24 05:15 Lymph % (Auto) 16.2 % (21.0-51.0) L 04/12/24 05:15 [place] % (Auto) 19.6 % (0.0-13.0) H 04/12/24 05:15 Eos % (Auto) 0.3 % (0.9-2.9) L 04/12/24 05:15 Baso % (Auto) 0.5 % (0.2-1.0) 04/12/24 05:15 Neut # (Auto) 13.0 x10^3/uL (2.2-4.8) H 04/12/24 05:15 Lymph # (Auto) 3.3 X10^3/uL (1.3-2.9) H 04/12/24 05:15 [place] # (Auto) 4.0 x10^3/uL (0.3-0.8) H 04/12/24 05:15 Eos # (Auto) 0.1 x10^3/uL (0.0-0.2) 04/12/24 05:15 Baso # (Auto) 0.1 X10^3/uL (0.0-0.1) 04/12/24 05:15 Absolute Nucleated RBC 0.0 /100WBC 04/12/24 05:15 Sample Site L rad 04/12/24 05:45 ABG pH 7.580 (7.35-7.45) H* 04/12/24 05:45 ABG pCO2 43.0 mmHg (35.0-45.0) 04/12/24 05:45 ABG pO2 66.0 mmHg (80.0-100.0) L 04/12/24 05:45 ABG HCO3 40.3 mmol/L (22-26) H* 04/12/24 05:45 ABG O2 Saturation 96.0 % (90-100) 04/12/24 05:45 ABG Base Excess 16.6 mmol/L (-2.0-2.0) H 04/12/24 05:45 Hao Test Pos 04/12/24 05:45 A-a Gradient 165.0 mmHg 04/12/24 05:45 FiO2 40.0 04/12/24 05:45 Blood Gas Comments Pt rola well. [place] 04/12/24 05:45 Sodium 146 mmol/L (136-145) H 04/12/24 05:15 Corrected Sodium 148 mmol/L (136-145) H 04/12/24 05:15 Potassium 2.9 mmol/L (3.5-5.1) L* 04/12/24 05:15 Chloride 108 mmol/L (98-107) H 04/12/24 05:15 Carbon Dioxide 38.6 mmol/L (21-32) H 04/12/24 05:15 BUN 36 mg/dL (7-18) H 04/12/24 05:15 Creatinine 0.76 mg/dL (0.70-1.30) 04/12/24 05:15 Est GFR (MDRD) Af Amer > 60 (>60) 04/12/24 05:15 Est GFR (MDRD) Non-Af > 60 (>60) 04/12/24 05:15 Glucose 165 mg/dL (65-99) H 04/12/24 05:15 POC Glucose (mg/dL) 159 mg/dL (65-99) H 04/12/24 10:34 Lactic Acid 1.5 mmol/L (0.4-2.0) 04/11/24 05:43 Calcium 7.9 mg/dL (8.5-10.1) L 04/12/24 05:15 Corrected Calcium 9.7 mg/dL (8.5-10.1) 04/12/24 05:15 Magnesium 2.0 mg/dL (2.0-2.9) 04/12/24 05:15 Total Bilirubin 0.60 mg/dL (0.2-1.0) 04/12/24 05:15 AST 11 Units/L (15-37) L 04/12/24 05:15 ALT 7 Units/L (12-78) L 04/12/24 05:15 Alkaline Phosphatase 71 Units/L (46-116) 04/12/24 05:15 Troponin I High Sens 11.1 ng/L (4.0-60.0) 04/10/24 10:09 Total Protein 4.2 g/dL (6.4-8.2) L 04/12/24 05:15 Albumin 1.7 g/dL (3.4-5.0) L 04/12/24 05:15 Globulin 2.5 g/dL (2.5-4.5) 04/12/24 05:15 Albumin/Globulin Ratio 0.7 Ratio (1.1-2.1) L 04/12/24 05:15 Prealbumin 9.1 mg/dL (18-35.7) L 04/11/24 05:43 Plan (1) Endotracheal tube present: Status: Acute (2) Acute hypercapnic respiratory failure: Status: Acute (3) Septic shock: Status: Acute (4) Hospital-acquired pneumonia: Status: Acute (5) Klebsiella pneumoniae pneumonia: Status: Acute Qualifiers: Laterality: bilateral Lung location: lower lobe of lung Qualified Code(s): J15.0 - Pneumonia due to Klebsiella pneumoniae (6) MRSA pneumonia: Status: Acute Qualifiers: Laterality: bilateral Lung location: lower lobe of lung Qualified Code(s): J15.212 - Pneumonia due to Methicillin resistant Staphylococcus aureus (7) CHF exacerbation: Status: Acute Qualifiers: Heart failure type: unspecified Qualified Code(s): I50.9 - Heart failure, unspecified (8) Hypotension: Status: Acute Qualifiers: Hypotension type: unspecified hypotension type Qualified Code(s): I95.9 - Hypotension, unspecified (9) Atrial fibrillation: Status: Acute Qualifiers: Atrial fibrillation type: unspecified chronic Qualified Code(s): I48.20 - Chronic atrial fibrillation, unspecified
[2024-04-12] MEDS: SOLU-Cortef INJ IVP SCH (13:58)
[2024-04-12] MEDS: VANCOMYCIN IV *PREMIX 1 G/200 ML BAG 1 G/200 ML PIGGYBACK IV SCH (13:58)
[2024-04-12] MEDS: MAXIPIME VIAL 1 GRAM 1 G in NS 50 ML IV 50 ML IV SCH (13:58)
[2024-04-12] MEDS: NS 500 ML IV 500 ML IV ONE (14:36)
[2024-04-12] MEDS: CLINIMIX 5 %/20 % 1,000 ML with MVI INJ (ADULT) 10 ML, MAGNESIUM SULFATE 50% INJ VIAL 2... IV SCH (15:20)
[2024-04-12] MEDS: DRUG FILTER EXTENSION SET ONE (18:03)
[2024-04-12] MEDS: NovoLIN R (or HumuLIN R) SUBCUT PRN (18:40)
[2024-04-13] MEDS ORDERED: NEO-SYNEPHRINE INJ ONE ×2 (03:04→09:23)
[2024-04-13] MEDS ORDERED: NS 500 ML IV 500 ML IV ONE ×3 (03:06→23:08)
[2024-04-13 05:41] LABS: BASOPHILS # (AUTO) 0.1 X10^3/uL (0.0-0.1); BASOPHILS % (AUTO) 0.6 % (0.2-1.0); HEMOGLOBIN 10.5 g/dL (13.5-18.0); LYMPHOCYTES # (AUTO) 1.8 X10^3/uL (1.3-2.9); LYMPHOCYTES % (AUTO) 9.4 % (21.0-51.0); MEAN CORPUSCULAR HEMOGLOBIN 30.4 pg (27.0-34.0); MEAN CORPUSCULAR VOLUME 89.5 fL (80.0-100.0); MEAN PLATELET VOLUME 9.6 fL (7.4-11.0); MONOCYTES # (AUTO) 1.2 x10^3/uL (0.3-0.8); NEUTROPHILS # (AUTO) 16.4 x10^3/uL (2.2-4.8); PLATELET COUNT 191 X10^3/uL (150.0-450.0); RED BLOOD COUNT 3.46 X10^6/uL (4.7-6.0); RED CELL DISTRIBUTION WIDTH 16.2 % (11.6-16.5); WHITE BLOOD COUNT 19.5 X10^3/uL (3.6-10.0)
--- NOTE | 2024-04-13 06:06 | RAD ---
EXAM:CHEST, 1 VIEWHISTORY:RESPIRATORY DISTRESS, PNEUMONIA, VENT;COMPARISON:04/11/2024FINDINGS:Stabl e cardiomediastinal silhouette and support apparatus. Hazy bilateral pulmonary opacities appear worse than prior. Probable [id number] bilateral pleural effusions. No visible pneumothorax or acute osseous finding.IMPRESSION:Worsening bilateral opacities.THIS IS AN ELECTRONICALLY VERIFIED FINAL REPORT04/13/2024 6:03 AM - Electronically signed by Roman Adhikari MD
[2024-04-13 06:17] LABS: ABG BASE EXCESS 12.1 mmol/L (-2.0-2.0)
[2024-04-13 06:18] LABS: ABG HCO3 35.9 mmol/L (22-26)
[2024-04-13 06:19] LABS: ABG ALLEN TEST POS
[2024-04-13 06:20] LABS: ALANINE AMINOTRANSFERASE 10 Units/L (12-78); ALBUMIN 1.8 g/dL (3.4-5.0); ALKALINE PHOSPHATASE 87 Units/L (46-116); ASPARTATE AMINO TRANSFERASE 14 Units/L (15-37); BLOOD UREA NITROGEN 45 mg/dL (7-18); CARBON DIOXIDE 33.8 mmol/L (21-32); CHLORIDE 106 mmol/L (98-107); COR CA(FOR HYPOALB) 9.8 mg/dL (8.5-10.1); COR NA(FOR HYPERGLY) 150 mmol/L (136-145); CREATININE 0.94 mg/dL (0.70-1.30); GLUCOSE 257 mg/dL (65-99); MAGNESIUM 2.4 mg/dL (2.0-2.9); POTASSIUM 3.1 mmol/L (3.5-5.1); SODIUM 146 mmol/L (136-145); TOTAL PROTEIN 4.9 g/dL (6.4-8.2); eGFR NON BLACK RACES > 60 (>60)
[2024-04-13] MEDS: DRUG FILTER EXTENSION SET ONE (08:08)
[2024-04-13] MEDS: K-RIDER 10 MEQ/100 ML WATER 10 MEQ/100 ML BAG IV ONE (10:24)
--- NOTE | 2024-04-13 11:27 | PCM.PROG ---
Progress Note Progress Note for Day of Date of Exam: 04/13/24 Subjective Subjective: Patient seen at bedside, no acute events overnight. He is currently admitted for acute respiratory failure due to pneumonia requiring mechanical ventilation, septic shock with hypotension, CHF exacerbation and atrial fibrillation. His BP has improved, MAP > 65. CXR showed worsening bilateral infiltrates. He remains on IV antibiotics and TPN. UOP has been good. Labs/imaging reviewed: -WBC 19.5 hemoglobin 10.5 potassium 3.1 creatinine 0.94 -ABG 7.54 8/42/63/35 FiO2 40% PEEP 5 -CXR: worsening b/l infiltrates -Sputum culture 04/10/2024 Klebsiella and staph intermedius -Sputum culture 04/08/2024 Klebsiella plus MRSA Plan: Continue ICU care and mechanical ventilation. Wean vent settings as per RT. Keep MAP above 65, titrate pressors as needed. BP has improved, able to wean down phenylephrine and dopamine. Continue cefepime and vancomycin. Continue hydrocortisone. Continue sedation as per protocol. Replace electrolytes as per protocol. Follow-up pending cultures. Continue IV Lasix. Monitor urine output. Continue TPN. Discussed treatment plan with family, answered all questions. Patient remains in critical condition with guarded prognosis. Time spent for clinical assessment, reviewing labs/imaging, physical exam, decision making and documentation greater than 45 mins. Past Medical Family Social History Allergies: Allergies No Known Drug Allergies Allergy (Verified 04/11/24 00:01) Vital Signs and I&O's Vital Signs: Vital Signs Temperature 99.3 F Pulse Rate 76 Pulse Rate 75 Pulse Rate 75 Pulse Rate 78 Pulse Rate 61 Pulse Rate 79 Pulse Rate 64 Pulse Rate 73 Pulse Rate 74 Pulse Rate 72 Pulse Rate 82 Pulse Rate 72 Pulse Rate 75 Pulse Rate 73 Pulse Rate 75 Pulse Rate 74 Pulse Rate 75 Pulse Rate 77 Pulse Rate 75 Pulse Rate 80 Pulse Rate 71 Pulse Rate 91 Pulse Rate 74 Pulse Rate 75 Pulse Rate 73 Pulse Rate 83 Pulse Rate 79 Pulse Rate 75 Pulse Rate 73 Pulse Rate 74 Pulse Rate 74 Pulse Rate 76 Pulse Rate 73 Pulse Rate 73 Pulse Rate 74 Pulse Rate 74 Pulse Rate 79 Pulse Rate 74 Pulse Rate 74 Pulse Rate 77 Pulse Rate 74 Pulse Rate 72 Pulse Rate 75 Pulse Rate 74 Pulse Rate 76 Pulse Rate 76 Pulse Rate 75 Pulse Rate 75 Pulse Rate 76 Pulse Rate 75 Pulse Rate 76 Pulse Rate 76 Pulse Rate 80 Pulse Rate 77 Pulse Rate 83 Respiratory Rate 19 Respiratory Rate 17 Respiratory Rate 19 Respiratory Rate 20 Respiratory Rate 18 Respiratory Rate 20 Respiratory Rate 19 Respiratory Rate 18 Respiratory Rate 19 Respiratory Rate 19 Respiratory Rate 19 Respiratory Rate 18 Respiratory Rate 20 Respiratory Rate 18 Respiratory Rate 18 Respiratory Rate 18 Respiratory Rate 18 Respiratory Rate 18 Respiratory Rate 19 Respiratory Rate 19 Respiratory Rate 19 Respiratory Rate 18 Respiratory Rate 19 Respiratory Rate 16 Respiratory Rate 19 Respiratory Rate 18 Respiratory Rate 20 Respiratory Rate 19 Respiratory Rate 20 Respiratory Rate 18 Respiratory Rate 19 Respiratory Rate 18 Respiratory Rate 19 Respiratory Rate 18 Respiratory Rate 19 Respiratory Rate 20 Respiratory Rate 20 Respiratory Rate 20 Respiratory Rate 20 Respiratory Rate 21 Respiratory Rate 21 Respiratory Rate 20 Respiratory Rate 18 Respiratory Rate 18 Respiratory Rate 21 Respiratory Rate 20 Respiratory Rate 20 Respiratory Rate 18 Respiratory Rate 18 Respiratory Rate 20 Respiratory Rate 19 Respiratory Rate 21 Respiratory Rate 19 Respiratory Rate 19 Respiratory Rate 19 Respiratory Rate 20 Respiratory Rate 20 Blood Pressure 118/56 Blood Pressure 113/56 Blood Pressure 108/52 Blood Pressure 112/56 Blood Pressure 101/53 Blood Pressure 111/56 Blood Pressure 100/46 Blood Pressure 120/59 Blood Pressure 130/60 Blood Pressure 135/61 Blood Pressure 125/60 Blood Pressure 135/61 Blood Pressure 134/60 Blood Pressure 128/61 Blood Pressure 125/60 Blood Pressure 126/60 Blood Pressure 128/60 Blood Pressure 122/60 Blood Pressure 114/56 Blood Pressure 129/59 Blood Pressure 122/58 Blood Pressure 124/59 Blood Pressure 127/61 Blood Pressure 121/58 Blood Pressure 134/63 Blood Pressure 126/61 Blood Pressure 135/59 Blood Pressure 125/60 Blood Pressure 123/58 Blood Pressure 120/58 Blood Pressure 127/59 O2 Sat by Pulse Oximetry 97 O2 Sat by Pulse Oximetry 97 O2 Sat by Pulse Oximetry 96 O2 Sat by Pulse Oximetry 97 O2 Sat by Pulse Oximetry 97 O2 Sat by Pulse Oximetry 97 O2 Sat by Pulse Oximetry 100 O2 Sat by Pulse Oximetry 97 O2 Sat by Pulse Oximetry 97 O2 Sat by Pulse Oximetry 97 O2 Sat by Pulse Oximetry 97 O2 Sat by Pulse Oximetry 97 O2 Sat by Pulse Oximetry 97 O2 Sat by Pulse Oximetry 97 O2 Sat by Pulse Oximetry 97 O2 Sat by Pulse Oximetry 97 O2 Sat by Pulse Oximetry 97 O2 Sat by Pulse Oximetry 98 O2 Sat by Pulse Oximetry 97 O2 Sat by Pulse Oximetry 98 O2 Sat by Pulse Oximetry 100 O2 Sat by Pulse Oximetry 97 O2 Sat by Pulse Oximetry 97 O2 Sat by Pulse Oximetry 97 O2 Sat by Pulse Oximetry 97 O2 Sat by Pulse Oximetry 97 O2 Sat by Pulse Oximetry 97 O2 Sat by Pulse Oximetry 97 O2 Sat by Pulse Oximetry 98 O2 Sat by Pulse Oximetry 97 O2 Sat by Pulse Oximetry 97 O2 Sat by Pulse Oximetry 97 O2 Sat by Pulse Oximetry 97 O2 Sat by Pulse Oximetry 97 O2 Sat by Pulse Oximetry 97 O2 Sat by Pulse Oximetry 97 O2 Sat by Pulse Oximetry 97 O2 Sat by Pulse Oximetry 97 O2 Sat by Pulse Oximetry 97 O2 Sat by Pulse Oximetry 96 O2 Sat by Pulse Oximetry 97 O2 Sat by Pulse Oximetry 96 O2 Sat by Pulse Oximetry 96 O2 Sat by Pulse Oximetry 97 O2 Sat by Pulse Oximetry 97 O2 Sat by Pulse Oximetry 97 O2 Sat by Pulse Oximetry 97 O2 Sat by Pulse Oximetry 96 O2 Sat by Pulse Oximetry 96 O2 Sat by Pulse Oximetry 97 O2 Sat by Pulse Oximetry 96 O2 Sat by Pulse Oximetry 96 O2 Sat by Pulse Oximetry 96 O2 Sat by Pulse Oximetry 96 O2 Sat by Pulse Oximetry 96 Intake and Output: Intake & Output 04/10/24 04/11/24 04/12/24 04/14/24 23:59 23:59 23:59 00:59 Intake Total 3064.2 / 3064.2 6482.5 / 6482.5 8514 / 8514 3679 / 3679 Output Total 4850 / 4850 8300 / 8300 6050 / 6050 1300 / 1300 Balance -1785.8 / -1785.8 -1817.5 / -1817.5 2464 / 2464 2379 / 2379 Physical Exam Oriented: Unable to test Throat: Dry and Other (ETT present ) Respiratory: Generalized and Diminished Cardiovascular: Tachycardia and Irregular Auscultation: Bowel Sounds: Normal Palpation: Normal Tenderness: Normal Skin: Decreased Turgur Musculoskeletal: Motor Deficit Psychiatric: Normal Speech Pattern: Artificially Ventilated Laboratory and Diagnostics 04/13/24 04:50 04/13/24 04:50 Labs: Laboratory WBC 19.5 X10^3/uL (3.6-10.0) H 04/13/24 04:50 RBC 3.46 X10^6/uL (4.7-6.0) L 04/13/24 04:50 Hgb 10.5 g/dL (13.5-18.0) L 04/13/24 04:50 Hct 31.0 % (42.0-54.0) L 04/13/24 04:50 MCV 89.5 fL (80.0-100.0) 04/13/24 04:50 MCH 30.4 pg (27.0-34.0) 04/13/24 04:50 MCHC 34.0 g/dL (33.0-35.0) 04/13/24 04:50 RDW 16.2 % (11.6-16.5) 04/13/24 04:50 Plt Count 191 X10^3/uL (150.0-450.0) 04/13/24 04:50 MPV 9.6 fL (7.4-11.0) 04/13/24 04:50 Neut % (Auto) 84.0 % (42.0-75.0) H 04/13/24 04:50 Lymph % (Auto) 9.4 % (21.0-51.0) L 04/13/24 04:50 [place] % (Auto) 6.0 % (0.0-13.0) 04/13/24 04:50 Eos % (Auto) 0.0 % (0.9-2.9) L 04/13/24 04:50 Baso % (Auto) 0.6 % (0.2-1.0) 04/13/24 04:50 Neut # (Auto) 16.4 x10^3/uL (2.2-4.8) H 04/13/24 04:50 Lymph # (Auto) 1.8 X10^3/uL (1.3-2.9) 04/13/24 04:50 [place] # (Auto) 1.2 x10^3/uL (0.3-0.8) H 04/13/24 04:50 Eos # (Auto) 0.0 x10^3/uL (0.0-0.2) 04/13/24 04:50 Baso # (Auto) 0.1 X10^3/uL (0.0-0.1) 04/13/24 04:50 Absolute Nucleated RBC 0.0 /100WBC 04/13/24 04:50 Sample Site L rad 04/13/24 06:12 ABG pH 7.540 (7.35-7.45) H 04/13/24 06:12 ABG pCO2 42.0 mmHg (35.0-45.0) 04/13/24 06:12 ABG pO2 63.0 mmHg (80.0-100.0) L 04/13/24 06:12 ABG HCO3 35.9 mmol/L (22-26) H* 04/13/24 06:12 ABG O2 Saturation 94.0 % (90-100) 04/13/24 06:12 ABG Base Excess 12.1 mmol/L (-2.0-2.0) H 04/13/24 06:12 Hao Test Pos 04/13/24 06:12 A-a Gradient 170.0 mmHg 04/13/24 06:12 FiO2 40.0 04/13/24 06:12 Blood Gas Comments Pt rola well. [place] 04/13/24 06:12 Sodium 146 mmol/L (136-145) H 04/13/24 04:50 Corrected Sodium 150 mmol/L (136-145) H 04/13/24 04:50 Potassium 3.1 mmol/L (3.5-5.1) L 04/13/24 04:50 Chloride 106 mmol/L (98-107) 04/13/24 04:50 Carbon Dioxide 33.8 mmol/L (21-32) H 04/13/24 04:50 BUN 45 mg/dL (7-18) H 04/13/24 04:50 Creatinine 0.94 mg/dL (0.70-1.30) 04/13/24 04:50 Est GFR (MDRD) Af Amer > 60 (>60) 04/13/24 04:50 Est GFR (MDRD) Non-Af > 60 (>60) 04/13/24 04:50 Glucose 257 mg/dL (65-99) H 04/13/24 04:50 POC Glucose (mg/dL) 180 mg/dL (65-99) H 04/13/24 10:26 Lactic Acid 1.5 mmol/L (0.4-2.0) 04/11/24 05:43 Calcium 8.0 mg/dL (8.5-10.1) L 04/13/24 04:50 Corrected Calcium 9.8 mg/dL (8.5-10.1) 04/13/24 04:50 Magnesium 2.4 mg/dL (2.0-2.9) 04/13/24 04:50 Total Bilirubin 0.50 mg/dL (0.2-1.0) 04/13/24 04:50 AST 14 Units/L (15-37) L 04/13/24 04:50 ALT 10 Units/L (12-78) L 04/13/24 04:50 Alkaline Phosphatase 87 Units/L (46-116) 04/13/24 04:50 Troponin I High Sens 11.1 ng/L (4.0-60.0) 04/10/24 10:09 Total Protein 4.9 g/dL (6.4-8.2) L 04/13/24 04:50 Albumin 1.8 g/dL (3.4-5.0) L 04/13/24 04:50 Globulin 3.1 g/dL (2.5-4.5) 04/13/24 04:50 Albumin/Globulin Ratio 0.6 Ratio (1.1-2.1) L 04/13/24 04:50 Prealbumin 9.1 mg/dL (18-35.7) L 04/11/24 05:43 Plan (1) Endotracheal tube present: Status: Acute (2) Acute hypercapnic respiratory failure: Status: Acute (3) Septic shock: Status: Acute (4) Hospital-acquired pneumonia: Status: Acute (5) Klebsiella pneumoniae pneumonia: Status: Acute Qualifiers: Laterality: bilateral Lung location: lower lobe of lung Qualified Code(s): J15.0 - Pneumonia due to Klebsiella pneumoniae (6) MRSA pneumonia: Status: Acute Qualifiers: Laterality: bilateral Lung location: lower lobe of lung Qualified Code(s): J15.212 - Pneumonia due to Methicillin resistant Staphylococcus aureus (7) CHF exacerbation: Status: Acute Qualifiers: Heart failure type: unspecified Qualified Code(s): I50.9 - Heart failure, unspecified (8) Hypotension: Status: Acute Qualifiers: Hypotension type: unspecified hypotension type Qualified Code(s): I95.9 - Hypotension, unspecified (9) Atrial fibrillation: Status: Acute Qualifiers: Atrial fibrillation type: unspecified chronic Qualified Code(s): I48.20 - Chronic atrial fibrillation, unspecified
[2024-04-13] MEDS: CONSULT PHARMACY - POTASSIUM & MAGNESIUM XX SCH (18:07)
[2024-04-13 21:11] LABS: CREATININE 0.87 mg/dL (0.70-1.30); VANCOMYCIN,TROUGH 15.7 ug/mL (15-20)
[2024-04-13] MEDS: PHARMACY COMMENT IV ONE (21:32)
[2024-04-13] MEDS: NS 500 ML IV 500 ML IV PRN (23:13)
[2024-04-14] MEDS ORDERED: CARDIZEM INJ 125 MG VIAL ONE (02:36)
[2024-04-14] MEDS ORDERED: NS 100 ML IV 100 ML ONE (02:41)
[2024-04-14 05:59] LABS: BASOPHILS % (AUTO) 0.2 % (0.2-1.0); HEMOGLOBIN 10.1 g/dL (13.5-18.0); LYMPHOCYTES # (AUTO) 2.2 X10^3/uL (1.3-2.9); LYMPHOCYTES % (AUTO) 8.2 % (21.0-51.0); MEAN CORPUSCULAR HEMOGLOBIN 30.1 pg (27.0-34.0); MEAN CORPUSCULAR HGB CONC 33.6 g/dL (33.0-35.0); MEAN CORPUSCULAR VOLUME 89.6 fL (80.0-100.0); MEAN PLATELET VOLUME 10.2 fL (7.4-11.0); MONOCYTES % (AUTO) 7.5 % (0.0-13.0); NEUTROPHILS # (AUTO) 22.3 x10^3/uL (2.2-4.8); NEUTROPHILS % (AUTO) 84.1 % (42.0-75.0); PLATELET COUNT 184 X10^3/uL (150.0-450.0); RED BLOOD COUNT 3.35 X10^6/uL (4.7-6.0); RED CELL DISTRIBUTION WIDTH 15.8 % (11.6-16.5); WHITE BLOOD COUNT 26.5 X10^3/uL (3.6-10.0)
[2024-04-14 06:10] LABS: ABG ALLEN TEST POS; ABG BASE EXCESS 11.7 mmol/L (-2.0-2.0); ABG HCO3 35.9 mmol/L (22-26)
[2024-04-14 06:14] LABS: ALANINE AMINOTRANSFERASE 28 Units/L (12-78); ALBUMIN 1.7 g/dL (3.4-5.0); ALKALINE PHOSPHATASE 93 Units/L (46-116); ASPARTATE AMINO TRANSFERASE 29 Units/L (15-37); BLOOD UREA NITROGEN 46 mg/dL (7-18); CALCIUM 7.6 mg/dL (8.5-10.1); CARBON DIOXIDE 33.5 mmol/L (21-32); CHLORIDE 106 mmol/L (98-107); COR CA(FOR HYPOALB) 9.4 mg/dL (8.5-10.1); COR NA(FOR HYPERGLY) 150 mmol/L (136-145); CREATININE 0.93 mg/dL (0.70-1.30); GLUCOSE 288 mg/dL (65-99); SODIUM 145 mmol/L (136-145); TOTAL PROTEIN 4.8 g/dL (6.4-8.2); eGFR NON BLACK RACES > 60 (>60)
[2024-04-14 06:15] LABS: POTASSIUM 2.8 mmol/L (3.5-5.1)
[2024-04-14] MEDS ORDERED: CONSULT PHARMACY - POTASSIUM & MAGNESIUM XX SCH (06:30)
[2024-04-14 07:18] LABS: BAND NEUTROPHILS % 1 % (0-10); PLATELET MORPHOLOGY COMMENT NORMAL (NORMAL)
--- NOTE | 2024-04-14 08:31 | RAD ---
EXAM:CHEST, 1 VIEWHISTORY:RESPIRATORY FAILURE. VENTILATOR;COMPARISON:04/12/2024FINDINGS: lung probably due to the pleural effusion better seen on the chest CT 04/08/2024. Differential diagnosis includes parenchymal lung disease which may be atelectasis or pneumonia however.No pneumothorax.Heart size is normal.The bones are unremarkable.EKG leads are noted.IMPRESSION:1. Possible progression of right lung atelectasis or pneumonia2. Pleural effusionsTHIS IS AN ELECTRONICALLY VERIFIED FINAL REPORT04/14/2024 8:28 AM - Electronically signed by Gustabo Fan MD
[2024-04-14] MEDS ORDERED: K-RIDER 10 MEQ/100 ML WATER 10 MEQ/100 ML BAG IV SCH (09:00)
[2024-04-14] MEDS: CLINIMIX 5 %/20 % 1,000 ML with MVI INJ (ADULT) 10 ML, MAGNESIUM SULFATE 50% INJ VIAL 2... IV SCH (09:27)
--- NOTE | 2024-04-14 10:04 | NOTE.SOAP ---
Soap Note Note for Day of Date of Exam: 04/11/24 Subjective Data Subjective Data: Patient remains intubated and sedated. Family at bedside. Continued tachycardia while in A-fib. White count still elevated. Objective Data Objective Data: Thin, elderly male on mechanical ventilation. Upper extremities are less edematous well lower extremities still with 2+ edema. Heart irregularly, ir regular and tachycardic. Lungs diminished at the bases with mechanical sounds. Bowel sounds are present. Assessment Assessment: Acute hypercapnic respiratory failure Septic shock due to Klebsiella and MRSA pneumonia Hospital-acquired pneumonia Atrial fibrillation Plan Plan: Continue Tygacil. Add on phenylephrine for hypotension and A-fib. Continue diltiazem and dopamine for now. Attempt to wean off ventilator while attempting to wean off pressors. Very poor prognosis.
--- NOTE | 2024-04-14 12:05 | RAD ---
EXAM:CHEST, 1 VIEWHISTORY:Shortness of breathCOMPARISON:04/13/2024FINDINGS:The trachea is midline. The cardiac silhouette is unremarkable. Persistent bibasilar pleural-parenchymal opacity consistent with small effusions and subsegmental atelectasis.. The bony thorax is unremarkable.IMPRESSION:Stable radiograph as above.THIS IS AN ELECTRONICALLY VERIFIED FINAL REPORT04/14/2024 12:02 PM - Electronically signed by Rob Gomez MD
--- NOTE | 2024-04-14 17:00 | NOTE.SOAP ---
Soap Note Note for Day of Date of Exam: 04/14/24 Subjective Data Subjective Data: No acute events over the weekend. Son at bedside. Antibiotics changed to Vanco and Zosyn. Steroids started. Chest x-ray showing worsening pneumonia. Heart rate and blood pressure doing much better overall. White count up over the last 2 days. Objective Data Objective Data: Elderly male on mechanical ventilation. Heart irregularly, irregular. Lungs diminished with mechanical sounds. Belly is soft and nontender with hypoactive bowel sounds. Right leg more edematous than the left. BUE with no edema. Assessment Assessment: 1. Septic shock secondary to hospital-acquired pneumonia due to Klebsiella and MRSA. Continue Vanco and Zosyn. Continue mechanical ventilation. Overall prognosis is very poor. Will plan on proceeding with hospice once family discusses. 2. Persistent atrial fibrillation. Continue current.
[2024-04-15] MEDS: DEXTROSE 10% 1,000 ML IV ONE (00:16)
[2024-04-15 05:06] LABS: ABG ALLEN TEST POS; ABG BASE EXCESS 15.6 mmol/L (-2.0-2.0); ABG HCO3 39.4 mmol/L (22-26)
[2024-04-15 05:07] LABS: BASOPHILS # (AUTO) 0.1 X10^3/uL (0.0-0.1); BASOPHILS % (AUTO) 0.3 % (0.2-1.0); HEMATOCRIT 31.5 % (42.0-54.0); HEMOGLOBIN 10.6 g/dL (13.5-18.0); LYMPHOCYTES # (AUTO) 1.9 X10^3/uL (1.3-2.9); LYMPHOCYTES % (AUTO) 6.6 % (21.0-51.0); MEAN CORPUSCULAR HEMOGLOBIN 29.9 pg (27.0-34.0); MEAN CORPUSCULAR HGB CONC 33.5 g/dL (33.0-35.0); MEAN CORPUSCULAR VOLUME 89.3 fL (80.0-100.0); MEAN PLATELET VOLUME 10.3 fL (7.4-11.0); MONOCYTES # (AUTO) 1.8 x10^3/uL (0.3-0.8); MONOCYTES % (AUTO) 6.3 % (0.0-13.0); NEUTROPHILS % (AUTO) 86.8 % (42.0-75.0); PLATELET COUNT 219 X10^3/uL (150.0-450.0); RED BLOOD COUNT 3.53 X10^6/uL (4.7-6.0); WHITE BLOOD COUNT 28.8 X10^3/uL (3.6-10.0)
[2024-04-15 05:38] LABS: ALANINE AMINOTRANSFERASE 43 Units/L (12-78); ALBUMIN 1.7 g/dL (3.4-5.0); ALKALINE PHOSPHATASE 115 Units/L (46-116); ASPARTATE AMINO TRANSFERASE 29 Units/L (15-37); BLOOD UREA NITROGEN 42 mg/dL (7-18); CALCIUM 8.1 mg/dL (8.5-10.1); CARBON DIOXIDE 36.5 mmol/L (21-32); CHLORIDE 107 mmol/L (98-107); COR CA(FOR HYPOALB) 9.9 mg/dL (8.5-10.1); COR NA(FOR HYPERGLY) 148 mmol/L (136-145); CREATININE 0.89 mg/dL (0.70-1.30); GLUCOSE 198 mg/dL (65-99); MAGNESIUM 2.3 mg/dL (2.0-2.9); SODIUM 146 mmol/L (136-145); eGFR NON BLACK RACES > 60 (>60)
[2024-04-15 05:39] LABS: POTASSIUM 2.5 mmol/L (3.5-5.1)
[2024-04-15 05:47] LABS: ANISOCYTOSIS SLIGHT; PLATELET MORPHOLOGY COMMENT NORMAL (NORMAL)
[2024-04-15 05:48] LABS: OVALOCYTES SLIGHT; TEAR DROP CELLS SLIGHT
[2024-04-15 08:23] VITALS: TEMP 99.3
--- NOTE | 2024-04-15 10:48 | RAD ---
EXAM:CHEST, 1 VIEWHISTORY:RESPIRATORY DISTRESS, VENTILATOR PROTOCOL ; SX: APPY, MADELYN, HERNIA REPAIR, JOINT REPLACEMENTCOMPARISON:04/14/2024FINDINGS: Right central venous catheter unchanged.Similar bilateral pleural-parenchymal opacities. No pneumothorax.No acute osseous abnormality.IMPRESSION:Similar chest without acute change.THIS IS AN ELECTRONICALLY VERIFIED FINAL REPORT04/15/2024 10:44 AM - Electronically signed by Kevin Edouard MD
[2024-04-15] MEDS ORDERED: VERSED IV PRN (12:59)
[2024-04-15] MEDS: MORPHINE SULFATE INJ 2 MG INJ IVP PRN (13:34)
[2024-04-15 14:55] VITALS: O2SAT 94
[2024-04-15 16:03] VITALS: BP 88/46; PULSE 88
[2024-04-15 17:05] VITALS: RESP 25
--- NOTE | 2024-04-16 11:27 | PCM.DCPLAN ---
DISCHARGE SUMMARY Admission Date Date of Admission: 04/10/24 Discharge Date Discharge Date: 04/15/24 Admission Diagnoses (1) Endotracheal tube present: Status: Acute (2) Acute hypercapnic respiratory failure: Status: Acute (3) Septic shock: Status: Acute (4) Hospital-acquired pneumonia: Status: Acute (5) Klebsiella pneumoniae pneumonia: Status: Acute (6) MRSA pneumonia: Status: Acute (7) CHF exacerbation: Status: Acute (8) Hypotension: Status: Acute (9) Atrial fibrillation: Status: Acute Discharge Medications Discharge Medications: Prescriptions: Hospital Course Latest Lab Results: Laboratory Last Values WBC 28.8 X10^3/uL (3.6-10.0) H 04/15/24 04:30 RBC 3.53 X10^6/uL (4.7-6.0) L 04/15/24 04:30 Hgb 10.6 g/dL (13.5-18.0) L 04/15/24 04:30 Hct 31.5 % (42.0-54.0) L 04/15/24 04:30 MCV 89.3 fL (80.0-100.0) 04/15/24 04:30 MCH 29.9 pg (27.0-34.0) 04/15/24 04:30 MCHC 33.5 g/dL (33.0-35.0) 04/15/24 04:30 RDW 16.0 % (11.6-16.5) 04/15/24 04:30 Plt Count 219 X10^3/uL (150.0-450.0) 04/15/24 04:30 Plt Count Comment Adequate (ADEQUATE) 04/15/24 04:30 MPV 10.3 fL (7.4-11.0) 04/15/24 04:30 Neut % (Auto) 86.8 % (42.0-75.0) H 04/15/24 04:30 Lymph % (Auto) 6.6 % (21.0-51.0) L 04/15/24 04:30 [place] % (Auto) 6.3 % (0.0-13.0) 04/15/24 04:30 Eos % (Auto) 0.0 % (0.9-2.9) L 04/15/24 04:30 Baso % (Auto) 0.3 % (0.2-1.0) 04/15/24 04:30 Neut # (Auto) 25.0 x10^3/uL (2.2-4.8) H 04/15/24 04:30 Lymph # (Auto) 1.9 X10^3/uL (1.3-2.9) 04/15/24 04:30 [place] # (Auto) 1.8 x10^3/uL (0.3-0.8) H 04/15/24 04:30 Eos # (Auto) 0.0 x10^3/uL (0.0-0.2) 04/15/24 04:30 Baso # (Auto) 0.1 X10^3/uL (0.0-0.1) 04/15/24 04:30 Absolute Nucleated RBC 0.1 /100WBC 04/15/24 04:30 Total Counted 100 04/15/24 04:30 Neutrophils % (Manual) 91 % (39-76) H 04/15/24 04:30 Band Neutrophils % 1 % (0-10) 04/14/24 05:05 Lymphocytes % (Manual) 3 % (13-43) L 04/15/24 04:30 Monocytes % (Manual) 6 % (4-9) 04/15/24 04:30 Plt Morphology Comment Normal (NORMAL) 04/15/24 04:30 RBC Morphology Abnormal (NORMAL) 04/15/24 04:30 Anisocytosis Slight A 04/15/24 04:30 Tear Drop Cells Slight 04/15/24 04:30 Ovalocytes Slight A 04/15/24 04:30 Sample Site Lr 04/15/24 05:00 ABG pH 7.570 (7.35-7.45) H* 04/15/24 05:00 ABG pCO2 43.0 mmHg (35.0-45.0) 04/15/24 05:00 ABG pO2 59.0 mmHg (80.0-100.0) L 04/15/24 05:00 ABG HCO3 39.4 mmol/L (22-26) H* 04/15/24 05:00 ABG O2 Saturation 94.0 % (90-100) 04/15/24 05:00 ABG Base Excess 15.6 mmol/L (-2.0-2.0) H 04/15/24 05:00 Hao Test Pos 04/15/24 05:00 A-a Gradient 172.0 mmHg 04/15/24 05:00 FiO2 40.0 04/15/24 05:00 Blood Gas Comments Milli well ae 04/15/24 05:00 Sodium 146 mmol/L (136-145) H 04/15/24 04:30 Corrected Sodium 148 mmol/L (136-145) H 04/15/24 04:30 Potassium 2.5 mmol/L (3.5-5.1) L* 04/15/24 04:30 Chloride 107 mmol/L (98-107) 04/15/24 04:30 Carbon Dioxide 36.5 mmol/L (21-32) H 04/15/24 04:30 BUN 42 mg/dL (7-18) H 04/15/24 04:30 Creatinine 0.89 mg/dL (0.70-1.30) 04/15/24 04:30 Est GFR (MDRD) Af Amer > 60 (>60) 04/15/24 04:30 Est GFR (MDRD) Non-Af > 60 (>60) 04/15/24 04:30 Glucose 198 mg/dL (65-99) H 04/15/24 04:30 POC Glucose (mg/dL) 153 mg/dL (65-99) H 04/15/24 10:34 Lactic Acid 1.5 mmol/L (0.4-2.0) 04/11/24 05:43 Calcium 8.1 mg/dL (8.5-10.1) L 04/15/24 04:30 Corrected Calcium 9.9 mg/dL (8.5-10.1) 04/15/24 04:30 Magnesium 2.3 mg/dL (2.0-2.9) 04/15/24 04:30 Total Bilirubin 0.40 mg/dL (0.2-1.0) 04/15/24 04:30 AST 29 Units/L (15-37) 04/15/24 04:30 ALT 43 Units/L (12-78) 04/15/24 04:30 Alkaline Phosphatase 115 Units/L (46-116) 04/15/24 04:30 Troponin I High Sens 11.1 ng/L (4.0-60.0) 04/10/24 10:09 Total Protein 5.0 g/dL (6.4-8.2) L 04/15/24 04:30 Albumin 1.7 g/dL (3.4-5.0) L 04/15/24 04:30 Globulin 3.3 g/dL (2.5-4.5) 04/15/24 04:30 Albumin/Globulin Ratio 0.5 Ratio (1.1-2.1) L 04/15/24 04:30 Prealbumin 9.1 mg/dL (18-35.7) L 04/11/24 05:43 Vancomycin Trough 15.7 ug/mL (15-20) 04/13/24 20:45 Hospital Course: Patiently originally admitted to the hospital with incarcerated ventral hernia that required small bowel resection with hernia repair. Steadily progressed and was then transition to swing bed status in the same facility. Had a code less than a week ago and was intubated. Respiratory status was greatly diminished and started to have bradycardia. After enervation, he was placed on dopamine and phenylephrine for blood pressure support, diltiazem due to A-fib with RVR, and multiple antibiotics due to bilateral hospital-associated pneumonia. Vanco and Zosyn were the most recent antibiotics. Cardiovascular status improved along with great improvement in his peripheral edema. Respiratory status remained poor. After discussion with the family, it was decided that he would be placed on hospice status and extubated That occurred earlier today. He was placed on comfort measures in the facility after extubation in transferred to hospice service's care at 1700 on 04/15/2024.
== END 2024-04-15 16:59 | disposition hospice, inpatient (51) | DRG 177 ==
LOC: ICU 07:00
PROVIDERS: ADMIT Family Medicine; ATTEND Family Medicine
DX: J15.212 Pneumonia due to Methicillin resistant Staphylococcus aureus; E87.6 Hypokalemia; E11.65 Type 2 diabetes mellitus with hyperglycemia; J15.0 Pneumonia due to Klebsiella pneumoniae; J96.02 Acute respiratory failure with hypercapnia; R00.1 Bradycardia, unspecified; E87.0 Hyperosmolality and hypernatremia; I50.9 Heart failure, unspecified; I95.89 Other hypotension; Z66 Do not resuscitate; Z78.1 Physical restraint status; Z29.89 Encounter for other specified prophylactic measures; I48.91 Unspecified atrial fibrillation; Z98.890 Other specified postprocedural states

== ENCOUNTER 2024-04-15 17:00 | Inpatient (IN) ==
[2024-04-15] MEDS ORDERED: ZOFRAN INJ 4 MG VIAL IVP PRN (17:30)
[2024-04-15] MEDS ORDERED: DULCOLAX SUPPOSITORY 10 MG RECTAL PRN (17:30)
[2024-04-15] MEDS ORDERED: TYLENOL SUPP 650 MG PR PRN (17:30)
[2024-04-15] MEDS ORDERED: ATIVAN INJ 2 MG VIAL IVP PRN (17:30)
[2024-04-15] MEDS ORDERED: TRANSDERM-SCOP TD PRN (17:30)
[2024-04-15] MEDS ORDERED: MORPHINE SULFATE INJ 2 MG INJ IVP PRN (17:30)
[2024-04-15 18:01] VITALS: BMI 25.3
[2024-04-15 18:21] VITALS: TEMP 99.2
[2024-04-15 19:11] VITALS: BP 0/0; PULSE 0; RESP 0; O2SAT 0
--- NOTE | 2024-04-17 10:45 | DR.SSS ---
SHORT STAY SUMMARY Admission Date Date of Admission: 04/15/24 Discharge Date Discharge Date: 04/15/24 Admission Diagnoses Admission Diagnoses: Septic shock due to hospital associated pneumonia, hospice care patient Discharge Diagnoses Discharge Diagnoses: Same Chief Complaint Chief Complaint: Hospice care History of Present Illness History of Present Illness: Patiently extubated earlier this day as family had elected for end-of-life/hospice care. He has remained in the hospital facility in the ICU after extubation until hospice services took over at 1700 today. Patient was in the ICU after acute respiratory failure while in the swing bed status. Past Medical History Past Medical History: Arthritis Past Surgical History Surgical History: Abdominal Surgery, Appendectomy, Cholecystectomy, Joint Replacement and Other Additional Surgical History: HERNIA REPAIR Allergies Allergies Allergy/AdvReac Type Severity Reaction Status Date / Time No Known Drug Allergies Allergy Verified 04/11/24 00:01 Medications Home Medications: No Known Drug Allergies Allergy (Verified 04/11/24 00:01) Social History Does any household member use tobacco: No Alcohol Use: None Drug Use: None Physical Exam Vital Signs: Last Vital Signs Temp 99.2 F 04/15/24 18:00 Pulse 0 L 04/15/24 18:53 Resp 0 L 04/15/24 18:53 BP 0/0 04/15/24 18:53 Pulse Ox 0 L 04/15/24 18:53 O2 Del Method Room Air 04/15/24 18:00 FiO2 40 04/15/24 12:00 Hospital Course Hospital Course: Admitted to hospice care services at 1700 after extubation earlier today. at 1948 on the same day. Discharge Medications Discharge Medications: Prescriptions: Discharge Plan Discharge Plan Patient Disposition: 20 Health Concerns: Post Hospitalization: new medications and changes needed to prevent readmission or further decline. Pt educated and given instructions on all concerns. Plan of Treatment: Continue with present treatment and follow up plan. Pt is to keep follow up appointment as instructed and take medications as ordered. Prescription drug monitoring program results: PDMP was not reviewed Prescriptions: No Action tamsulosin [Flomax] 0.4 mg Capsule 0.4 mg PO DAILY finasteride 5 mg Tablet 5 mg PO DAILY diltiazem HCl 30 mg tablet 30 mg PO TID Qty: 90 0RF Eliquis 5 mg tablet 5 mg PO BID 30 Days Qty: 60 0RF Orders to Discharge Patient Discharge Orders: Discharge (Routine); Ordered 04/15/24 Ordered By: Andres Maldonado
== END 2024-04-15 20:32 | disposition expired | DRG 189 ==
LOC: ICU 17:00
PROVIDERS: ADMIT Family Medicine; ATTEND Family Medicine
DX: J96.01 Acute respiratory failure with hypoxia; R52 Pain, unspecified; F41.8 Other specified anxiety disorders; Z51.5 Encounter for palliative care